=== PATIENT | female | born 1965 | race Caucasian/White ===

== ENCOUNTER 2020-03-10 16:41 | Emergency (ER) | payer SELFPAY ==
[~2020-03-10] VITALS: Ht 170.2 cm; Wt 61.4 kg
[~2020-03-10 16:41] MED LIST: ALPR0.5T PO; AMOX1TAB61 PO; IBUP200T44 PO; LORA-254 PO; NICO1PAT2 TD; TRAM50TA PO
[2020-03-10 16:44] VITALS: BP 127/76
[2020-03-10] MEDS ORDERED: DICL50TA2 PO (17:10)
[2020-03-10] MEDS ORDERED: METH4TAB2 PO (17:10)
[2020-03-10] MEDS ORDERED: HYDR-3165 PO (17:10)
--- NOTE | 2020-03-10 17:10 | PHYS DOC ---
Past History Past Medical History: Cancer, COPD, Depression, Sciatica (MCKENNA BRADLEY APRN) Past Surgical History: Cancer Surgery, Hysterectomy, Tubal ligation (MCKENNA BRADLEY APRN) Smoking: Greater than 1 pack/day Alcohol Use: Occasionally Drug Use: None (YENNEYMCKENNA MCKEON) Adult General Chief Complaint Chief Complaint: BACK PAIN - NO INJURY HPI HPI Patient is a female with history of sciatica, depression, who presents to the ED today complaining of a sharp 8 out of 10 right low back pain radiating to the right lower extremity that has been going on for 3 days. Patient denies any injuries. Patient states the pain is worse on certain movements of the right lower extremity. Denies anything specifically relieving the pain. Denies any loss of bowel/bladder function. Denies any injuries. She states she was seen yesterday at urgent care and was given cyclobenzaprine. She states it is not touching her pain. (MIRNAMCKENNA MCKEON) Review of Systems Review of Systems Constitutional: Denies fever or chills [] GI: Denies abdominal pain, nausea, vomiting, bloody stools or diarrhea [] : Denies dysuria or hematuria [] Musculoskeletal: Reports right low back pain radiating to the right lower extremity Integument: Denies rash or skin lesions [] Neurologic: Denies headache, focal weakness or sensory changes [] All other systems were reviewed and found to be within normal limits, except as documented in this note. (MCKENNA BRADLEY APRN) Allergies Allergies Allergies Coded Allergies Type Severity Reaction Last Updated Verified Sulfa (Sulfonamide Antibiotics) Allergy Intermediate N/V hives 03/10/20 Yes (MCKENNA BRADLEY APRN) Physical Exam Physical Exam Constitutional: Well developed, well nourished, no acute distress, non-toxic appearance. [] Abdomen: Bowel sounds normal, soft, no tenderness, no masses, no pulsatile masses. [] Skin: Warm, dry, no erythema, no rash. [] Back: Moderate tenderness on palpation of the right SI joint, no midline lumbar spine tenderness, no CVA tenderness. [] Positive straight leg raises at approximately 30 degrees on the right lower extremity. Extremities: No tenderness, no cyanosis, no clubbing, ROM intact, no edema. [] Neurologic: Alert and oriented X 3, normal motor function, normal sensory function, no focal deficits noted. [] Psychologic: Affect normal, judgement normal, mood normal. [] (MCKENNA BRADLEY APRN) EKG EKG [] (MCKENNA BRADLEY APRN) Radiology/Procedures Radiology/Procedures [] (MCKENNA BRADLEY APRN) Heart Score Risk Factors: Risk Factors: DM, Current or recent (<one month) smoker, HTN, HLP, family history of CAD, obesity. Risk Scores: Risk Factors: DM, Current or recent (<one month) smoker, HTN, HLP, family history of CAD, obesity. (MCKENNA BRADLEY APRN) Course & Med Decision Making Course & Med Decision Making Pertinent Labs and Imaging studies reviewed. (See chart for details) This is a 54-year-old female patient presented to the ED today with a sciatic pain to the right side, no injuries, no cauda equina syndrome symptoms. Was provided pain relief in the ED with Toradol and Solu-Medrol. Discharge to home. Follow-up with PCP and neurosurgery in 1 to 2 weeks. (MCKENNA BRADLEY APRN) Dragon Disclaimer Dragon Disclaimer This electronic medical record was generated, in whole or in part, using a voice recognition dictation system. (MCKENNA BRADLEY APRN) Departure Departure: Impression: Primary Impression: Sciatica of right side Disposition: 01 DC HOME SELF CARE/HOMELESS Condition: STABLE Referrals: PCP,NO (PCP) follow up with your doctor in 1-2 weeks Patient Instructions: Sciatica, [id number] Additional Instructions: You were evaluated in the emergency room for sciatica. Continue doing the exercises. Take the prescribed medications as ordered. Follow-up with your own doctor in 1 to 2 weeks Scripts Diclofenac Potassium (DICLOFENAC POTASSIUM) 50 Mg Tablet 1 TAB PO BID, #20 TAB 1 Refill Prov: MCKENNA BRADLEY APRN 03/10/20 Methylprednisolone (MEDROL) 4 Mg Tab.ds.pk 1 PKG PO UD, #1 PKG Prov: MCKENNA BRADLEY APRN 03/10/20 Hydrocodone Bit/Acetaminophen (NORCO 5-325 TABLET) 1 Each Tablet 1 TAB PO Q6-8HRS PRN for PAIN, #12 TAB Prov: MCKENNA BRADLEY APRN 03/10/20 MCKENNA BRADLEY APRN Mar 10, 2020 17:10 CANDIDA JOHNSON DO Mar 11, 2020 06:10
[2020-03-10] MEDS ORDERED: KETOROLAC 60 MG/2 ML VIAL. IM ONE (17:30)
[2020-03-10] MEDS ORDERED: methylPREDNISolone SOD SUCC PF 125 MG/2 ML VIAL. IM ONE (17:30)
== END 2020-03-10 18:25 | disposition home or self-care (01) ==
LOC: ER 16:41
DX: M54.41 Lumbago with sciatica, right side (principal); J44.9 Chronic obstructive pulmonary disease, unspecified; Z87.891 Personal history of nicotine dependence; Z90.710 Acquired absence of both cervix and uterus; Z98.51 Tubal ligation status; Z88.2 Allergy status to sulfonamides
CPT/HCPCS: 96372; 99284; J1885; J2930

== ENCOUNTER 2020-03-13 19:46 | Inpatient (IN) | payer SELFPAY ==
[~2020-03-13] VITALS: Ht 170.2 cm; Wt 63.0 kg
[~2020-03-13 19:46] MED LIST changes: +DICL50TA2 PO; +HYDR-3165 PO; +METH4TAB2 PO
--- NOTE | 2020-03-13 20:06 | PHYS DOC ---
Past History Past Medical History: Cancer, COPD, Depression, Sciatica Past Surgical History: Cancer Surgery, Hysterectomy, Tubal ligation Additional Past Surgical Histo: mastectomy with breast reconstruction Smoking: Greater than 1 pack/day Alcohol Use: None Drug Use: None General Adult EDM: Chief Complaint: ABDOMINAL PAIN HPI: HPI: 54-year-old female presents via EMS with epigastric abdominal pain. It started this morning as she got out of bed. She denies any falls or trauma. It came out of nowhere. It is a sharp cramping sensation. It was coming and going in waves but now is pretty persistent. She rates it an 8 out of 10. She denies vomiting. No dysuria or urinary frequency. She admits to having constipation for years. She has no history of pancreatitis. She has been drinking more alcohol lately because she is getting . She used to drink heavily. She denies fever or chills. Review of Systems: Review of Systems: Constitutional: Denies fever or chills Eyes: Denies change in visual acuity HENT: Denies nasal congestion or sore throat Respiratory: Denies cough or shortness of breath Cardiovascular: Denies chest pain or edema GI: Epigastric abdominal pain. Denies nausea, vomiting, bloody stools or diarrhea : Denies dysuria Musculoskeletal: Denies back pain or joint pain Integument: Denies rash Neurologic: Denies headache, focal weakness or sensory changes Endocrine: Denies polyuria or polydipsia Lymphatic: Denies swollen glands Psychiatric: Denies depression or anxiety Allergies: Allergies: Allergies Coded Allergies Type Severity Reaction Last Updated Verified Sulfa (Sulfonamide Antibiotics) Allergy Intermediate N/V hives 03/10/20 Yes Physical Exam: PE: Constitutional: Well developed, well nourished, no acute distress, non-toxic appearance. [] HENT: Normocephalic, atraumatic, bilateral external ears normal, oropharynx moist, no oral exudates, nose normal. [] Eyes: PERRLA, EOMI, conjunctiva normal, no discharge. [] Neck: Normal range of motion, no tenderness, supple, no stridor. [] Cardiovascular: Heart rate 102, regular rhythm, no murmur [] Lungs & Thorax: Bilateral breath sounds clear to auscultation [] Abdomen: Bowel sounds normal, soft, epigastric tenderness, no masses, no pulsatile masses. [] Skin: Warm, dry, no erythema, no rash. [] Back: No tenderness, no CVA tenderness. [] Extremities: No tenderness, no cyanosis, no clubbing, ROM intact, no edema. [] Neurologic: Alert and oriented X 3, normal motor function, normal sensory function, no focal deficits noted. [] Psychologic: Affect normal, judgement normal, mood normal. [] Current Patient Data: Vital Signs: Vital Signs Date Time Temp Pulse Resp B/P (MAP) Pulse Ox O2 Delivery O2 Flow Rate FiO2 03/13/20 19:48 97.7 114 22 160/100 (120) 98 EKG: EKG: [] Radiology/Procedures: Radiology/Procedures: [] Impressions: Exam: CT of abdomen and pelvis with contrast INDICATION: Epigastric pain TECHNIQUE: Sequential axial images through the abdomen and pelvis obtained following the administration of 75 mL of Omni 300 IV contrast. Sagittal and coronal reformatted images were reconstructed from the axial data and reviewed. Comparisons: None FINDINGS: Heart size is normal. No pericardial effusion. Visualized lung bases are clear. No pleural effusion. Diffuse hepatic steatosis. Spleen, gallbladder and adrenals are unremarkable. Inflammatory changes surrounding the pancreas. There is mild pancreatic ductal dilatation. Calcification is noted at the pancreatic head. Kidneys demonstrate symmetric enhancement. No perinephric inflammation or hydronephrosis. No renal or ureteral calculi are identified. Bladder is decompressed not well evaluated. Uterus is not enlarged. No abnormal adnexal mass. Large and small bowel are unremarkable. Appendix is normal. No free intra-abdominal air or fluid. No obstruction. Abdominal aorta has a normal course and caliber. Abdominal vasculature is patent. No enlarged abdominal lymph nodes are identified. No suspicious osseous lesions or acute fractures. IMPRESSION: 1. Findings of acute pancreatitis. No peripancreatic fluid collection. 2. Calcifications at the pancreatic head with mild pancreatic ductal dilatation, likely sequela of chronic pancreatitis. 3. Hepatic steatosis. Exposure: One or more of the following in the visualized dose reduction techniques were utilized for this examination: 1. Automated exposure control 2. Adjustment of the MA and/or KV according to patient size 3. Use of iterative of reconstructive technique Electronically signed by: Janette Dutton MD (03/13/2020 9:36 PM) [id number] DICTATED AND SIGNED BY: JANETTE DUTTON MD DATE: 03/13/202135 CC: COLT SALINAS DO; PCP,SARTHAK ~ Heart Score: Risk Factors: Risk Factors: DM, Current or recent (<one month) smoker, HTN, HLP, family history of CAD, obesity. Risk Scores: Score 0 - 3: 2.5% MACE over next 6 weeks - Discharge Home Score 4 - 6: 20.3% MACE over next 6 weeks - Admit for Clinical Observation Score 7 - 10: 72.7% MACE over next 6 weeks - Early Invasive Strategies Course & Med Decision Making: Course & Med Decision Making Pertinent Labs and Imaging studies reviewed. (See chart for details) The patient CT scan shows acute pancreatitis on possible chronic pancreatitis. I have given the patient morphine and will now give her a milligram of Dilaudid. She has not eaten anything today. She understands she cannot eat or drink anything. I will let her have ice chips. Her lipase is over 700. Not sure if her levels increasing or decreasing. I spoke with Dr. Gómez and he has accepted the patient for admission. [] Conrad Disclaimer: Conrad Disclaimer: This electronic medical record was generated, in whole or in part, using a voice recognition dictation system. Departure Departure: Impression: Primary Impression: Pancreatitis Disposition: ADMITTED INPT THIS HOSP Admitting Physician: Isela Gómez Condition: STABLE Referrals: PCP,NO (PCP) COLT SALINAS DO Mar 13, 2020 20:06
[2020-03-13] MEDS ORDERED: IOHEXOL 300 MG/ML 75 ML VIAL. IV ONE (20:15)
[2020-03-13] MEDS ORDERED: ONDANSETRON PF 4 MG/2 ML VIAL. IVP ONE (20:15)
[2020-03-13] MEDS ORDERED: MORPHINE SULFATE 4 MG/ML DISP.SYRIN. IV ONE (20:15)
[2020-03-13 20:20] LABS: CALCIUM 9.2 mg/dL (8.5-10.1); CREATININE 0.8 mg/dL (0.6-1.0); GFR 74.7; POTASSIUM 3.4 mmol/L (3.5-5.1)
[2020-03-13 20:26] LABS: ALBUMIN 3.2 g/dL (3.4-5.0); TOTAL BILIRUBIN 1.1 mg/dL (0.2-1.0); TOTAL PROTEIN 6.3 g/dL (6.4-8.2)
[2020-03-13] MEDS ORDERED: CONTRAST GIVEN. MC PRN (20:30)
[2020-03-13 20:34] LABS: BASO % 0 % (0-3); EOS % 0 % (0-3); HEMATOCRIT 38.6 % (36.0-47.0); HEMOGLOBIN 12.8 g/dL (12.0-15.5); LYMPH # 2.8 x10^3/uL (1.0-4.8); LYMPH % 22 % (24-48); MEAN CORPUSCULAR HEMOGLOBIN 41 pg (25-35); MEAN CORPUSCULAR HGB CONC 33 g/dL (31-37); MEAN CORPUSCULAR VOLUME 122 fL (79-100); MONO # 0.8 x10^3/uL (0.0-1.1); MONO % 6 % (0-9); NEUT # 9.1 x10^3uL (1.8-7.7); NEUT % 71 % (31-73); PLATELET COUNT 307 x10^3/uL (140-400); RED BLOOD COUNT 3.17 x10^6/uL (3.50-5.40); RED CELL DISTRIBUTION WIDTH 24.7 % (11.5-14.5); WHITE BLOOD COUNT 12.8 x10^3/uL (4.0-11.0)
[2020-03-13 21:02] LABS: % EOS 1 % (0-5); % LYMPHS 29 % (24-48); % MONOS 3 % (0-10); % SEGS 67 % (35-66)
[2020-03-13 21:03] LABS: ANISOCYTOSIS MOD; PLT ESTIMATE ADEQUATE (ADEQUATE)
--- NOTE | 2020-03-13 21:38 | RAD ---
Exam: CT of abdomen and pelvis with contrast INDICATION: Epigastric pain TECHNIQUE: Sequential axial images through the abdomen and pelvis obtained following the administration of 75 mL of Omni 300 IV contrast. Sagittal and coronal reformatted images were reconstructed from the axial data and reviewed. Comparisons: None FINDINGS: Heart size is normal. No pericardial effusion. Visualized lung bases are clear. No pleural effusion. Diffuse hepatic steatosis. Spleen, gallbladder and adrenals are unremarkable. Inflammatory changes surrounding the pancreas. There is mild pancreatic ductal dilatation. Calcification is noted at the pancreatic head. Kidneys demonstrate symmetric enhancement. No perinephric inflammation or hydronephrosis. No renal or ureteral calculi are identified. Bladder is decompressed not well evaluated. Uterus is not enlarged. No abnormal adnexal mass. Large and small bowel are unremarkable. Appendix is normal. No free intra-abdominal air or fluid. No obstruction. Abdominal aorta has a normal course and caliber. Abdominal vasculature is patent. No enlarged abdominal lymph nodes are identified. No suspicious osseous lesions or acute fractures. IMPRESSION: 1. Findings of acute pancreatitis. No peripancreatic fluid collection. 2. Calcifications at the pancreatic head with mild pancreatic ductal dilatation, likely sequela of chronic pancreatitis. 3. Hepatic steatosis. Exposure: One or more of the following in the visualized dose reduction techniques were utilized for this examination: 1. Automated exposure control 2. Adjustment of the MA and/or KV according to patient size 3. Use of iterative of reconstructive technique Electronically signed by: Janette Delgado MD (03/13/2020 9:36 PM) [id number]
[2020-03-13] MEDS ORDERED: HYDROmorphone PF 1 MG/ML DISP.SYRIN ONE (22:02)
[2020-03-13] MEDS ORDERED: IV DEXTROSE 5 %-0.45 % NACL 1,000 ML IV ONE (22:15)
[2020-03-13] MEDS ORDERED: ONDANSETRON PF 4 MG/2 ML VIAL. IVP PRN (22:15)
[2020-03-13] MEDS ORDERED: ACETAMINOPHEN 325 MG TABLET PO PRN (22:15)
[2020-03-13] MEDS ORDERED: PIPERACILLIN/TAZOBACTAM 3.375 GM VIAL IV ONE (22:19)
[2020-03-13] MEDS ORDERED: IV NORMAL SALINE 50ML 50 ML ONE (22:19)
[2020-03-13] MEDS ORDERED: PIPERACILLIN/TAZOBACTAM 3.375 GM in IV NORMAL SALINE 50ML 50 ML IV ONE (22:30)
[2020-03-13] MEDS ORDERED: HYDROmorphone PF 1 MG/ML DISP.SYRIN IVP ONE (22:30)
[2020-03-13] MEDS ORDERED: IV NORMAL SALINE 1,000ML 1,000 ML IV ONE (23:00)
[2020-03-13 23:27] VITALS: BP 157/79
[2020-03-13] MEDS: HYDROmorphone PF 1 MG/ML DISP.SYRIN IV PRN (23:50)
[2020-03-14] MEDS ORDERED: Influenza vaccine per PROTOCOL. MC PRN (01:15)
[2020-03-14] MEDS: HYDROmorphone PF 1 MG/ML DISP.SYRIN IV PRN ×9 (02:18→20:21)
--- NOTE | 2020-03-14 05:21 | NUR ---
at 2313 on 03/13/2020 The patient, YUNI SCHUSTER, 54 y/o, F admitted by TRISTIAN ESPANA MD, was given written information regarding hospital policies, unit procedures and contact persons. Valuables were checked and .documented. Pt alert responds appropriately and VSS. Pain reported upper abdomen.
--- NOTE | 2020-03-14 05:27 | NUR ---
Pt has been cooperative through the night. Pain of upper abdomen persists. PRN hydromorphone has been given x3 since admission and pt has reported some pain relief with each dose and has slept off and on.
[2020-03-14 05:36] VITALS: BP 106/69
[2020-03-14] MEDS ORDERED: FLU VACC QS 2020-21(6MOS+)/PF 0.5 ML SYRINGE. VAX IM ONE (09:00)
[2020-03-14 10:46] VITALS: BP 101/66
[2020-03-14] MEDS ORDERED: HALOPERIDOL LACT 5 MG/ML VIAL. IM PRN (15:00)
[2020-03-14] MEDS ORDERED: cloNIDine HCL 0.1 MG TABLET PO PRN (15:00)
[2020-03-14] MEDS ORDERED: diphenhydrAMINE 50 MG/ML VIAL IVP PRN (15:00)
[2020-03-14 15:12] VITALS: BP 109/69
--- NOTE | 2020-03-14 15:27 | HP ---
ADMIT DATE: 03/13/2020 HISTORY OF PRESENT ILLNESS: The patient is a 54-year-old female patient who came to the Emergency Room with complaint of abdominal pain, mostly in epigastric area, started on the day of admission, as she got out of bed. She denied any falls or trauma. It came out of nowhere. It is a sharp, cramping sensation which is coming and going in waves, but now by the time she arrived to the Emergency Room, it was very persistent and rated about 8/10. Denied any vomiting, dysuria or urinary frequency. Did complain of constipation and she has a history of pancreatitis about 5 years ago related to gallstones. It passed on its own. She has been drinking alcohol lately because she is getting . She used to drink heavily. The last drink was about a pint of whiskey 2 days ago. Denied any fevers or chills. She was extensively investigated in the Emergency Room, and she has had a CT scan of the abdomen and pelvis, which basically showed that the patient has finding of acute pancreatitis. No peripancreatic fluid collection. Calcification of the pancreatic head with mild pancreatic ductal dilatation, likely sequelae of chronic pancreatitis. She has also hepatic steatosis. Her lab work showed that her serum lipase was high at 764 and has mild leukocytosis with a white cell count 12,800. Her MCV was extremely high at 122. However, the platelet counts are normal. The patient was admitted with probably acute on chronic alcohol-induced pancreatitis. She was kept n.p.o., started on IV fluid and IV hydromorphone. We will monitor her lab work closely. We will start her on alcohol withdrawal protocol and also a banana bag on a daily basis and once her serum lipase normalized and she is able to eat and drink, she can be discharged home. TRISTIAN ESPANA MD DR: ALLYSON/mercedes JOB#: [id number] / [id number]
[2020-03-14 16:02] LABS: ALBUMIN 2.6 g/dL (3.4-5.0); CALCIUM 8.1 mg/dL (8.5-10.1); CREATININE 0.6 mg/dL (0.6-1.0); GFR 104.2; TOTAL PROTEIN 5.2 g/dL (6.4-8.2)
[2020-03-14 16:22] LABS: POTASSIUM 2.9 mmol/L (3.5-5.1)
[2020-03-14] MEDS: POTASSIUM CL 40MEQ D5-0.45NACL 1,000 ML IV SCH (16:52)
[2020-03-14 19:15] VITALS: BP 93/60
[2020-03-14] MEDS: HYDROmorphone PF 1 MG/ML DISP.SYRIN IVP PRN (22:51)
[2020-03-14 23:16] VITALS: BP 90/58
[2020-03-15] MEDS: HYDROmorphone PF 1 MG/ML DISP.SYRIN IVP PRN ×6 (01:12→23:46)
[2020-03-15] MEDS: POTASSIUM CL 40MEQ D5-0.45NACL 1,000 ML IV SCH (03:52)
[2020-03-15 05:16] VITALS: BP 110/70
[2020-03-15 07:08] LABS: ALBUMIN 2.4 g/dL (3.4-5.0); ALBUMIN/GLOBULIN RATIO 0.9 (1.0-1.7); CALCIUM 7.7 mg/dL (8.5-10.1); CREATININE 0.5 mg/dL (0.6-1.0); GFR 128.6; POTASSIUM 3.6 mmol/L (3.5-5.1); TOTAL BILIRUBIN 0.8 mg/dL (0.2-1.0)
[2020-03-15] MEDS: MVI, ADULT NO.4 WITH VIT K 10 ML, THIAMINE INJ 100 MG, FOLIC ACID INJ 1 MG in IV NORMAL... IV SCH (08:46)
[2020-03-15 10:29] VITALS: BP 120/81
[2020-03-15 15:31] VITALS: BP 132/82
[2020-03-15 19:11] VITALS: BP 155/100
--- NOTE | 2020-03-15 21:59 | NUR ---
Pt was in bed apon assessment and med pass. Pt had complaints of abd pain at a 7 of 10. Pt received dilaudid per order. Pt stated she feels much better compared to when she was admitted. Pt was calm and cooperative this evening with staff, currently resting in bed. Will continue to monitor.
[2020-03-15 23:34] VITALS: BP 130/89
[2020-03-16] MEDS: HYDROmorphone PF 1 MG/ML DISP.SYRIN IVP PRN ×4 (02:08→10:53)
[2020-03-16] MEDS: POTASSIUM CL 40MEQ D5-0.45NACL 1,000 ML IV SCH ×2 (02:51→07:00)
[2020-03-16 05:47] VITALS: BP 143/90
[2020-03-16 06:59] LABS: CREATININE 0.5 mg/dL (0.6-1.0); GFR 128.6; POTASSIUM 3.8 mmol/L (3.5-5.1)
--- NOTE | 2020-03-16 07:49 | NUR ---
MEDICATION NOTE-New bag of IVF not administered at this time, current bag more than half full. Will change when empty.
[2020-03-16] MEDS: MVI, ADULT NO.4 WITH VIT K 10 ML, THIAMINE INJ 100 MG, FOLIC ACID INJ 1 MG in IV NORMAL... IV SCH (08:32)
--- NOTE | 2020-03-16 08:59 | PN ---
DATE: 03/15/2020 SUBJECTIVE: The patient is resting, slightly propped up in bed, in no apparent distress. On questioning her, she stated her pain is much less severe than before. Denied any nausea or vomiting. Denied any diarrhea. Denied any chills, rigors or fever. PHYSICAL EXAMINATION: GENERAL: When I examined her, she was pale, cachectic, but no jaundice, cyanosis or thyromegaly. No jugular venous distention. No limb edema. VITAL SIGNS: Her heart rate was 89, blood pressure 120/81, temperature was 98.8, respiratory rate 20, and oxygen saturation was 94% on room air. HEAD, EYES, EARS, NOSE AND THROAT: Normocephalic, atraumatic. NECK: Supple. HEART: Showed normal first and second heart sounds. No gallop or murmur. CHEST: Clear to auscultation. No crepitation or rhonchi. ABDOMEN: Distended, soft, mild tenderness in epigastric area. NEUROLOGIC: She is awake, alert, responding appropriately. All cranial nerves intact. She moves extremities without difficulty. She ambulates without assistance or assistive devices. Her intake was 1500, no output was recorded. LABORATORY DATA: Her lab work this morning showed a hemoglobin of 12.8, hematocrit 38.6 with white cell count of 12,800 and platelets 307,000. Her chemistry showed her serum sodium was 135, potassium 3.5, chloride was 101, bicarbonate 25, anion gap of 9, BUN 11, creatinine was 0.5, estimated GFR was 128 mL per minute. Her glucose was 97, calcium was 7.7. Total bilirubin, AST, ALT, alkaline phosphatase were normal. Total protein 5, albumin was 2.4 and serum lipase was 760. ASSESSMENT: 1. Acute alcohol-induced pancreatitis. 2. Chronic calcific pancreatitis. 3. Other medical problems include chronic obstructive pulmonary disease, sciatica, breast cancer, status post bilateral mastectomy and bilateral breast implant. PLAN: To start her on a clear liquid diet and advance as tolerated. Hopefully, if her serum lipase normalizes tomorrow morning, she can be discharged home. TRISTIAN ESPANA MD DR: ALLYSON/mercedes JOB#: [id number] / [id number]
[2020-03-16 12:06] VITALS: BP 122/77
--- NOTE | 2020-03-16 14:24 | DS ---
DATE OF DISCHARGE: 03/13/2020 HOSPITAL COURSE: The patient is resting, slightly propped up in bed, in no apparent distress. She has had no more pain. She is tolerating her diet without any difficulty and her serum lipase is down to 427. Her serum potassium is normalized at 3.8 and a decision was made to discharge her home. PHYSICAL EXAMINATION: GENERAL: When I examined her, she was pale, cachectic, but no jaundice, cyanosis, or thyromegaly. No jugular venous distension. No limb edema. VITAL SIGNS: Her heart rate was 103, blood pressure was 122/77, temperature was 98.4, respiratory rate was 18 and oxygen saturation was 94% on room air. HEAD, EYES, EARS, NOSE AND THROAT: Normocephalic, atraumatic. NECK: Supple. CARDIAC: Normal first and second heart sounds. No gallop, rub or murmur. CHEST: Clear to auscultation. No crepitation or rhonchi. ABDOMEN: Distended, soft, nontender. NEUROLOGIC: She was awake, alert, responding appropriately. All cranial nerves intact. She moves extremities without difficulty. She ambulates without assistance or assistive devices. Her intake was 1470, no output was recorded. LABORATORY DATA: Her lab work this morning showed a serum sodium 134, potassium 3.8, chloride 99, bicarbonate 29, anion gap of 6, BUN 5, creatinine was 0.5, estimated GFR was 128 mL per minute. Her glucose was 84, calcium was 8 and serum lipase was 427. DISCHARGE MEDICATIONS: She was discharged home to continue on alprazolam 0.5 mg daily, diclofenac potassium 50 mg twice a day. The patient was warned that this might cause gastritis and acid reflux. Hydrocodone/APAP 5/325 one tablet every 6 hours. She was also given a tapering course of Ativan 1 mg 3 times a day for 3 days, 1 mg twice a day for 3 days and then 1 mg once a day for 3 days. She was discharged also on omeprazole 40 mg once a day. FINAL DISCHARGE DIAGNOSES: 1. Acute alcohol-induced pancreatitis. The patient has also chronic calcific pancreatitis. 2. Chronic obstructive pulmonary disease. 3. Sciatica. 4. Breast cancer, status post bilateral mastectomy and bilateral breast implant. AHMED M. MALORIE, MD DR: ALLYSON/mecredes JOB#: [id number] / [id number]
--- NOTE | 2020-03-16 14:43 | NUR ---
DISCHARGE-Pt discharge to home for self care. Pt escorted to waiting vehicle via wheelchair by hospital staff. All personal belongings sent with pt, as well as discharge papers et hard prescriptions.
== END 2020-03-16 14:42 | disposition home or self-care (01) | DRG 440 ==
LOC: ER 19:46 → 1 SOUTH 22:00 → ER 23:06
PROVIDERS: ADMIT Internal Medicine; ATTEND Internal Medicine
DX: K85.20 Alcohol induced acute pancreatitis without necrosis or infection (principal); J44.9 Chronic obstructive pulmonary disease, unspecified; K86.0 Alcohol-induced chronic pancreatitis; F10.20 Alcohol dependence, uncomplicated; K76.0 Fatty (change of) liver, not elsewhere classified; M54.30 Sciatica, unspecified side; Z85.3 Personal history of malignant neoplasm of breast; Z87.891 Personal history of nicotine dependence; Z90.13 Acquired absence of bilateral breasts and nipples; Z90.710 Acquired absence of both cervix and uterus; Z98.82 Breast implant status; F32.9 Major depressive disorder, single episode, unspecified; Z98.51 Tubal ligation status; Z88.2 Allergy status to sulfonamides
CPT/HCPCS: 36415; 74177; 80048; 80053; 83690; 85007; 85025; 90471; 96365; 96375; 99285; 99406; J1170; J2060; J2270; J2405; J2543; J7042; Q9967; 90686; J7030

== ENCOUNTER 2020-03-22 11:55 | Emergency (ER) | payer SELFPAY ==
[~2020-03-22] VITALS: Ht 170.2 cm; Wt 63.0 kg
[2020-03-22] MEDS ORDERED: predniSONE 20 MG TABLET PO ONE (12:30)
[2020-03-22] MEDS ORDERED: HYDROcodone/APAP 7.5/325MG 1 TAB TABLET PO ONE (12:30)
--- NOTE | 2020-03-22 12:33 | PHYS DOC ---
Past History Past Medical History: Cancer, COPD, Depression, Pancreatitis, Sciatica, Other Additional Past Medical Histor: SCOLIOSIS, DDD, KYPHOSIS Past Surgical History: Cancer Surgery, Hysterectomy, Tubal ligation Additional Past Surgical Histo: double mastectomy with breast reconstruction Smoking: Greater than 1 pack/day Alcohol Use: None Drug Use: None General Adult EDM: Chief Complaint: BACK PAIN OR INJURY HPI: HPI: 54-year-old female presents with right lower back pain and sciatic symptoms down to her foot. The patient has had issues with her low back and sciatica symptoms on the side for some time. She does not have insurance. She was recently admitted to the hospital for pancreatitis which is improved. She has had loss of bladder on her way to the restroom twice recently. She thinks it is due to the sciatic discomfort. The pain is constant and only waxes and wanes. It does not go away. She just does not know what else to do. She does not have a primary care physician. She has not seen a neurosurgeon. She just wants the pain to go away so she can function at home. She denies any new trauma or falls. She feels unsteady on her feet and is worried about falling due to the pain. Review of Systems: Review of Systems: Constitutional: Denies fever or chills Eyes: Denies change in visual acuity HENT: Denies nasal congestion or sore throat Respiratory: Denies cough or shortness of breath Cardiovascular: Denies chest pain or edema GI: Denies abdominal pain, nausea, vomiting, bloody stools or diarrhea : Denies dysuria Musculoskeletal: Back pain with right-sided radiculopathy Integument: Denies rash Neurologic: Denies headache, focal weakness or sensory changes Endocrine: Denies polyuria or polydipsia Lymphatic: Denies swollen glands Psychiatric: Denies depression or anxiety Allergies: Allergies: Allergies Coded Allergies Type Severity Reaction Last Updated Verified Sulfa (Sulfonamide Antibiotics) Allergy Intermediate N/V hives 03/22/20 Yes Physical Exam: PE: Constitutional: Well developed, well nourished, no acute distress, non-toxic appearance. [] HENT: Normocephalic, atraumatic, bilateral external ears normal, oropharynx moist, no oral exudates, nose normal. [] Eyes: PERRLA, EOMI, conjunctiva normal, no discharge. [] Neck: Normal range of motion, no tenderness, supple, no stridor. [] Cardiovascular: Heart rate regular rhythm, no murmur [] Lungs & Thorax: Bilateral breath sounds clear to auscultation [] Abdomen: Bowel sounds normal, soft, no tenderness, no masses, no pulsatile masses. [] Skin: Warm, dry, no erythema, no rash. [] Back: Right lower back tenderness, no CVA tenderness. [] Extremities: No tenderness, no cyanosis, no clubbing, ROM intact, no edema. [] Neurologic: Alert and oriented X 3, normal motor function, normal sensory function, no focal deficits noted. [] Psychologic: Affect normal, judgement normal, mood tearful. [] Current Patient Data: Vital Signs: Vital Signs Date Time Temp Pulse Resp B/P (MAP) Pulse Ox O2 Delivery O2 Flow Rate FiO2 03/22/20 12:05 98.3 117 18 106/73 (84) 97 Room Air EKG: EKG: [] Radiology/Procedures: Radiology/Procedures: [] Heart Score: Risk Factors: Risk Factors: DM, Current or recent (<one month) smoker, HTN, HLP, family history of CAD, obesity. Risk Scores: Score 0 - 3: 2.5% MACE over next 6 weeks - Discharge Home Score 4 - 6: 20.3% MACE over next 6 weeks - Admit for Clinical Observation Score 7 - 10: 72.7% MACE over next 6 weeks - Early Invasive Strategies Course & Med Decision Making: Course & Med Decision Making Pertinent Labs and Imaging studies reviewed. (See chart for details) All over the handoff of the patient is an increase in her pain medication temporarily as well as another round of prednisone treatment. I have stressed the important is for her to go to a specialist for future management. She will follow-up with the digital engineer to see if she can get Medicaid. [] Dragon Disclaimer: Conrad Disclaimer: This electronic medical record was generated, in whole or in part, using a voice recognition dictation system. Departure Departure: Impression: Primary Impression: Sciatica of right side Disposition: 01 DC HOME SELF CARE/HOMELESS Condition: STABLE Referrals: PCP,NO (PCP) Patient Instructions: Sciatica, [id number] Scripts Prednisone (PREDNISONE) 10 Mg Tablet 50 MG PO DAILY for sciatic pain for 4 Days, #20 TAB Prov: COLT SALINAS DO 03/22/20 Hydrocodone Bit/Acetaminophen (NORCO 7.5-325 TABLET) 1 Each Tablet 1 TAB PO PRN Q6HRS PRN for PAIN, #14 TAB 0 Refills Prov: COLT SALINAS DO 03/22/20 COLT SALINAS DO Mar 22, 2020 12:33
[2020-03-22 13:22] VITALS: BP 110/68
[2020-03-22] MEDS ORDERED: HYDR-3166 PO (13:45)
[2020-03-22] MEDS ORDERED: PRED-220 PO (13:45)
== END 2020-03-22 13:50 | disposition home or self-care (01) ==
LOC: ER 11:55
DX: M54.41 Lumbago with sciatica, right side (principal); J44.9 Chronic obstructive pulmonary disease, unspecified; Z87.891 Personal history of nicotine dependence; Z90.710 Acquired absence of both cervix and uterus; Z98.51 Tubal ligation status; Z88.2 Allergy status to sulfonamides
CPT/HCPCS: 99283; J7512

== ENCOUNTER 2020-05-07 17:01 | Emergency (ER) | payer SELFPAY ==
[~2020-05-07] VITALS: Ht 170.2 cm; Wt 50.1 kg
[~2020-05-07 17:01] MED LIST changes: +HYDR-3166 PO; +PRED-220 PO
[2020-05-07] MEDS ORDERED: KETOROLAC 60 MG/2 ML VIAL. IM ONE (18:00)
[2020-05-07] MEDS ORDERED: CYCLOBENZAPRINE 10 MG TABLET. PO ONE (18:00)
--- NOTE | 2020-05-07 18:04 | PHYS DOC ---
Past History Past Medical History: Cancer, COPD, Depression, Pancreatitis, Sciatica, Other Additional Past Medical Histor: SCOLIOSIS, DDD, KYPHOSIS (LUIZA ABEBE APRN) Past Surgical History: Cancer Surgery, Hysterectomy, Tubal ligation Additional Past Surgical Histo: double mastectomy with breast reconstruction (LUIZA ABEBE APRN) Smoking: Greater than 1 pack/day Alcohol Use: None Drug Use: None (LUIZA ABEBE APRN) General Adult EDM: Chief Complaint: BACK PAIN OR INJURY HPI: HPI: Patient is a 54-year-old female who presents with right-sided leg pain. Patient states she has been seen for this complaints many times in the ER. Patient states that the symptoms started 3 months ago and she has been diagnosed with a pinched nerve. She reports that the pain radiates down her but all the way down her right leg. Patient has been taking ibuprofen at home with little relief. States "I do not have any insurance and that is why have been dealing with this for 3 months". (LUIZA ABEBE APRN) Review of Systems: Review of Systems: Constitutional: Denies fever or chills Eyes: Denies change in visual acuity HENT: Denies nasal congestion or sore throat Respiratory: Denies cough or shortness of breath Cardiovascular: Denies chest pain or edema GI: Denies abdominal pain, nausea, vomiting, bloody stools or diarrhea : Denies dysuria Musculoskeletal: Reports right-sided pain that goes down her leg, denies or joint pain Integument: Denies rash Neurologic: Denies headache, focal weakness or sensory changes Endocrine: Denies polyuria or polydipsia Lymphatic: Denies swollen glands Psychiatric: Denies depression or anxiety (LUIZA ABEBE APRN) Current Medications: Current Meds: Current Medications Medications (Trade) Dose Ordered Sig/Travis Start Time Stop Time Status Last Admin Dose Admin Cyclobenzaprine HCl (Flexeril) 10 mg 1X ONCE 05/07/20 18:00 05/07/20 18:01 Ketorolac Tromethamine (Toradol Im) 60 mg 1X ONCE 05/07/20 18:00 05/07/20 18:01 UNV (LUIZA ABEBE APRN) Allergies: Allergies: Allergies Coded Allergies Type Severity Reaction Last Updated Verified Sulfa (Sulfonamide Antibiotics) Allergy Intermediate N/V hives 11/2/20 Yes (LUIZA ABEBE APRN) Physical Exam: PE: Constitutional: Well developed, well nourished, no acute distress, non-toxic appearance. [] HENT: Normocephalic, atraumatic, bilateral external ears normal, oropharynx moist, no oral exudates, nose normal. [] Eyes: PERRLA, EOMI, conjunctiva normal, no discharge. [] Neck: Normal range of motion, no tenderness, supple, no stridor. [] Cardiovascular:Heart rate regular rhythm, no murmur [] Lungs & Thorax: Bilateral breath sounds clear to auscultation [] Abdomen: Bowel sounds normal, soft, no tenderness, no masses, no pulsatile masses. [] Skin: Warm, dry, no erythema, no rash. [] Back: No tenderness, no CVA tenderness. [] Extremities: Pain that radiates down right leg into the foot, no cyanosis, no clubbing, ROM intact, no edema. [] Neurologic: Alert and oriented X 3, normal motor function, normal sensory func tion, no focal deficits noted. [] Psychologic: Affect normal, judgement normal, mood normal. [] (LUIZA ABEBE APRN) EKG: EKG: [] (LUIZA ABEBE APRN) Radiology/Procedures: Radiology/Procedures: [] (LUIZA ABEBE APRN) Heart Score: Risk Factors: Risk Factors: DM, Current or recent (<one month) smoker, HTN, HLP, family history of CAD, obesity. Risk Scores: Score 0 - 3: 2.5% MACE over next 6 weeks - Discharge Home Score 4 - 6: 20.3% MACE over next 6 weeks - Admit for Clinical Observation Score 7 - 10: 72.7% MACE over next 6 weeks - Early Invasive Strategies (LUIZA ABEBE APRN) Course & Med Decision Making: Course & Med Decision Making Pertinent Labs and Imaging studies reviewed. (See chart for details) [] 54-year-old female presents with sciatic pain. Will give Toradol IM and Flexeril in the ED. Sending patient home with Medrol Dosepak and Flexeril. Instructed patient to follow-up with PCP or return to the ED if pain increases. (LUIZA ABEBE APRN) Course & Med Decision Making I have participated in the care of this patient and I have reviewed and agree with all pertinent clinical information above including history, exam, and recommendations. (SANDIP CARRION MD) Arielleon Disclaimer: Conrad Disclaimer: This electronic medical record was generated, in whole or in part, using a voice recognition dictation system. (LUIZA ABEBE APRN) Departure Departure: Impression: Primary Impression: Sciatica of right side Referrals: PCP,NO (PCP) Patient Instructions: Sciatica, [id number] Additional Instructions: EMERGENCY DEPARTMENT GENERAL DISCHARGE INSTRUCTIONS THANK YOU for coming to [facility] Emergency Department (ED) today and trusting us with your care. We trust that you had a positive experience in our Emergency Department. If you wish to speak to the department Management you can contact the director emergency department at . YOUR FOLLOW UP INSTRUCTIONS ARE FOLLOWS: Do you have a private doctor? If you do not have a private doctor, please ask for a resource list of physicians or clinics that may be able to assist you with follow up care. The Emergency Physician has interpreted your x-rays. The X-ray specialist will also review them. If there is a change in the findings you will be notified in 48 hours when at all possible. A lab test or lab culture may have been done, your results will be reviewed and you will be notified if you need a change in treatment. ADDITIONAL INSTRUCTIONS AND INFORMATION Your care today has been supervised by a physician who is specially trained in emergency care. Many problems require more than one evaluation for a complete diagnosis and treatment. We recommend that you schedule your follow up appointment as recommended to ensure complete treatment of your illness or injury. If you are unable to obtain follow up care and continue to have a problem, or if your condition worsens we recommend that you return to the ED. We are not able to safely determine your condition over the phone nor are we able to give sound medical advice over the phone. For these safety reasons, if you call for medical advice we will ask you to come to the ED for further evaluation If you have any questions regarding these discharge instructions please call the ED at . SAFETY INFORMATION In the interest of safety, wellness, and injury prevention; we encourage you to wear your seatbelt, if you smoke; quit smoking, and we encourage your family to use protective helmet for bicycling and other sporting events that present an increased risk for head injury. IF YOUR SYMPTOMS WORSEN OR NEW SYMPTOMS DEVELOP, OR YOU HAVE CONCERNS ABOUT YOUR CONDITION; OR IF YOUR CONDITION WORSENS WHILE YOU ARE WAITING FOR YOUR FOLLOW UP APPOINTMENT; EITHER CONTACT YOUR PRIMARY CARE DOCTOR, THE PHYSICIAN WHOSE NAME AND NUMBER YOU WERE GIVEN, OR RETURN TO THE ED IMMEDIATELY. Scripts Cyclobenzaprine Hcl (CYCLOBENZAPRINE HCL) 10 Mg Tablet 10 MG PO TID for pain for 10 Days, #30 TAB Prov: LUIZA ABEBE APRN 05/07/20 Methylprednisolone (MEDROL) 4 Mg Tab.ds.pk 1 PKG PO UD PRN for PAIN for 6 Days, #1 PKG 0 Refills Prov: LUIZA ABEBE APRN 05/07/20 Cyclobenzaprine Hcl (CYCLOBENZAPRINE HCL) 10 Mg Tablet 10 MG PO TID PRN for pain, #30 TAB Prov: LUIZA ABEBE APRN 05/07/20 Methylprednisolone (MEDROL) 4 Mg Tab.ds.pk 1 PKG PO UD PRN for PAIN for 6 Days, #1 PKG 0 Refills Prov: LUIZA ABEBE APRN 05/07/20 LUIZA ABEBE APRN May 07, 2020 18:04 SANDIP CARRION MD May 09, 2020 06:01
[2020-05-07] MEDS ORDERED: METH4TAB2 PO ×2 (18:11→18:21)
[2020-05-07] MEDS ORDERED: CYCL-331 PO ×2 (18:11→18:21)
[2020-05-07 18:52] VITALS: BP 138/87
[2020-05-07] MEDS ORDERED: HYDROcodone/APAP 5/325MG 1 TAB TABLET PO ONE (19:15)
== END 2020-05-07 19:30 | disposition home or self-care (01) ==
LOC: ER 17:01
DX: M54.31 Sciatica, right side (principal); M79.604 Pain in right leg; J44.9 Chronic obstructive pulmonary disease, unspecified; F32.9 Major depressive disorder, single episode, unspecified; K86.1 Other chronic pancreatitis; M41.9 Scoliosis, unspecified; F17.200 Nicotine dependence, unspecified, uncomplicated; Z90.710 Acquired absence of both cervix and uterus; Z98.51 Tubal ligation status; Z98.890 Other specified postprocedural states; Z85.9 Personal history of malignant neoplasm, unspecified; Z88.2 Allergy status to sulfonamides
CPT/HCPCS: 96372; 99283; J1885

== ENCOUNTER 2020-05-25 19:07 | Inpatient (IN) | payer SELFPAY ==
[~2020-05-25] VITALS: Ht 162.6 cm; Wt 62.4 kg
[~2020-05-25 19:07] MED LIST changes: +CYCL-331 PO
--- NOTE | 2020-05-25 19:51 | PHYS DOC ---
Past History Past Medical History: COPD, GERD, Pancreatitis Additional Past Medical Histor: SCOLIOSIS, DDD, KYPHOSIS (LUIZA ABEBE APRN) Past Surgical History: Other Additional Past Surgical Histo: bilateral masectomy (LUIZA ABEBE APRN) Smoking: Greater than 1 pack/day Alcohol Use: None Drug Use: None (LUIZA ABEBE APRN) General Adult EDM: Chief Complaint: ABDOMINAL PAIN HPI: HPI: Patient is a 5-year-old female presents with abdominal pain. "I think I have pancreatitis, I had it before and that is what this feels like". "I drink pints of liquor a day". Patient reports nausea, diarrhea. Patient denies vomiting at this time. Patient has history of COPD, GERD. Patient denies taking anything for the pain prior to arrival. (LUIZA ABEBE APRN) Review of Systems: Review of Systems: Constitutional: Denies fever or chills Eyes: Denies change in visual acuity HENT: Denies nasal congestion or sore throat Respiratory: Denies cough or shortness of breath Cardiovascular: Denies chest pain or edema GI: Reports abdominal pain, nausea, diarrhea. denies vomiting, bloody stools : Denies dysuria Musculoskeletal: Denies back pain or joint pain Integument: Denies rash Neurologic: Denies headache, focal weakness or sensory changes Endocrine: Denies polyuria or polydipsia Lymphatic: Denies swollen glands Psychiatric: Denies depression or anxiety (LUIZA ABEBE APRN) Allergies: Allergies: Allergies Coded Allergies Type Severity Reaction Last Updated Verified Sulfa (Sulfonamide Antibiotics) Allergy Intermediate N/V hives 03/22/20 Yes (LUIZA ABEBE APRN) Physical Exam: PE: Constitutional: Well developed, well nourished, no acute distress, non-toxic appearance. [] HENT: Normocephalic, atraumatic, bilateral external ears normal, oropharynx moist, no oral exudates, nose normal. [] Eyes: PERRLA, EOMI, conjunctiva normal, no discharge. [] Neck: Normal range of motion, no tenderness, supple, no stridor. [] Cardiovascular:Heart rate regular rhythm, no murmur [] Lungs & Thorax: Bilateral breath sounds clear to auscultation [] Abdomen: Bowel sounds normal, soft, no tenderness, no masses, no pulsatile masses. [] Skin: Warm, dry, no erythema, no rash. [] Back: No tenderness, no CVA tenderness. [] Extremities: No tenderness, no cyanosis, no clubbing, ROM intact, no edema. [] Neurologic: Alert and oriented X 3, normal motor function, normal sensory function, no focal deficits noted. [] Psychologic: Affect normal, judgement normal, mood normal. [] (LUIZA ABEBE APRN) Current Patient Data: Vital Signs: Vital Signs Date Time Temp Pulse Resp B/P (MAP) Pulse Ox O2 Delivery O2 Flow Rate FiO2 05/25/20 19:25 98.0 130 16 109/92 (98) 99 Room Air (LUIZA ABEBE APRN) EKG: EKG: Sincu Tachycardia, Atrial Premature Complexes, Otherwise Normal EKG. HR 116 B PM[] (LUIZA ABEBE APRN) Radiology/Procedures: Radiology/Procedures: []CT ABDOMEN W History: abdominal pain / Spl. Instructions: / History: Comparison: 03/13/2020 Technique: After administration of intravenous contrast, helical CT of the abdomen and pelvis was performed from the lung bases through the ischial tuberosities. Coronal and sagittal reconstructions were obtained. 75 mL of Omnipaque 300 were used. One or more of the following dose reduction techniques were utilized: Automated exposure control (AEC), Adjustment of mA and/or kV according to patient size, Use of iterative reconstruction technique such as ASiR, CT scan done according to ALARA and image gently/image wisely Abdomen Findings: The visualized lung bases are clear. Liver measures 18.7 cm craniocaudad. Diffuse hepatic steatosis. Spleen and bilateral adrenal glands are normal. Haziness and fluid around the pancreatic head with pancreatic ductal dilatation measuring up to 5 mm. Hyperemia of the common bile duct wall. Coarse calcifications in the head of the pancreas increased from 03/13/2020. No organized fluid collection. Symmetric renal enhancement. There is no focal renal mass. There is no hydronephrosis. The visualized loops of small and large bowel are normal in caliber. There is no mesenteric or retroperitoneal adenopathy. The abdominal aorta is normal in caliber. IMPRESSION: 1. Haziness and fluid around the pancreatic head suggestive of acute pancreatitis. No organized fluid collection. 2. Hyperemia of the common bile duct wall, which could be reactive or potentially represent cholangitis. 3. Coarse calcifications in the head of pancreas with dilated main pancreatic duct, likely sequela of chronic pancreatitis. 4. Hepatomegaly and hepatic steatosis. Electronically signed by: Liliam Mckinley MD (05/25/2020 8:48 PM) [facility] DICTATED AND SIGNED BY: LILIAM MCKINLEY MD DATE: 05/25/202040 CC: EMERGENCY,DEPARTMENT; LUIZA ABEBE APRN; PCP,NO ~MTH0 0 (LUIZA ABEBE APRN) Radiology/Procedures: [address] [id number] IMAGING REPORT Signed PATIENT: YUNI SCHUSTER ACCOUNT: [id number] : 1965 LOCATION: ER AGE: 55 SEX: F EXAM STATUS: REG ER ORD. PHYSICIAN: LUIZA ABEBE APRN REASON: abdominal pain PROCEDURE: CT ABDOMEN W/CONTRAST CT ABDOMEN W History: abdominal pain / Spl. Instructions: / History: Comparison: 03/13/2020 Technique: After administration of intravenous contrast, helical CT of the abdomen and pelvis was performed from the lung bases through the ischial tuberosities. Coronal and sagittal reconstructions were obtained. 75 mL of Omnipaque 300 were used. One or more of the following dose reduction techniques were utilized: Automated exposure control (AEC), Adjustment of mA and/or kV according to patient size, Use of iterative reconstruction technique such as ASiR, CT scan done according to ALARA and image gently/image wisely Abdomen Findings: The visualized lung bases are clear. Liver measures 18.7 cm craniocaudad. Diffuse hepatic steatosis. Spleen and bilateral adrenal glands are normal. Haziness and fluid around the pancreatic head with pancreatic ductal dilatation measuring up to 5 mm. Hyperemia of the common bile duct wall. Coarse calcificat ions in the head of the pancreas increased from 03/13/2020. No organized fluid collection. Symmetric renal enhancement. There is no focal renal mass. There is no hydronephrosis. The visualized loops of small and large bowel are normal in caliber. There is no mesenteric or retroperitoneal adenopathy. The abdominal aorta is normal in caliber. IMPRESSION: 1. Haziness and fluid around the pancreatic head suggestive of acute pancreatitis. No organized fluid collection. 2. Hyperemia of the common bile duct wall, which could be reactive or potentially represent cholangitis. 3. Coarse calcifications in the head of pancreas with dilated main pancreatic duct, likely sequela of chronic pancreatitis. 4. Hepatomegaly and hepatic steatosis. Electronically signed by: Liliam Mckinley MD (05/25/2020 8:48 PM) [facility] DICTATED AND SIGNED BY: LILIAM MCKINLEY MD DATE: 05/25/202040 CC: EMERGENCY,DEPARTMENT; LUIZA ABEBE APRN; PCP,NO ~[facility] 0 (MARIO JIMENEZ MD) Heart Score: Risk Factors: Risk Factors: DM, Current or recent (<one month) smoker, HTN, HLP, family history of CAD, obesity. Risk Scores: Score 0 - 3: 2.5% MACE over next 6 weeks - Discharge Home Score 4 - 6: 20.3% MACE over next 6 weeks - Admit for Clinical Observation Score 7 - 10: 72.7% MACE over next 6 weeks - Early Invasive Strategies (LUIZA ABEBE APRN) Course & Med Decision Making: Course & Med Decision Making []Patient is a 5-year-old female presents with abdominal pain. "I think I have pancreatitis, I had it before and that is what this feels like". "I drink pints of liquor a day". Patient reports nausea, diarrhea. Patient denies vomiting at this time. Patient has history of COPD, GERD. Patient denies taking anything for the pain prior to arrival. CT abdomen shows acute pancreatitis, possible cholangitis. Patient had potassium of 2.8, 40meq K given. Lipase 2059, ETOH 47, MCH 38, MCV 113 . Will admit to hospitalist for inpatient stay. Morphine and Zofran given for pain and nausea (LUIZA ABEBE APRN) Dragon Disclaimer: Dragon Disclaimer: This electronic medical record was generated, in whole or in part, using a voice recognition dictation system. (LUIZA ABEBE APRN) Departure Departure: Impression: Primary Impression: Alcohol induced acute pancreatitis Qualified Codes: K85.20 - Alcohol induced acute pancreatitis without necrosis or infection Disposition: ADMITTED INPT THIS HOSP Admitting Physician: Isela Gómez (LUIZA ABEBE APRN) Condition: STABLE Referrals: PCP,NO (PCP) Dragon Disclaimer This chart was dictated in whole or in part using Voice Recognition software in a busy, high-work load, and often noisy Emergency Department environment. It may contain unintended and wholly unrecognized errors or omissions. (MARIO JIMENEZ MD) Dragon Disclaimer This chart was dictated in whole or in part using Voice Recognition software in a busy, high-work load, and often noisy Emergency Department environment. It may contain unintended and wholly unrecognized errors or omissions. (MARIO JIMENEZ MD) Attending Co-Sign Attending Co-Sign The patient was seen and interviewed as well as examined at the bedside. The chart was reviewed. The case was discussed. Agree with the plan of care. (MARIO JIMENEZ MD) Attending Signature Attending Signature I have participated in the care of this patient and I have reviewed and agree with all pertinent clinical information above including history, exam, and recommendations. (MARIO JIMENEZ MD) Attending Signature Attending Signature I have participated in the care of this patient and I have reviewed and agree with all pertinent clinical information above including history, exam, and recommendations. (MARIO JIMENEZ MD) LUIZA ABEBE APRN May 25, 2020 19:51 MARIO JIMENEZ MD May 25, 2020 21:06
[2020-05-25] MEDS ORDERED: IV NORMAL SALINE 1,000ML 1,000 ML IV ONE (20:00)
[2020-05-25] MEDS ORDERED: ONDANSETRON PF 4 MG/2 ML VIAL. IVP ONE (20:00)
[2020-05-25] MEDS ORDERED: MORPHINE SULFATE 4 MG/ML DISP.SYRIN. IV ONE ×2 (20:00→21:45)
[2020-05-25 20:08] LABS: BASO % 0 % (0-3); EOS # 0.1 x10^3/uL (0.0-0.7); EOS % 1 % (0-3); HEMATOCRIT 36.1 % (36.0-47.0); HEMOGLOBIN 12.2 g/dL (12.0-15.5); LYMPH # 2.5 x10^3/uL (1.0-4.8); LYMPH % 31 % (24-48); MEAN CORPUSCULAR HEMOGLOBIN 38 pg (25-35); MEAN CORPUSCULAR HGB CONC 34 g/dL (31-37); MEAN CORPUSCULAR VOLUME 113 fL (79-100); MONO # 0.4 x10^3/uL (0.0-1.1); MONO % 5 % (0-9); NEUT % 63 % (31-73); PLATELET COUNT 359 x10^3/uL (140-400); RED BLOOD COUNT 3.19 x10^6/uL (3.50-5.40); RED CELL DISTRIBUTION WIDTH 24.6 % (11.5-14.5)
[2020-05-25 20:15] LABS: ALBUMIN 2.9 g/dL (3.4-5.0); ALBUMIN/GLOBULIN RATIO 0.9 (1.0-1.7); CALCIUM 7.7 mg/dL (8.5-10.1); CREATININE 0.5 mg/dL (0.6-1.0); GFR 128.1; TOTAL BILIRUBIN 0.4 mg/dL (0.2-1.0); TOTAL PROTEIN 6.3 g/dL (6.4-8.2)
[2020-05-25] MEDS ORDERED: IOHEXOL 300 MG/ML 75 ML VIAL. IV ONE (20:15)
[2020-05-25 20:20] LABS: POTASSIUM 2.8 mmol/L (3.5-5.1)
--- NOTE | 2020-05-25 20:51 | RAD ---
CT ABDOMEN W History: abdominal pain / Spl. Instructions: / History: Comparison: 03/13/2020 Technique: After administration of intravenous contrast, helical CT of the abdomen and pelvis was per formed from the lung bases through the ischial tuberosities. Coronal and sagittal reconstructions wer e obtained. 75 mL of Omnipaque 300 were used. One or more of the following dose reduction techniques were utilized: Automated exposure control (AEC), Adjustment of mA and/or kV according to patient size , Use of iterative reconstruction technique such as ASiR, CT scan done according to ALARA and image g ently/image wisely Abdomen Findings: The visualized lung bases are clear. Liver measures 18.7 cm craniocaudad. Diffuse hepatic steatosis. Spleen and bilateral adrenal glands a re normal. Haziness and fluid around the pancreatic head with pancreatic ductal dilatation measuring up to 5 mm. Hyperemia of the common bile duct wall. Coarse calcifications in the head of the pancreas increased from 03/13/2020. No organized fluid collection. Symmetric renal enhancement. There is no focal renal mass. There is no hydronephrosis. The visualized loops of small and large bowel are normal in caliber. There is no mesenteric or retroperitoneal adenopathy. The abdominal aorta is normal in caliber. IMPRESSION: 1. Haziness and fluid around the pancreatic head suggestive of acute pancreatitis. No organized fluid collection. 2. Hyperemia of the common bile duct wall, which could be reactive or potentially represent cholangit is. 3. Coarse calcifications in the head of pancreas with dilated main pancreatic duct, likely sequela of chronic pancreatitis. 4. Hepatomegaly and hepatic steatosis. Electronically signed by: Castillo Mckinley MD (05/25/2020 8:48 PM) [facility]
[2020-05-25] MEDS ORDERED: ONDANSETRON PF 4 MG/2 ML VIAL. IVP PRN (21:30)
[2020-05-25] MEDS ORDERED: POTASSIUM CHLORIDE 20 MEQ TABLET.ER. PO ONE (21:30)
[2020-05-25 21:40] LABS: ANISOCYTOSIS MOD
[2020-05-25 22:15] LABS: PLT ESTIMATE ADEQUATE (ADEQUATE)
--- NOTE | 2020-05-25 22:53 | EKG ---
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
[2020-05-25 23:00] VITALS: BP 101/69
[2020-05-25] MEDS: MORPHINE SULFATE 4 MG/ML DISP.SYRIN. IVP PRN (23:25)
[2020-05-26] MEDS ORDERED: MELA3TAB43 PO (01:35)
[2020-05-26] MEDS ORDERED: IBUP400T18 PO (01:35)
[2020-05-26] MEDS ORDERED: IBUP1CAP12 PO (01:35)
--- NOTE | 2020-05-26 01:44 | NUR ---
The patient, YUNI SCHUSTER, 55 y/o, F admitted by TRISTIAN ESPANA MD, was given written information regarding hospital policies, unit procedures and contact persons. Valuables were checked and vital signs were taken. PT admitted for recurrent pancreatitis. PT with 7/10 abdominal pain on admission. PT oriented to unit. Reviewed with PT her PMH, PSH, SH, FH and medications. PT states she takes only OTC medications at this time because she is unemployed and with no insurance.
[2020-05-26] MEDS: MORPHINE SULFATE 4 MG/ML DISP.SYRIN. IVP PRN ×5 (02:00→21:25)
[2020-05-26 05:27] VITALS: BP 92/59
[2020-05-26] MEDS ORDERED: MAGNESIUM SULFATE 1GM 100 ML IV ONE (08:30)
--- NOTE | 2020-05-26 08:52 | HP ---
ADMIT DATE: 05/26/2020 ATTENDING PHYSICIAN: Dr. Quiñones. CHIEF COMPLAINT: Abdominal pain. HISTORY OF PRESENT ILLNESS: The patient is a 55-year-old female, chronic alcoholic, presented with nausea, abdominal pain, diarrhea. She drinks quite a bit on a daily basis. Blood alcohol level is 47. She has not had seizures before, recent hospitalization 3 months ago with similar pancreatitis. She also has a history of COPD and gastroesophageal reflux. In the ED, CT scan confirmed acute pancreatitis. There is no phlegmon. Her lipase level of 2059. Her potassium is also diminished and she is on replacement. PAST MEDICAL HISTORY: Significant for chronic alcoholism, major depression, anxiety, pancreatitis, gastroesophageal reflux disease and COPD. PAST SURGICAL HISTORY: Again bilateral mastectomy, surgical implant as well as tubal ligation. CURRENT MEDICINES: Hamw-mtb-brkqnem ibuprofen. ALCOHOL HISTORY: Significant every day to excess. She has had a DUI in the past. She smokes a pack of cigarettes daily. She is unemployed. FAMILY HISTORY: Mom of complications of heart disease at age 65. Father of COPD at age 71. ALLERGIES: SHE HAS ALLERGIES TO SULFA DRUGS. PRESCRIPTION CURRENT MEDICINES: None. No local physician. REVIEW OF SYSTEMS: As noted. She has seen a counselor. She has underlying depression with anxiety. She smokes. She has not had any previous seizures. She had no recent COVID exposures. All other systems reviewed and determined to be negative. The rest of detailed review of systems was determined to be negative. The patient also has a history of bilateral breast cancer with mastectomies and implant. PHYSICAL EXAMINATION: GENERAL: When I saw her, this is a sober female. INITIAL VITAL SIGNS: Showed a blood pressure of 92/59, pulse is 110 and regular, temperature 98.1 degrees Fahrenheit, oxygen saturation 97% on room air. HEENT: Head is without trauma. Pupils are reactive. Sclerae nonicteric. Oropharynx clear. NECK: Supple, no bruits or stridor. LUNGS: Otherwise clear. CARDIOVASCULAR: Showed regular heart tones. No gallops. ABDOMEN: Soft, scaphoid, nontender, no organomegaly. She has bilateral mammary implants. EXTREMITIES: Without edema. NEUROLOGIC: Focally intact. Speech is fluent. Molding Machine Setter were intact. SKIN: Warm and dry. PERTINENT LABORATORY STUDIES: Lipase was 2059. Magnesium 1.6, potassium 2.8 mEq, creatinine 0.5 mg percent. Hemoglobin 12.2 gram. The MCV is markedly elevated at 113. White count 8000. ASSESSMENT: 1. A 55-year-old female with alcoholic pancreatitis. 2. Chronic alcoholism. 3. Major depression with anxiety. 4. Chronic obstructive pulmonary disease. 5. 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 6. History of breast cancer with bilateral mastectomies. 7. Essential hypertension. PLAN: 1. Admit to the inpatient unit. 2. N.p.o. except ice chips. 3. IV hydration. 4. Pain and nausea control. 5. Potassium and magnesium replacement. 6. Serial chemistry. 7. consulting services project manager to help with getting benefits. GAB QUIÑONES MD DR: REYNALDO/mercedes JOB#: [id number] / [id number]
[2020-05-26] MEDS: NICOTINE 21MG PATCH. TD SCH (10:18)
[2020-05-26] MEDS: POTASSIUM CHLORIDE 20 MEQ TABLET.ER. PO SCH ×2 (10:18→21:24)
[2020-05-26 10:50] VITALS: BP 111/76
[2020-05-26 13:57] VITALS: BP 112/72
[2020-05-26 19:00] VITALS: BP 115/84
[2020-05-26 22:35] VITALS: BP 105/74
[2020-05-27] MEDS: MORPHINE SULFATE 4 MG/ML DISP.SYRIN. IV PRN ×2 (02:35→07:42)
[2020-05-27 05:28] VITALS: BP 117/79
[2020-05-27 06:35] LABS: CALCIUM 7.3 mg/dL (8.5-10.1); CREATININE 0.4 mg/dL (0.6-1.0); GFR 165.7; POTASSIUM 4.7 mmol/L (3.5-5.1)
[2020-05-27] MEDS: NICOTINE 21MG PATCH. TD SCH (07:33)
[2020-05-27] MEDS: POTASSIUM CHLORIDE 20 MEQ TABLET.ER. PO SCH (07:33)
--- NOTE | 2020-05-27 09:50 | NUR ---
Discharge Note: YUNI SCHUSTER J[facility] Discharge instructions and discharge home medications reviewed with Patient and a copy given. All questions have been answered and understanding verbalized. The following instructions and handouts were given: Acute Pancreatitis, Clear Liquid Diet Discontinued lines and drains: Peripheral IV intact. Patient discharged to Home or Self Care with Self via Wheelchair
--- NOTE | 2020-05-27 15:18 | DS ---
DATE OF DISCHARGE: 05/27/2020 ATTENDING PHYSICIAN: Dr. Quiñones. FINAL DISCHARGE DIAGNOSES: 1. Acute pancreatitis. 2. Chronic alcoholism. 3. Major depression. 4. Anxiety disorder. 5. Breast cancer with bilateral mastectomies. 6. Surgical implants. 7. Tubal ligation. HISTORY AND PHYSICAL: The patient is a 55-year-old female with underlying depression and anxiety. She continues to drink to excess. She is also a smoker. She presented with nausea, abdominal pain and evidence of pancreatitis. PHYSICAL EXAMINATION: Please see the dictated note. PERTINENT LABORATORY AND X-RAY STUDIES: Initial hemoglobin was 12.2 g/dL with white count of 8000. Potassium was 2.8 mEq, replaced with magnesium and potassium up to 4.7 mEq on the second hospital day. The lipase level was 2148, creatinine 0.4 mg/dL. CT abdomen done on admission showed fluid around the pancreatic head, suggesting acute pancreatitis. No pseudocyst or phlegmon identified. There is coarse calcification. She also had hepatomegaly and hepatic steatosis. COURSE IN THE HOSPITAL: The patient was admitted. She was made n.p.o. Diet was eventually advanced. Potassium replaced. Pain and nausea was managed. By the third hospital day, her vital signs were quite stable. She was sober. No withdrawal seizures. Blood pressure was 117/80, pulse was about 100 per minute when I saw her, oxygen saturation 93% on room air, temperature 98.2 degrees Fahrenheit. I did check her pulse personally, it was around between 90 and 100. Her abdomen was soft and her vital signs are stable. Therefore, I recommend that she is stable for discharge. I recommended Xanax 0.5 mg b.i.d. I also recommended a Percocet 10/325 one every 6 hours p.r.n. pain, #30 with no refills. Strong encouragement to avoid further alcohol and tobacco use and to treat her underlying depression with anxiety. She has a counseling session set up. She needs to find a PCP. Whether or not she will quit drinking or smoking, remains to be seen. The patient was then discharged from our hospital in stable condition with explicit instructions and followup care. GAB QUIÑONES MD DR: REYNALDO/mercedes JOB#: [id number] / [id number]
== END 2020-05-27 09:50 | disposition home or self-care (01) | DRG 440 ==
LOC: ER 19:07 → 1 SOUTH 22:29
PROVIDERS: ADMIT Internal Medicine; ATTEND Internal Medicine
DX: K85.20 Alcohol induced acute pancreatitis without necrosis or infection (principal); C50.919 Malignant neoplasm of unspecified site of unspecified female breast; F10.20 Alcohol dependence, uncomplicated; F17.200 Nicotine dependence, unspecified, uncomplicated; F41.8 Other specified anxiety disorders; I10 Essential (primary) hypertension; J44.9 Chronic obstructive pulmonary disease, unspecified; M41.9 Scoliosis, unspecified; Y90.2 Blood alcohol level of 40-59 mg/100 ml; Z82.5 Family history of asthma and other chronic lower respiratory diseases; Z85.3 Personal history of malignant neoplasm of breast; Z90.13 Acquired absence of bilateral breasts and nipples; K21.9 Gastro-esophageal reflux disease without esophagitis; Z88.2 Allergy status to sulfonamides; Z98.51 Tubal ligation status
CPT/HCPCS: 36415; 74160; 80048; 80053; 83690; 83735; 85025; 93005; 96361; 96374; 96375; 96376; G0480; J2270; J2405; J3475; Q9967; 99285-25; J7030

== ENCOUNTER 2020-07-15 16:45 | Emergency (ER) | payer SELFPAY ==
[~2020-07-15] VITALS: Ht 170.2 cm; Wt 60.0 kg
[~2020-07-15 16:45] MED LIST changes: +IBUP1CAP12 PO; +IBUP400T18 PO; +MELA3TAB43 PO
--- NOTE | 2020-07-15 18:34 | EKG ---
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
[2020-07-15] MEDS ORDERED: MORPHINE SULFATE 4 MG/ML DISP.SYRIN. IV ONE ×2 (18:45→21:30)
[2020-07-15] MEDS ORDERED: IV RINGERS SOLUTION,LACTATED 1,000 ML IV ONE ×2 (18:45→20:45)
[2020-07-15] MEDS ORDERED: ONDANSETRON PF 4 MG/2 ML VIAL. IVP ONE ×2 (18:45→22:15)
[2020-07-15] MEDS ORDERED: IOHEXOL 300 MG/ML 75 ML VIAL. IV ONE (19:15)
[2020-07-15 19:47] LABS: BASO # 0.1 x10^3/uL (0.0-0.2); BASO % 1 % (0-3); EOS # 0.1 x10^3/uL (0.0-0.7); EOS % 1 % (0-3); HEMATOCRIT 40.2 % (36.0-47.0); HEMOGLOBIN 13.5 g/dL (12.0-15.5); LYMPH % 22 % (24-48); MEAN CORPUSCULAR HEMOGLOBIN 40 pg (25-35); MEAN CORPUSCULAR HGB CONC 34 g/dL (31-37); MEAN CORPUSCULAR VOLUME 119 fL (79-100); MONO # 0.4 x10^3/uL (0.0-1.1); MONO % 5 % (0-9); NEUT # 6.8 x10^3uL (1.8-7.7); NEUT % 73 % (31-73); PLATELET COUNT 350 x10^3/uL (140-400); RED BLOOD COUNT 3.39 x10^6/uL (3.50-5.40); WHITE BLOOD COUNT 9.4 x10^3/uL (4.0-11.0)
[2020-07-15 19:53] LABS: ALBUMIN 3.4 g/dL (3.4-5.0); ALBUMIN/GLOBULIN RATIO 0.9 (1.0-1.7); CALCIUM 8.6 mg/dL (8.5-10.1); CREATININE 0.5 mg/dL (0.6-1.0); GFR 128.1; TOTAL BILIRUBIN 1.5 mg/dL (0.2-1.0)
--- NOTE | 2020-07-15 20:09 | RAD ---
CT abdomen and pelvis with contrast PQRS statement: CT scans at this facility use dose reduction including either automated exposure cont rol, iterative reconstructions, and /or weight based radiation dosing via mA and kV modification when appropriate to reduce radiation dose to as low as reasonably achievable. Contrast: 75 mL of opaque 300 intravenous contrast. HISTORY: Epigastric abdominal pain. Abdomen findings: Comparison is made to CT abdomen May 25, 2020. Pulmonary emphysema lung bases. M ild disc bulges lumbar spine and lumbar scoliosis. Markedly hypodense liver likely advanced steatosis . Focal fatty sparing gallbladder fossa the liver. Kidneys, adrenals, spleen and gallbladder are unre markable. Calcinosis of the head of pancreas again demonstrated. The edema has decreased since the pr ior exam however there is mild residual or recurrent edema of the pancreas and of the surrounding ryan cending and transverse duodenum. Pancreatic ductal dilation at the body and tail again demonstrated w ith a duct diameter 4 mm, the duct cutoff of the head of pancreas similar the prior exam which could be due to a stricture from inflammation or due to a ill-defined mass at the head of the pancreas. No biliary ductal dilation. The biliary ductal enhancement on the prior exam has since resolved. Patent contrast enhancement of the superior mesenteric, splenic and portal veins. There is mild wall thicken ing of the duodenum and jejunum upper abdomen likely enteritis. There is also thickened wall enhancem ent of the jejunum at the lower abdomen and proximal ileum likely enteritis. This is new. Appendix is normal with a diameter of 5 mm, no appendicitis, mild pelvic fluid surrounds a portion of the append ix which is low-lying in the pelvis adjacent of the adnexa. Pelvis findings: Small volume of free fluid at cul-de-sac and above the right adnexa obscuring right ovary as well as mildly obscuring the distal appendix. Uterus, left ovary, bladder, and bones are unr emarkable. Rectosigmoid mild wall thickening. IMPRESSION: 1. Acute pancreatitis at the head of the pancreas with mild enlargement and surrounding edema. There is cut off of the pancreatic duct at the head of the pancreas, the duct is mildly dilated at the body and tail of the pancreas, consistent with a stricture, which could be due to an inflammatory strictu re from pancreatitis, or a malignant stricture due to a ill-defined mass obscured by the inflammation at the head of the pancreas. 2. Enteritis with inflammatory wall thickening of the duodenum, proximal jejunum and distal jejunum/p roximal ileum at the upper and lower abdomen. There is also mild wall thickening of the cecum and rec tosigmoid which could be due to muscle spasm or low-grade colitis. No bowel obstruction. 3. Appendix is negative. 4. Other incidental findings as described above. Electronically signed by: Farhan Yates MD (07/15/2020 8:06 PM) [facility]
[2020-07-15 20:10] LABS: POTASSIUM 2.5 mmol/L (3.5-5.1)
--- NOTE | 2020-07-15 20:56 | PHYS DOC ---
Past History Past Medical History: COPD, GERD, Pancreatitis Additional Past Medical Histor: SCOLIOSIS, DDD, KYPHOSIS Past Surgical History: Other Additional Past Surgical Histo: bilateral masectomy Smoking: Greater than 1 pack/day Alcohol Use: Occasionally Drug Use: None Adult General Chief Complaint Chief Complaint: ABDOMINAL PAIN HPI HPI Patient is a 55-year-old female with a past medical history significant for COPD and alcoholic pancreatitis who presents with a chief complaint of epigastric pain. States it started earlier today, intermittently, 8 out of 10, sharp in nature associated with nausea and vomiting. States that her last drink was last night, drinks about a pint a day. States she has never had alcohol withdrawal issues that she is aware of and or seizures. Denies any recent travel, illnesses, fevers, chest pain, shortness of breath, dysuria, hematuria, blood in the stool or diarrhea. Review of Systems Review of Systems Review of systems otherwise unremarkable except noted in HPI Current Medications Current Medications Current Medications Medications (Trade) Dose Ordered Sig/Travis Start Time Stop Time Status Last Admin Dose Admin Iohexol (Omnipaque 300 Mg/ml) 75 ml 1X ONCE 07/15/20 19:15 07/15/20 19:20 DC 07/15/20 19:31 75 ML Lactated Ringer's 1,000 ml @ 1,000 mls/hr 1X ONCE 07/15/20 18:45 07/15/20 19:44 DC 07/15/20 19:55 1,000 MLS/HR Morphine Sulfate (Morphine 4mg Syringe) 4 mg 1X ONCE 07/15/20 18:45 07/15/20 18:46 DC 07/15/20 19:57 4 MG Ondansetron HCl (Zofran) 4 mg 1X ONCE 07/15/20 18:45 07/15/20 18:46 DC 07/15/20 19:56 4 MG Allergies Allergies Allergies Coded Allergies Type Severity Reaction Last Updated Verified Sulfa (Sulfonamide Antibiotics) Allergy Intermediate N/V hives 03/22/20 Yes Physical Exam Physical Exam Constitutional: Well developed, well nourished, no acute distress, non-toxic appearance. [] HENT: Normocephalic, atraumatic, bilateral external ears normal, oropharynx moist, no oral exudates, nose normal. [] Eyes: conjunctiva normal, no discharge. [] Neck: Normal range of motion, no tenderness, supple, no stridor. [] Cardiovascular: Tachycardia, no murmur Lungs & Thorax: Bilateral breath sounds clear to auscultation [] Abdomen: soft, epigastric tenderness, no masses, no pulsatile masses. [] Skin: Warm, dry, no erythema, no rash. [] Back: No tenderness, no CVA tenderness. [] Extremities: No tenderness, no cyanosis, no clubbing, ROM intact, no edema. [] Neurologic: Alert and oriented X 3, normal motor function, normal sensory function, no focal deficits noted. [] Psychologic: Affect normal, judgement normal, mood normal. [] Current Patient Data Vital Signs Vital Signs Date Time Temp Pulse Resp B/P (MAP) Pulse Ox O2 Delivery O2 Flow Rate FiO2 07/15/20 19:57 98 Room Air 07/15/20 16:58 97.9 134 20 124/103 (110) Lab Results Laboratory Tests Test 07/15/20 19:10 White Blood Count 9.4 x10^3/uL (4.0-11.0) Red Blood Count 3.39 x10^6/uL (3.50-5.40) L Hemoglobin 13.5 g/dL (12.0-15.5) Hematocrit 40.2 % (36.0-47.0) Mean Corpuscular Volume 119 fL (79-100) H Mean Corpuscular Hemoglobin 40 pg (25-35) H Mean Corpuscular Hemoglobin Concent 34 g/dL (31-37) Red Cell Distribution Width 20.0 % (11.5-14.5) H Platelet Count 350 x10^3/uL (140-400) Neutrophils (%) (Auto) 73 % (31-73) Lymphocytes (%) (Auto) 22 % (24-48) L Monocytes (%) (Auto) 5 % (0-9) Eosinophils (%) (Auto) 1 % (0-3) Basophils (%) (Auto) 1 % (0-3) Neutrophils # (Auto) 6.8 x10^3uL (1.8-7.7) Lymphocytes # (Auto) 2.0 x10^3/uL (1.0-4.8) Monocytes # (Auto) 0.4 x10^3/uL (0.0-1.1) Eosinophils # (Auto) 0.1 x10^3/uL (0.0-0.7) Basophils # (Auto) 0.1 x10^3/uL (0.0-0.2) Platelet Estimate Pending Sodium Level 147 mmol/L (136-145) H Potassium Level 2.5 mmol/L (3.5-5.1) *L Chloride Level 105 mmol/L (98-107) Carbon Dioxide Level 28 mmol/L (21-32) Anion Gap 14 (6-14) Blood Urea Nitrogen 12 mg/dL (7-20) Creatinine 0.5 mg/dL (0.6-1.0) L Estimated GFR (Cockcroft-Gault) 128.1 BUN/Creatinine Ratio 24 (6-20) H Glucose Level 99 mg/dL (70-99) Calcium Level 8.6 mg/dL (8.5-10.1) Total Bilirubin 1.5 mg/dL (0.2-1.0) H Aspartate Amino Transferase (AST) 73 U/L (15-37) H Alanine Aminotransferase (ALT) 42 U/L (14-59) Alkaline Phosphatase 165 U/L (46-116) H Total Protein 7.0 g/dL (6.4-8.2) Albumin 3.4 g/dL (3.4-5.0) Albumin/Globulin Ratio 0.9 (1.0-1.7) L Lipase 416 U/L (73-393) H EKG EKG [] Radiology/Procedures Radiology/Procedures []MPRESSION: 1. Acute pancreatitis at the head of the pancreas with mild enlargement and surrounding edema. There is cut off of the pancreatic duct at the head of the pancreas, the duct is mildly dilated at the body and tail of the pancreas, consistent with a stricture, which could be due to an inflammatory stricture from pancreatitis, or a malignant stricture due to a ill-defined mass obscured by the inflammation at the head of the pancreas. 2. Enteritis with inflammatory wall thickening of the duodenum, proximal jejunum and distal jejunum/proximal ileum at the upper and lower abdomen. There is also mild wall thickening of the cecum and rectosigmoid which could be due to muscle spasm or low-grade colitis. No bowel obstruction. 3. Appendix is negative. 4. Other incidental findings as described above. Heart Score Risk Factors: Risk Factors: DM, Current or recent (<one month) smoker, HTN, HLP, family history of CAD, obesity. Risk Scores: Risk Factors: DM, Current or recent (<one month) smoker, HTN, HLP, family history of CAD, obesity. Course & Med Decision Making Course & Med Decision Making Patient is a 55-year-old female who presents to the emergency department with epigastric pain, nausea and vomiting for day Vital signs notable for tachycardia. Physical exam noted above. Patient given Zofran for nausea, morphine for pain, and made n.p.o. Vital signs notable for hypokalemia, and potassium replaced in the ED. CT noted above, and remarkable for acute pancreatitis with enteritis/colitis. Patient continued on IV fluid resuscitation and n.p.o. status. Given first dose of antibiotics in the ED. Discussed findings with family and advised admission to the hospital. Family grateful, verbalized understanding and agreed with plan of admission. [] Dragon Disclaimer Dragon Disclaimer This electronic medical record was generated, in whole or in part, using a voice recognition dictation system. Departure Departure: Impression: Primary Impression: Alcohol induced acute pancreatitis Additional Impressions: Enteritis Colitis Disposition: ADMITTED INPT THIS HOSP (0) Admitting Physician: Isela Gómez Condition: STABLE Referrals: PCP,NO (PCP) Problem Qualifiers CANDIDA JACOBS MD Jul 15, 2020 20:56
[2020-07-15] MEDS ORDERED: IV NORMAL SALINE 50ML 50 ML ONE (20:57)
[2020-07-15] MEDS ORDERED: cefTRIAXone SODIUM 1 GM VIAL ONE (20:57)
[2020-07-15 21:22] LABS: ANISOCYTOSIS SLIGHT; PLT ESTIMATE ADEQUATE (ADEQUATE); SPHEROCYTES OCC; STOMATOCYTES MOD; TEAR DROP CELLS OCC
[2020-07-15] MEDS ORDERED: POTASSIUM CHLORIDE 20MEQ 100 ML IV SCH (21:30)
[2020-07-15] MEDS: POTASSIUM CHLORIDE 10MEQ 100 ML IV SCH ×2 (21:45→22:40)
[2020-07-15 22:20] LABS: BACTERIA,URINE 0 /HPF (0-FEW); BILIRUBIN,URINE NEG (NEG); CLARITY,URINE HAZY; COLOR,URINE YELLOW; GLUCOSE,URINE NEG (NEG); NITRITE,URINE NEG (NEG); RBC,URINE 0 /HPF (0-2); SQUAMOUS EPITHELIAL CELL,UR FEW /LPF; UROBILINOGEN,URINE 0.2 mg/dL (0.2 mg/dL); WBC,URINE 0 /HPF (0-4)
[2020-07-16 01:34] VITALS: BP 118/86
== END 2020-07-16 01:20 | disposition short-term general hospital (02) ==
LOC: ER 16:45
DX: K85.20 Alcohol induced acute pancreatitis without necrosis or infection (principal); K52.9 Noninfective gastroenteritis and colitis, unspecified; K21.9 Gastro-esophageal reflux disease without esophagitis; J44.9 Chronic obstructive pulmonary disease, unspecified; F17.200 Nicotine dependence, unspecified, uncomplicated; Z88.2 Allergy status to sulfonamides
CPT/HCPCS: 36415; 74177; 80053; 81001; 81025; 83690; 85025; 93005; 96361; 96365; 96366; 96367; 96368; 96375; 96376; 99285; J0696; J2270; J2405; J3480; J3490; J7120; Q9967

== ENCOUNTER 2020-09-04 07:48 | Emergency (ER) | payer SELFPAY ==
[~2020-09-04] VITALS: Ht 170.2 cm; Wt 60.0 kg
--- NOTE | 2020-09-04 08:12 | PHYS DOC ---
Past History Past Medical History: COPD, GERD, Pancreatitis Additional Past Medical Histor: SCOLIOSIS, DDD, KYPHOSIS Past Surgical History: Other Additional Past Surgical Histo: bilateral masectomy Smoking: Greater than 1 pack/day Alcohol Use: Heavy Drug Use: None General Adult EDM: Chief Complaint: ABDOMINAL PAIN HPI: HPI: Patient is a 55-year-old female coming in for epigastric abdominal pain, vomiting, diarrhea started yesterday morning. States she drinks 2 days ago. Has a history of recurrent pancreatitis secondary to alcohol use. Patient states usually does not get diarrhea with her pancreatitis episodes. States he is not able tolerate water. Denies any fevers or cough. Denies any bloody or bilious vomit. Denies any dark or bloody stools. Review of Systems: Review of Systems: All other systems within normal limits except for as noted in the HPI Allergies: Allergies: Allergies Coded Allergies Type Severity Reaction Last Updated Verified Sulfa (Sulfonamide Antibiotics) Allergy Intermediate N/V hives 03/22/20 Yes Physical Exam: PE: Constitutional: Well developed, well nourished, no acute distress, non-toxic appearance. [] HENT: Normocephalic, atraumatic, bilateral external ears normal, nose normal. [] Eyes: PERRLA, conjunctiva normal, no discharge. [] Neck: No rigidity, supple, no stridor. [] Cardiovascular: Regular rate and rhythm, brisk cap refill [] Lungs & Thorax: Non labored symmetric respirations, no tachypnea or respiratory distress [] Abdomen: Soft, nondistended epigastric tenderness, negative Church sign.. Skin: Warm, dry, no erythema, no rash. [] Back: Unremarkable Extremities: No deformities, range of motion grossly intact, no lower extremity edema [] Neurologic: Alert and oriented X 3, no focal deficits noted. [] Psychologic: Affect normal, judgement normal, mood normal. [] EKG: EKG: Sinus tachycardia with heart rate of 119 bpm, normal axis. No ST elevation depression, borderline QT prolongation. [] Radiology/Procedures: Radiology/Procedures: CT ABDOMEN+PELVIS W History: Reason: abd pain, vomiting / Spl. Instructions: / History: Technique: After the administration of intravenous contrast, CT imaging was performed of the abdomen and pelvis. Multiplanar images are reviewed. Exposure: One or more of the following individualized dose reduction techniques were utilized for this examination: 1. Automated exposure control 2. Adjustment of the mA and/or kV according to patient size 3. Use of iterative reconstruction technique. Comparison: July 15, 2020 Findings: Lower chest: No consolidation or pleural effusion. Bilateral breast implants. Abdomen and pelvis: Hepatic steatosis. The spleen, adrenal glands, and gallbladder are unremarkable. Unremarkable appearance of the kidneys. No hydronephrosis. Decompressed urinary bladder. Pancreatic atrophy most prominent within the pancreatic body. Pancreatic head calcifications. Mild pancreatic ductal dilatation, decreased compared to prior. Slight peripancreatic inflammation adjacent to the pancreatic tail No peripancreatic fluid collection. Regions of the colon are decompressed. Normal appendix. No evidence of bowel obstruction. No pathologic lymphadenopathy. No ascites. Uterus and ovaries are unremarkable. Atheromatous plaque throughout the nonaneurysmal abdominal aorta and branch vessels. Bones: Leftward curvature of the thoracolumbar spine. Mild multilevel lumbar spondylosis. Moderate left hip DJD. Impression: 1. Mild acute on chronic pancreatitis with inflammatory changes adjacent to the pancreatic tail. 2. Decreased pancreatic ductal dilatation compared to prior. [] Heart Score: C/O Chest Pain: No Risk Factors: Risk Factors: DM, Current or recent (<one month) smoker, HTN, HLP, family history of CAD, obesity. Risk Scores: Score 0 - 3: 2.5% MACE over next 6 weeks - Discharge Home Score 4 - 6: 20.3% MACE over next 6 weeks - Admit for Clinical Observation Score 7 - 10: 72.7% MACE over next 6 weeks - Early Invasive Strategies Course & Med Decision Making: Course & Med Decision Making Pertinent Labs and Imaging studies reviewed. (See chart for details) [] Conrad Disclaimer: Conrad Disclaimer: This electronic medical record was generated, in whole or in part, using a voice recognition dictation system. Departure Departure: Impression: Primary Impression: Acute on chronic pancreatitis Disposition: HOME / SELF CARE / HOMELESS Condition: STABLE Referrals: PCP,NO (PCP) Patient Instructions: Acute Pancreatitis, [id number]-[id number], Clear Liquid Diet Additional Instructions: Return to emergency department if spiking fevers, unable to control pain or vomiting. Or if if you have any black tarry stools, bruising on abdomen, or other signs of intestinal bleeding. Scripts Hydrocodone Bit/Acetaminophen (HYDROCODONE-APAP 5-325 ) 1 Each Tablet 1-2 TAB PO PRN Q6HRS PRN for PAIN for 5 Days, #25 TAB 0 Refills Prov: SHANKAR MONAE MD 09/04/20 Ondansetron (ONDANSETRON ODT) 4 Mg Tab.rapdis 1 TAB PO PRN Q6-8HRS PRN for NAUSEA, #16 TAB Prov: SHANKAR MONAE MD 09/04/20 SHANKAR MONAE MD Sep 04, 2020 08:12
[2020-09-04] MEDS ORDERED: ONDANSETRON PF 4 MG/2 ML VIAL. IVP ONE (08:15)
[2020-09-04] MEDS ORDERED: IOHEXOL 300 MG/ML 75 ML VIAL. IV ONE ×2 (08:15)
[2020-09-04] MEDS ORDERED: IV NORMAL SALINE 1,000ML 1,000 ML IV ONE (08:15)
[2020-09-04] MEDS ORDERED: CONTRAST GIVEN. MC PRN (08:30)
[2020-09-04 08:46] LABS: BASO # 0.1 x10^3/uL (0.0-0.2); BASO % 1 % (0-3); EOS % 0 % (0-3); HEMATOCRIT 46.2 % (36.0-47.0); HEMOGLOBIN 15.3 g/dL (12.0-15.5); LYMPH # 1.8 x10^3/uL (1.0-4.8); LYMPH % 17 % (24-48); MEAN CORPUSCULAR HEMOGLOBIN 37 pg (25-35); MEAN CORPUSCULAR HGB CONC 33 g/dL (31-37); MEAN CORPUSCULAR VOLUME 111 fL (79-100); MONO # 0.8 x10^3/uL (0.0-1.1); MONO % 8 % (0-9); NEUT # 8.1 x10^3uL (1.8-7.7); NEUT % 75 % (31-73); PLATELET COUNT 406 x10^3/uL (140-400); RED BLOOD COUNT 4.17 x10^6/uL (3.50-5.40); RED CELL DISTRIBUTION WIDTH 16.3 % (11.5-14.5); WHITE BLOOD COUNT 10.8 x10^3/uL (4.0-11.0)
[2020-09-04 08:59] LABS: CALCIUM 9.2 mg/dL (8.5-10.1); CREATININE 0.8 mg/dL (0.6-1.0); GFR 74.5; POTASSIUM 3.7 mmol/L (3.5-5.1)
[2020-09-04 09:05] LABS: ALBUMIN 3.7 g/dL (3.4-5.0); TOTAL PROTEIN 7.5 g/dL (6.4-8.2)
--- NOTE | 2020-09-04 09:07 | RAD ---
CT ABDOMEN+PELVIS W History: Reason: abd pain, vomiting / Spl. Instructions: / History: Technique: After the administration of intravenous contrast, CT imaging was performed of the abdomen and pelvis. Multiplanar images are reviewed. Exposure: One or more of the following individualized dose reduction techniques were utilized for thi s examination: 1. Automated exposure control 2. Adjustment of the mA and/or kV according to patient size 3. Use of iterative reconstruction technique. Comparison: July 15, 2020 Findings: Lower chest: No consolidation or pleural effusion. Bilateral breast implants. Abdomen and pelvis: Hepatic steatosis. The spleen, adrenal glands, and gallbladder are unremarkable. Unremarkable appearance of the kidneys. No hydronephrosis. Decompressed urinary bladder. Pancreatic atrophy most prominent within the pancreatic body. Pancreatic head calcifications. Mild pa ncreatic ductal dilatation, decreased compared to prior. Slight peripancreatic inflammation adjacent to the pancreatic tail No peripancreatic fluid collection. Regions of the colon are decompressed. Normal appendix. No evidence of bowel obstruction. No patholog ic lymphadenopathy. No ascites. Uterus and ovaries are unremarkable. Atheromatous plaque throughout t he nonaneurysmal abdominal aorta and branch vessels. Bones: Leftward curvature of the thoracolumbar spine. Mild multilevel lumbar spondylosis. Moderate le ft hip DJD. Impression: 1. Mild acute on chronic pancreatitis with inflammatory changes adjacent to the pancreatic tail. 2. Decreased pancreatic ductal dilatation compared to prior. Electronically signed by: Javier Zaragoza DO (09/04/2020 9:04 AM) [facility]
[2020-09-04] MEDS ORDERED: MORPHINE SULFATE 4 MG/ML DISP.SYRIN. IV ONE (10:00)
[2020-09-04] MEDS ORDERED: IV NORMAL SALINE 500ML 500 ML IV ONE (10:00)
[2020-09-04 10:10] VITALS: BP 145/72
[2020-09-04] MEDS ORDERED: ONDA4TAB12 PO (10:12)
[2020-09-04] MEDS ORDERED: HYDR-2155 PO (10:12)
[2020-09-04] MEDS ORDERED: HYDROcodone/APAP 5/325MG 1 TAB TABLET PO ONE (10:45)
[2020-09-04 13:48] LABS: PLT ESTIMATE ADEQUATE (ADEQUATE)
--- NOTE | 2020-09-04 21:59 | EKG ---
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
== END 2020-09-04 10:57 | disposition home or self-care (01) ==
LOC: ER 07:48
DX: K86.1 Other chronic pancreatitis (principal); J44.9 Chronic obstructive pulmonary disease, unspecified; K21.9 Gastro-esophageal reflux disease without esophagitis; F10.20 Alcohol dependence, uncomplicated; Z87.891 Personal history of nicotine dependence; Z88.2 Allergy status to sulfonamides; Y90.0 Blood alcohol level of less than 20 mg/100 ml
CPT/HCPCS: 36415; 74177; 80053; 83605; 83690; 83874; 84484; 85025; 93005; 96361; 96374; 96375; 96376; 99285; G0480; J2270; J2405; J3010; J7030; J7040; Q9967

== ENCOUNTER 2020-09-17 15:51 | Inpatient (IN) | payer SELFPAY ==
[~2020-09-17] VITALS: Ht 170.2 cm; Wt 60.7 kg
[~2020-09-17 15:51] MED LIST changes: +HYDR-2155 PO; +ONDA4TAB12 PO
--- NOTE | 2020-09-17 16:10 | PHYS DOC ---
Past History Past Medical History: COPD, GERD, Pancreatitis Additional Past Medical Histor: SCOLIOSIS, DDD, KYPHOSIS Past Surgical History: Other Additional Past Surgical Histo: bilateral masectomy Smoking: Greater than 1 pack/day Alcohol Use: Heavy Drug Use: None General Adult EDM: Chief Complaint: ABDOMINAL PAIN HPI: HPI: Patient is a 55-year-old female coming to emergency department for abdominal pain, vomiting. Patient has a history of recurrent pancreatitis. Patient states she drank alcohol heavily yesterday. Patient states she intermittently drinks but when she does she drinks heavily. Denies any daily drinking. Denies any drug use. Patient denies any diarrhea constipation. Patient states that pain is the same as her pancreatitis pain. Last summer she was able to be treated outpatient and states she got completely better. Review of Systems: Review of Systems: All other systems within normal limits except for as noted in the HPI Allergies: Allergies: Allergies Coded Allergies Type Severity Reaction Last Updated Verified Sulfa (Sulfonamide Antibiotics) Allergy Intermediate N/V hives 03/22/20 Yes Physical Exam: PE: Constitutional: Well developed, well nourished, no acute distress, non-toxic appearance. [] HENT: Normocephalic, atraumatic, bilateral external ears normal, nose normal. [] Eyes: PERRLA, conjunctiva normal, no discharge. [] Neck: No rigidity, supple, no stridor. [] Cardiovascular: Cardiac, regular rhythm, brisk cap refill [] Lungs & Thorax: Non labored symmetric respirations, no tachypnea or respiratory distress [] Abdomen: Soft, nondistended, epigastric tenderness without guarding or rebound.. Skin: Warm, dry, no erythema, no rash. [] Back: Unremarkable Extremities: No deformities, range of motion grossly intact, no lower extremity edema [] Neurologic: Alert and oriented X 3, no focal deficits noted. [] Psychologic: Affect normal, judgement normal, mood normal. [] EKG: EKG: Sinus tachycardia with heart rate of 1 13 bpm, normal axis, no ST elevation or depression, no ectopy, borderline QT prolongation [] Radiology/Procedures: Radiology/Procedures: Exam: Acute abdominal series INDICATION: Abdominal pain TECHNIQUE: Frontal view of the chest with upright and supine views of the abdomen Comparisons: None FINDINGS: The cardiomediastinal silhouette and pulmonary vessels are within normal limits. The lung and pleural spaces are clear. Air and stool are noted throughout the colon to level the rectum in a nonobstructive bowel gas pattern. No suspicious masses or calcifications. Visualized osseous structures are unremarkable. IMPRESSION: 1. No acute cardiopulmonary process. 2. Nonobstructive bowel gas pattern. [] Heart Score: C/O Chest Pain: No Risk Factors: Risk Factors: DM, Current or recent (<one month) smoker, HTN, HLP, family history of CAD, obesity. Risk Scores: Score 0 - 3: 2.5% MACE over next 6 weeks - Discharge Home Score 4 - 6: 20.3% MACE over next 6 weeks - Admit for Clinical Observation Score 7 - 10: 72.7% MACE over next 6 weeks - Early Invasive Strategies Course & Med Decision Making: Course & Med Decision Making Pertinent Labs and Imaging studies reviewed. (See chart for details) Admit for acute on chronic pancreatitis [] Dragon Disclaimer: Dragon Disclaimer: This electronic medical record was generated, in whole or in part, using a voice recognition dictation system. Departure Departure: Referrals: PCP,SARTHAK (PCP) SHANKAR MONAE MD Sep 17, 2020 16:10
[2020-09-17] MEDS ORDERED: ONDANSETRON PF 4 MG/2 ML VIAL. IVP ONE (16:15)
[2020-09-17] MEDS ORDERED: IV RINGERS SOLUTION,LACTATED 1,000 ML IV ONE (16:15)
[2020-09-17] MEDS ORDERED: MORPHINE SULFATE 4 MG/ML DISP.SYRIN. IV ONE (16:15)
[2020-09-17 16:38] LABS: BASO # 0.1 x10^3/uL (0.0-0.2); BASO % 1 % (0-3); EOS % 0 % (0-3); HEMATOCRIT 42.2 % (36.0-47.0); HEMOGLOBIN 14.2 g/dL (12.0-15.5); LYMPH # 1.3 x10^3/uL (1.0-4.8); LYMPH % 19 % (24-48); MEAN CORPUSCULAR HEMOGLOBIN 37 pg (25-35); MEAN CORPUSCULAR HGB CONC 34 g/dL (31-37); MEAN CORPUSCULAR VOLUME 108 fL (79-100); MONO # 0.5 x10^3/uL (0.0-1.1); MONO % 8 % (0-9); NEUT # 5.1 x10^3uL (1.8-7.7); NEUT % 73 % (31-73); PLATELET COUNT 308 x10^3/uL (140-400); RED BLOOD COUNT 3.91 x10^6/uL (3.50-5.40); WHITE BLOOD COUNT 7.1 x10^3/uL (4.0-11.0)
--- NOTE | 2020-09-17 16:42 | RAD ---
Exam: Acute abdominal series INDICATION: Abdominal pain TECHNIQUE: Frontal view of the chest with upright and supine views of the abdomen Comparisons: None FINDINGS: The cardiomediastinal silhouette and pulmonary vessels are within normal limits. The lung and pleural spaces are clear. Air and stool are noted throughout the colon to level the rectum in a nonobstructive bowel gas patter n. No suspicious masses or calcifications. Visualized osseous structures are unremarkable. IMPRESSION: 1. No acute cardiopulmonary process. 2. Nonobstructive bowel gas pattern. Electronically signed by: Janette Delgado MD (09/17/2020 4:40 PM) SHAYY
[2020-09-17 16:48] LABS: BILIRUBIN,URINE SMALL (NEG); CLARITY,URINE CLEAR; COLOR,URINE YELLOW; GLUCOSE,URINE NEG (NEG)
[2020-09-17 16:49] LABS: BACTERIA,URINE FEW /HPF (0-FEW); NITRITE,URINE NEG (NEG); RBC,URINE OCC /HPF (0-2); SQUAMOUS EPITHELIAL CELL,UR MOD /LPF
[2020-09-17 16:51] LABS: CALCIUM 8.4 mg/dL (8.5-10.1); CREATININE 0.8 mg/dL (0.6-1.0); GFR 74.5; POTASSIUM 3.3 mmol/L (3.5-5.1)
[2020-09-17 16:56] LABS: ALBUMIN 3.7 g/dL (3.4-5.0); ALBUMIN/GLOBULIN RATIO 1.1 (1.0-1.7); BARBITURATES NEG (NEG); BENZODIAZEPINES NEG (NEG); CANNABINOIDS NEG (NEG); COCAINE NEG (NEG); MAGNESIUM 1.5 mg/dL (1.8-2.4); METHADONE NEG (NEG); OPIATES NEG (NEG); PHENCYCLIDINE NEG (NEG); PHOSPHORUS 4.4 mg/dL (2.6-4.7); TOTAL BILIRUBIN 0.7 mg/dL (0.2-1.0)
[2020-09-17 16:59] LABS: AMPHETAMINE/METHAMPHETAMINE NEG (NEG)
[2020-09-17] MEDS ORDERED: MORPHINE SULFATE 10 MG/ML SYRINGE. IV ONE (17:30)
--- NOTE | 2020-09-17 17:40 | EKG ---
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
[2020-09-17] MEDS ORDERED: ACETAMINOPHEN 325 MG TABLET PO PRN (18:15)
[2020-09-17] MEDS ORDERED: MAGNESIUM SULFATE 1GM 100 ML IV ONE (19:30)
[2020-09-17] MEDS ORDERED: POTASSIUM CHLORIDE 20 MEQ TABLET.ER. PO ONE (19:30)
[2020-09-17] MEDS: MORPHINE SULFATE 4 MG/ML DISP.SYRIN. IVP PRN ×2 (20:40→23:02)
[2020-09-17] MEDS: ONDANSETRON PF 4 MG/2 ML VIAL. IVP PRN ×2 (20:40→22:25)
[2020-09-17] MEDS: IV NORMAL SALINE 1,000ML 1,000 ML IV SCH (21:30)
[2020-09-17 21:34] VITALS: BP 150/93
--- NOTE | 2020-09-17 22:35 | NUR ---
The patient, YUNI SCHUSTER, 55 y/o, F admitted by GAB QUIÑONES MD, to room 117, was given written information regarding hospital policies, unit procedures and contact persons. Pt was oriented to her room. Valuables were checked and left with the patient. Medical history was reviewed and assessments performed. Will continue to monitor.
[2020-09-18] MEDS: ONDANSETRON PF 4 MG/2 ML VIAL. IVP PRN ×2 (01:48→07:31)
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
[2020-09-18] MEDS: IV NORMAL SALINE 1,000ML 1,000 ML IV SCH ×3 (04:15→19:30)
[2020-09-18] MEDS: MORPHINE SULFATE 4 MG/ML DISP.SYRIN. IVP PRN ×4 (05:08→16:52)
[2020-09-18 05:40] VITALS: BP 130/83
[2020-09-18 07:09] LABS: BASO % 1 % (0-3); EOS % 1 % (0-3); HEMATOCRIT 35.6 % (36.0-47.0); HEMOGLOBIN 12.1 g/dL (12.0-15.5); LYMPH # 1.1 x10^3/uL (1.0-4.8); LYMPH % 25 % (24-48); MEAN CORPUSCULAR HEMOGLOBIN 37 pg (25-35); MEAN CORPUSCULAR HGB CONC 34 g/dL (31-37); MEAN CORPUSCULAR VOLUME 108 fL (79-100); MONO # 0.4 x10^3/uL (0.0-1.1); MONO % 8 % (0-9); NEUT % 65 % (31-73); PLATELET COUNT 206 x10^3/uL (140-400); RED CELL DISTRIBUTION WIDTH 16.2 % (11.5-14.5); WHITE BLOOD COUNT 4.5 x10^3/uL (4.0-11.0)
[2020-09-18 07:18] LABS: CALCIUM 7.9 mg/dL (8.5-10.1); CREATININE 0.5 mg/dL (0.6-1.0); GFR 128.1; POTASSIUM 3.3 mmol/L (3.5-5.1)
[2020-09-18] MEDS ORDERED: MAGNESIUM SULFATE 1GM 100 ML IV ONE (08:45)
--- NOTE | 2020-09-18 08:50 | HP ---
CHIEF COMPLAINT: Abdominal pain. HISTORY OF PRESENT ILLNESS: The patient is a 55-year-old female well known to us from previous admission. She has recurrent pancreatitis. She presented with abdominal pain, nausea or vomiting. She continues to drink heavily. She has underlying depression. She is very angry. She denies any drug use. She is a heavy smoker. She is admitted then with recurrent pancreatitis due to chronic alcoholism. PAST MEDICAL HISTORY: Significant for bilateral mastectomies. She has a prosthesis. She has COPD, gastroesophageal reflux disease, chronic alcoholism, depression with anxiety, heavy drinker as noted, she binge drink. SOCIAL HISTORY:. She smokes more than a pack of cigarettes daily. CURRENT MEDICINES: None. ALLERGIES: SULFA DRUGS, CAUSING A RASH. FAMILY HISTORY: Noncontributory. REVIEW OF SYSTEMS: Significant for the generalized weakness, abdominal pain, nausea and no appetite. Very flat affect. She denies any suicidal ideation. All other systems reviewed and determined to be negative. PHYSICAL EXAMINATION: GENERAL: When I saw her, this is a depressed female. VITAL SIGNS: Showed a blood pressure 130/83, pulse is 90 and regular. She was afebrile, oxygen saturation 92% on room air. HEENT: Head is without trauma. Pupils are reactive. Sclerae nonicteric. Oropharynx clear. NECK: Supple. No bruits identified. LUNGS: Clear. HEART: Irregular heart tones. No gallop. ABDOMEN: Soft. Minimal guarding, no rebound tenderness. Bowel sounds were hypoactive. EXTREMITIES: Showed no cyanosis or edema. NEUROLOGIC: Function focally intact. LABORATORY DATA: Potassium 3.3 mEq, sodium 142. Nonfasting blood sugar was 86, creatinine 0.8. Cardiac enzymes negative. Initial lipase was within normal range. ASSESSMENT: 1. Abdominal pain due to combination of alcoholic gastritis and pancreatitis clinically. 2. Chronic alcoholism. 3. COPD. 4. Underlying depression with anxiety. 5. Noncompliance to meds. PLAN: 1. Admit to the inpatient unit. 2. IV hydration. 3. N.p.o. 4. Nausea and pain control. 5. Potassium supplementation. ANGIE DR: Jacquelyn TID: [id number]
[2020-09-18] MEDS: POTASSIUM CHLORIDE 20 MEQ TABLET.ER. PO SCH (09:56)
[2020-09-18 11:00] VITALS: BP 119/78
[2020-09-18 15:00] VITALS: BP 122/77
[2020-09-18 19:00] VITALS: BP 117/77
[2020-09-18] MEDS ORDERED: ACETAMINOPHEN 325 MG TABLET PO PRN (20:30)
[2020-09-18] MEDS ORDERED: ONDANSETRON PF 4 MG/2 ML VIAL. IVP PRN (20:30)
[2020-09-18] MEDS: MORPHINE SULFATE 4 MG/ML DISP.SYRIN. IV PRN ×2 (21:18→23:49)
[2020-09-19] MEDS: MORPHINE SULFATE 4 MG/ML DISP.SYRIN. IV PRN ×2 (02:38→05:30)
[2020-09-19] MEDS: IV NORMAL SALINE 1,000ML 1,000 ML IV SCH ×2 (05:30→06:30)
[2020-09-19 05:31] VITALS: BP 119/73
[2020-09-19] MEDS: POTASSIUM CHLORIDE 20 MEQ TABLET.ER. PO SCH (08:32)
--- NOTE | 2020-09-19 09:32 | DS ---
DATE OF DISCHARGE: 09/19/2020 ATTENDING PHYSICIAN: Dr. Mandel. DATE OF ADMISSION: 09/17/2020 DATE OF DISCHARGE: 09/19/2020 FINAL DISCHARGE DIAGNOSES: 1. Alcoholic pancreatitis. 2. Chronic alcoholism. 3. Chronic obstructive pulmonary disease. 4. Underlying depression with anxiety. 5. Alcoholic neuropathy. HISTORY AND PHYSICAL: This 55-year-old female who is chronic alcoholic with several previous admissions. She continues to binge drink. She is admitted with abdominal pain, nausea and symptoms of alcoholic pancreatitis. PHYSICAL EXAMINATION: Please see the dictated note. PERTINENT LABORATORY AND X-RAY STUDIES: The ED evaluated her. They did not do extensive followup CT. She has had previous CT in the ED. Hemoglobin 14.2 grams, white count 7100. Electrolytes: Sodium 146, potassium 3.3 mEq. This is replaced and be followed as an outpatient. Cardiac enzymes were negative. Nonfasting blood sugar 123. Her bilirubin was 0.7. Transaminase, slight elevation. Alkaline phosphatase 175. COURSE IN HOSPITAL: The patient was admitted. She was started on potassium and magnesium replacement. Pain and nausea control and IV hydration. She did better. Diet was advanced. On the third hospital day, her symptoms were improved. Her blood pressure was 119/72. She was afebrile. Room air saturating 96% on room air. Lungs were clear and her abdominal symptoms have resolved. Therefore, she is discharged home with a script for Percocet 10/325 one p.o. q.6 hours p.r.n. pain. Strong encouragement to avoid further tobacco and alcohol use whether or not she will quit drinking or smoking remains to be seen. She does not have followup with her physician. She was discharged then from our hospital in stable condition with explicit drug and followup care. ANGIE DR: Jacquelyn TID: [id number]
--- NOTE | 2020-09-19 10:20 | NUR ---
Patient discharged to home. Given written discharge instructions and voiced understanding. All patient belongings sent home with patient. Ambulated off unit in w/c accompanied by staff. No concerns noted at discharge.
== END 2020-09-19 10:24 | disposition home or self-care (01) | DRG 440 ==
LOC: ER 15:51 → 1 SOUTH 18:12
PROVIDERS: ADMIT Hospitalist; ATTEND Hospitalist
DX: K85.20 Alcohol induced acute pancreatitis without necrosis or infection (principal); J44.9 Chronic obstructive pulmonary disease, unspecified; G62.1 Alcoholic polyneuropathy; F41.8 Other specified anxiety disorders; F10.20 Alcohol dependence, uncomplicated; F17.210 Nicotine dependence, cigarettes, uncomplicated; K29.20 Alcoholic gastritis without bleeding; M41.9 Scoliosis, unspecified; K21.9 Gastro-esophageal reflux disease without esophagitis; Z82.49 Family history of ischemic heart disease and other diseases of the circulatory system; Z90.13 Acquired absence of bilateral breasts and nipples; Z91.14 Patient's other noncompliance with medication regimen; Z88.2 Allergy status to sulfonamides; Y90.9 Presence of alcohol in blood, level not specified
CPT/HCPCS: 36415; 74022; 80048; 80053; 80307; 81001; 83690; 83735; 84100; 84484; 85025; 93005; 96361; 96365; 96375; 96376; 99406; G0480; J2270; J2405; J3010; J3475; J7120; 99285-25; J7030

== ENCOUNTER 2020-09-24 20:58 | Emergency (ER) | payer SELFPAY ==
[~2020-09-24] VITALS: Ht 170.2 cm; Wt 59.3 kg
--- NOTE | 2020-09-24 21:15 | PHYS DOC ---
Past History Past Medical History: COPD, GERD, Pancreatitis Additional Past Medical Histor: SCOLIOSIS, DDD, KYPHOSIS, breast cancer Past Surgical History: Other Additional Past Surgical Histo: bilateral masectomy Smoking: Greater than 1 pack/day Alcohol Use: Heavy Drug Use: None General Adult HPI: HPI: "... My pain is back.. here in my pancreatic area... Patient is a 55 year old female who presents with above hx and complaints of abdomen pain. Patient localizes pain to mid abdomen. And epigastric area. Patient relates this to be her pancreatic pain. Patient has history of recurrent episodes of pancreatitis. Initial pancreatitis induced by alcohol abuse. Patient denies any current alcohol use. Patient does continue to smoke. Patient recently admitted and discharged for 6 months for pancreatic exacerbation. Patient has past medical history significant for bilateral mastectomies, pancreatitis, COPD, arthritis, gastroesophageal reflux, alcoholism, depression, anxiety, anemia, and malnutrition. Patient normally follows with doctors at [facility]. No recent travel. No specific ill contacts. No history of immunosuppression. No history of recent trauma. Review of Systems: Review of Systems: Constitutional: Denies fever or chills Eyes: Denies change in visual acuity HENT: Denies nasal congestion or sore throat Respiratory: Denies cough or shortness of breath Cardiovascular: Denies chest pain or edema GI: Complains of epigastric abdominal pain, nausea,. Denies vomiting, bloody stools or diarrhea : Denies dysuria Musculoskeletal: Denies back pain or joint pain Integument: Denies rash Neurologic: Denies headache, focal weakness or sensory changes Endocrine: Denies polyuria or polydipsia Lymphatic: Denies swollen glands Psychiatric: Denies depression or anxiety Family History: Family History: Noncontributory to presentation. Current Medications: Current Meds: See nursing for home meds Allergies: Allergies: Allergies Coded Allergies Type Severity Reaction Last Updated Verified Sulfa (Sulfonamide Antibiotics) Allergy Intermediate N/V hives 03/22/20 Yes Physical Exam: PE: Constitutional: Reports acute distress, non-toxic appearance. [] HENT: Normocephalic, atraumatic, bilateral external ears normal, oropharynx dry, no oral exudates, nose normal. [] Eyes: PERRLA, EOMI, conjunctiva normal, no discharge. [] Neck: Normal range of motion, no tenderness, supple, no stridor. [] Cardiovascular: Tachycardia heart rate regular rhythm, no murmur [] Lungs & Thorax: Bilateral breath sounds equal apex scattered wheezes on auscultation [] Abdomen: Bowel sounds creased, soft, epigastric tenderness, no masses, no pulsatile masses. [] Skin: Warm, dry, no erythema, no rash. Poor turgor Back: No tenderness, no CVA tenderness. Kyphosis and scoliosis Extremities: No tenderness, no cyanosis, no clubbing, ROM intact, no edema. Arthritic changes Neurologic: Alert and oriented X 3, normal motor function, normal sensory function, no focal deficits noted. [] Psychologic: Affect anxious, judgement normal, mood normal. [] EKG: EKG: My interpretation EKG shows a sinus tachycardia at 116 bpm. There is some nonspecific contour changes. But no findings of acute STEMI with contralateral changes. [] Radiology/Procedures: Radiology/Procedures: [[address] [address] IMAGING REPORT Signed PATIENT: YUNI SCHUSTER ACCOUNT: [id number] : 1965 LOCATION: ER AGE: 55 SEX: F EXAM STATUS: REG ER ORD. PHYSICIAN: MARIO JIMENEZ MD REASON: OMNI 300,75ML IV.OMNI 240,30ML PO.ABD PAIN,HX PANCREATITIS PROCEDURE: CT ABD PELV W/ORAL&IV CONTRAST Study: CT abdomen/pelvis with intravenous contrast Indication: Abdominal pain. History of pancreatitis. Comparison: Most recently on 09/04/2020 Technique: Helical CT imaging performed of the abdomen and pelvis after the intravenous administration of 75 cc Omnipaque 300 contrast. Sagittal and coronal reformats were obtained. One or more of the following individualized dose reduction techniques were utilized for this examination: 1. Automated exposure control 2. Adjustment of the mA and/or kV according to patient size 3. Use of iterative reconstruction technique. Findings: The visualized lungs and mediastinal contents are unchanged. Partially imaged breast implants. Hepatic steatosis. Within normal limits gallbladder. Slightly increased prominence of the common duct measuring 9 mm approaching the pancreatic head. No newly seen peripancreatic inflammation. Faint peripancreatic haziness at the tail on the comparison is less noticeable on this exam. Findings of chronic pancreatitis with some calcifications at the head/uncinate process. The main pancreatic duct is mildly dilated. Unchanged spleen and adrenal glands. Symmetric renal enhancement. No collecting system obstruction. Unremarkable bladder. No newly seen abnormality of the reproductive organs. Mild constipation. Normal appendix. Nonobstructed small bowel. Less pronounced distention of upper abdominal small bowel from the prior. Unremarkable stomach. No pseudoaneurysm or central venous occlusion. Scattered calcified and noncalcified atheromatous plaque. Unchanged lymph nodes. No free fluid or pneumoperitoneum Unchanged osseous structures. Impression: 1. Sequela of chronic pancreatitis. Previously seen manifestations of mild active pancreatitis on 09/04/2020 are less noticeable on this exam. Collectively no acute abnormality is identified though correlate with lipase levels. 2. Redemonstrated dilatation of the common duct and pancreatic duct which is minimally more noticeable from 09/04/2020 but not changed to the extent that would suggest newly developed obstruction. 3. Hepatic steatosis and additional chronic observations as above. Electronically signed by: LOURDES ESPARZA MD (09/25/2020 12:02 AM) [facility] DICTATED AND SIGNED BY: LOURDES ESPARZA MD DATE: 09/24/20 6530 CC: MARIO JIMENEZ MD; PCP,NO ~MTH0 0 ][place] [address] IMAGING REPORT Signed PATIENT: YUNI SCHUSTER ACCOUNT: [id number] : 1965 LOCATION: ER AGE: 55 SEX: F EXAM STATUS: REG ER ORD. PHYSICIAN: MARIO JIMENEZ MD REASON: pain PROCEDURE: ACUTE ABDOMEN SERIES Exam: Acute abdominal series INDICATION: Pain TECHNIQUE: Frontal view of the chest with upright and supine views the abdomen Comparisons: 09/17/2020 FINDINGS: The cardiomediastinal silhouette and pulmonary vessels are within normal limits. The lung and pleural spaces are clear. There are a few air-filled distended/mildly dilated loops of small bowel in the left hemiabdomen. No suspicious calcifications or masses. Visualized osseous structures are unremarkable. IMPRESSION: 1. Few air-filled distended/mildly dilated loops of small bowel in the left hemiabdomen which are nonspecific could relate to developing obstructive process. 2. No acute cardiopulmonary process. Electronically signed by: Janette Dutton MD (09/24/2020 10:35 PM) [facility] DICTATED AND SIGNED BY: JANETTE DUTTON MD DATE: 09/24/202233 CC: MARIO JIMENEZ MD; PCP,NO ~MTH0 0 Heart Score: C/O Chest Pain: Yes HEART Score for Chest Pain: HEART Score for Chest Pain Response (Comments) Value History Slighlty/Non-Suspicious 0 ECG Nonspecific Repolarizatio 1 Age >45 - < 65 1 Risk Factors 1 or 2 Risk Factors 1 Troponin < Normal Limit 0 Total 3 Risk Factors: Risk Factors: DM, Current or recent (<one month) smoker, HTN, HLP, family history of CAD, obesity. Risk Scores: Score 0 - 3: 2.5% MACE over next 6 weeks - Discharge Home Score 4 - 6: 20.3% MACE over next 6 weeks - Admit for Clinical Observation Score 7 - 10: 72.7% MACE over next 6 weeks - Early Invasive Strategies Course & Med Decision Making: Course & Med Decision Making Pertinent Labs and Imaging studies reviewed. (See chart for details) P Pt. to stay on a clear fluid diet only for the next 48 hours. No solids. No milk products. Patient take Tylenol and ibuprofen for pain. May take Percocet up to 4 times a day for marked pain. Follow-up primary care. Patient consider celiac blocking for her chronic pancreatic pain. Patient return if any concerns. Impression: 1. Acute on chronic pancreatic pain-pancreatitis 2. Macrocytic indices 108. 3. Hypokalemia 2.9. 4. Mild elevation AST 139. [] Dragon Disclaimer: Conrad Disclaimer: This electronic medical record was generated, in whole or in part, using a voice recognition dictation system. Departure Departure: Referrals: PCP,NO (PCP) Scripts Famotidine (PEPCID) 20 Mg Tablet 20 MG PO BID for GERD for 60 Days, #120 TAB Prov: MARIO JIMENEZ MD 09/25/20 Oxycodone HCl/Acetaminophen (Percocet 5-325 mg Tablet) 1 Each Tablet 1 TAB PO PRN QID PRN for PAIN MDD 4 Tablet(s) for 5 Days, #30 TAB 0 Refills Prov: MARIO JIMENEZ MD 09/25/20 MARIO JIMENEZ MD September 24, 2020 21:15
[2020-09-24] MEDS: IV RINGERS SOLUTION,LACTATED 1,000 ML IV SCH (21:30)
[2020-09-24] MEDS ORDERED: IOHEXOL 240 MG/ML 50ML VIAL. ONE (22:26)
--- NOTE | 2020-09-24 22:38 | RAD ---
Exam: Acute abdominal series INDICATION: Pain TECHNIQUE: Frontal view of the chest with upright and supine views the abdomen Comparisons: 09/17/2020 FINDINGS: The cardiomediastinal silhouette and pulmonary vessels are within normal limits. The lung and pleural spaces are clear. There are a few air-filled distended/mildly dilated loops of small bowel in the left hemiabdomen. No suspicious calcifications or masses. Visualized osseous structures are unremarkable. IMPRESSION: 1. Few air-filled distended/mildly dilated loops of small bowel in the left hemiabdomen which are no nspecific could relate to developing obstructive process. 2. No acute cardiopulmonary process. Electronically signed by: Janette Delgado MD (09/24/2020 10:35 PM) SHAYY
[2020-09-24] MEDS ORDERED: CONTRAST GIVEN. MC PRN (23:00)
[2020-09-24] MEDS: MORPHINE SULFATE 10 MG/ML SYRINGE. SQ ONE (23:18)
[2020-09-24] MEDS: FAMOTIDINE 20 MG/2 ML VIAL IVP ONE (23:18)
[2020-09-24] MEDS: KETOROLAC 30 MG/ML VIAL. IVP ONE (23:18)
[2020-09-24] MEDS: ONDANSETRON PF 4 MG/2 ML VIAL. IVP ONE (23:19)
[2020-09-24] MEDS: IOHEXOL 300 MG/ML 75 ML VIAL. IV ONE (23:40)
[2020-09-24 23:49] LABS: BASO % 1 % (0-3); EOS % 1 % (0-3); HEMATOCRIT 39.5 % (36.0-47.0); HEMOGLOBIN 13.2 g/dL (12.0-15.5); LYMPH # 1.7 x10^3/uL (1.0-4.8); LYMPH % 27 % (24-48); MEAN CORPUSCULAR HEMOGLOBIN 36 pg (25-35); MEAN CORPUSCULAR HGB CONC 34 g/dL (31-37); MEAN CORPUSCULAR VOLUME 108 fL (79-100); MONO # 0.7 x10^3/uL (0.0-1.1); MONO % 12 % (0-9); NEUT # 3.6 x10^3uL (1.8-7.7); NEUT % 60 % (31-73); PLATELET COUNT 237 x10^3/uL (140-400); RED BLOOD COUNT 3.64 x10^6/uL (3.50-5.40); RED CELL DISTRIBUTION WIDTH 16.9 % (11.5-14.5); WHITE BLOOD COUNT 6.1 x10^3/uL (4.0-11.0)
--- NOTE | 2020-09-25 00:05 | RAD ---
Study: CT abdomen/pelvis with intravenous contrast Indication: Abdominal pain. History of pancreatitis. Comparison: Most recently on 09/04/2020 Technique: Helical CT imaging performed of the abdomen and pelvis after the intravenous administratio n of 75 cc Omnipaque 300 contrast. Sagittal and coronal reformats were obtained. One or more of the following individualized dose reduction techniques were utilized for this examinat ion: 1. Automated exposure control 2. Adjustment of the mA and/or kV according to patient size 3. Use of iterative reconstruction technique. Findings: The visualized lungs and mediastinal contents are unchanged. Partially imaged breast implants. Hepatic steatosis. Within normal limits gallbladder. Slightly increased prominence of the common duct measuring 9 mm approaching the pancreatic head. No newly seen peripancreatic inflammation. Faint per ipancreatic haziness at the tail on the comparison is less noticeable on this exam. Findings of chron ic pancreatitis with some calcifications at the head/uncinate process. The main pancreatic duct is mi ldly dilated. Unchanged spleen and adrenal glands. Symmetric renal enhancement. No collecting system obstruction. U nremarkable bladder. No newly seen abnormality of the reproductive organs. Mild constipation. Normal appendix. Nonobstructed small bowel. Less pronounced distention of upper ab dominal small bowel from the prior. Unremarkable stomach. No pseudoaneurysm or central venous occlusion. Scattered calcified and noncalcified atheromatous plaq ue. Unchanged lymph nodes. No free fluid or pneumoperitoneum Unchanged osseous structures. Impression: 1. Sequela of chronic pancreatitis. Previously seen manifestations of mild active pancreatitis on are less noticeable on this exam. Collectively no acute abnormality is identified though jered elate with lipase levels. 2. Redemonstrated dilatation of the common duct and pancreatic duct which is minimally more noticeab le from 09/04/2020 but not changed to the extent that would suggest newly developed obstruction. 3. Hepatic steatosis and additional chronic observations as above. Electronically signed by: LOURDES ESPARZA MD (09/25/2020 12:02 AM) [facility] [place]
--- NOTE | 2020-09-25 00:08 | EKG ---
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
[2020-09-25 00:09] LABS: ALBUMIN 3.5 g/dL (3.4-5.0); CALCIUM 8.8 mg/dL (8.5-10.1); CREATININE 0.5 mg/dL (0.6-1.0); DIRECT BILIRUBIN 0.3 mg/dL (0.0-0.2); GFR 128.1; TOTAL BILIRUBIN 0.6 mg/dL (0.2-1.0)
[2020-09-25 00:13] LABS: POTASSIUM 2.9 mmol/L (3.5-5.1)
[2020-09-25] MEDS ORDERED: OXYC-325 PO (00:35)
[2020-09-25] MEDS ORDERED: FAMO-63 PO (00:35)
[2020-09-25] MEDS: MAGNESIUM HYDROXIDE 2,400 MG/30 ML ORAL.SUSP. PO ONE (00:49)
[2020-09-25] MEDS: POTASSIUM CHLORIDE 20 MEQ TABLET.ER. PO ONE (00:49)
[2020-09-25] MEDS: MORPHINE SULFATE 10 MG/ML SYRINGE. SQ ONE (01:07)
[2020-09-25 01:30] VITALS: BP 126/78
== END 2020-09-25 01:35 | disposition home or self-care (01) ==
LOC: ER 20:58
DX: K85.90 Acute pancreatitis without necrosis or infection, unspecified (principal); E87.6 Hypokalemia; R07.9 Chest pain, unspecified; J44.9 Chronic obstructive pulmonary disease, unspecified; K21.9 Gastro-esophageal reflux disease without esophagitis; Z88.2 Allergy status to sulfonamides
CPT/HCPCS: 36415; 74022; 74177; 80048; 80076; 82150; 82550; 83690; 84484; 85025; 85610; 85730; 93005; 96374; 96375; 99285; G0480; J1885; J2270; J2405; J3490; Q9967

== ENCOUNTER 2020-12-07 17:45 | Inpatient (IN) | payer OTHER ==
[~2020-12-07] VITALS: Ht 170.2 cm; Wt 59.9 kg
[~2020-12-07 17:45] MED LIST changes: +FAMO-63 PO; +OXYC-325 PO
[2020-12-07] MEDS ORDERED: ONDANSETRON PF 4 MG/2 ML VIAL. IVP ONE (18:30)
[2020-12-07] MEDS ORDERED: IV NORMAL SALINE 1,000ML 1,000 ML IV ONE (18:30)
[2020-12-07] MEDS ORDERED: FAMOTIDINE 20 MG/2 ML VIAL IVP ONE (18:30)
[2020-12-07] MEDS ORDERED: CONTRAST GIVEN. MC PRN (18:30)
[2020-12-07] MEDS ORDERED: IOHEXOL 350 MG/ML 100 ML VIAL. IV ONE (18:30)
--- NOTE | 2020-12-07 18:41 | PHYS DOC ---
Past History Past Medical History: Alcoholism, COPD, GERD, Pancreatitis Additional Past Medical Histor: SCOLIOSIS, DDD, KYPHOSIS, breast cancer, neuropathy Past Surgical History: Cancer Surgery, Tubal ligation, Other Additional Past Surgical Histo: bilateral mastectomy Smoking: Greater than 1 pack/day Alcohol Use: Sober Drug Use: None General Adult EDM: Chief Complaint: ABDOMINAL PAIN HPI: HPI: Patient is a 55 year old female who presents with abdominal pain. Pt says pain first started 8-10 months ago but the latest episode began this morning at 3am. She described the pain as pancreatitis and says she has been admitted before for this pain. The pain is located epigastric and LUQ. The pain is sharp and constant with mild radiation to back. Nothing improves. Sneezing, coughing, deep breaths worsen. Pt also reports nausea and soft stools. Review of Systems: Review of Systems: Constitutional: Denies fever or chills Eyes: Denies redness or eye pain HENT: Denies nasal congestion or sore throat Respiratory: Denies cough or shortness of breath Cardiovascular: Denies palpitations. Reports chest pain. GI: Reports abdominal pain, nausea. Denies vomiting : Denies dysuria or hematuria Musculoskeletal: Reports back pain and leg pain Integument: Denies rash or skin lesions Neurologic: Denies headache, focal weakness. Reports reduced sensation below calves. Complete systems were reviewed and found to be within normal limits, except as documented in this note. Current Medications: Current Meds: Current Medications Medications (Trade) Dose Ordered Sig/Travis Start Time Stop Time Status Last Admin Dose Admin Famotidine (Pepcid Vial) 20 mg 1X ONCE 12/07/20 18:30 12/07/20 18:31 Fentanyl Citrate (Fentanyl 2ml Vial) 50 mcg 1X ONCE 12/07/20 18:30 12/07/20 18:31 Ondansetron HCl (Zofran) 4 mg 1X ONCE 12/07/20 18:30 12/07/20 18:31 Sodium Chloride 1,000 ml @ 1,000 mls/hr 1X ONCE 12/07/20 18:30 12/07/20 19:29 Allergies: Allergies: Allergies Coded Allergies Type Severity Reaction Last Updated Verified Sulfa (Sulfonamide Antibiotics) Allergy Intermediate N/V hives 03/22/20 Yes Physical Exam: PE: Constitutional: Well developed, well nourished, no acute distress, non-toxic appearance HENT: Normocephalic, atraumatic Eyes: EOMI, conjunctiva normal, no discharge Lungs & Thorax: No respiratory distress, equal chest rise and fall, clear to auscultation b/l Cardiovascular: Regular rate and rhythm, no murmurs Abdomen: Flat abdomen. Epigastric and LUQ tender to palpation. BSx4. Skin: Warm, dry, no erythema, no rash Back: No tenderness, no CVA tenderness Extremities: No tenderness, ROM intact, no edema Neurologic: Alert and oriented X 3, normal motor function, Reduced sensation below calves bilaterally. Psychologic: Affect normal, judgment normal EKG: EKG: obtained at 18:27 hrs 95 bpm QT 348 ms QTc 441 ms sinus rhythm Radiology/Procedures: Radiology/Procedures: PROCEDURE: CT ANGIO CHEST W ABD PEL W/ Exam: CT of chest, abdomen and pelvis with contrast INDICATION: Pleuritic upper abdominal pain, TECHNIQUE: Sequential axial images through the chest, abdomen and pelvis obtained following the administration of 100 mL of Omni 350 IV contrast. Sagittal and coronal reformatted images were reconstructed from the axial data and reviewed. Exposure: One or more of the following in the visualized dose reduction techniques were utilized for this examination: 1. Automated exposure control 2. Adjustment of the MA and/or KV according to patient size 3. Use of iterative of reconstructive technique Comparisons: 09/24/2020 FINDINGS: Visualized portions of the thyroid are unremarkable. No enlarged mediastinal lymph nodes are identified. Heart size is normal. No pericardial effusion. Thoracic aorta has a normal course and caliber. Pulmonary artery is not enlarged. No pulmonary embolus identified within the main, lobar or segmental pulmonary arteries. Airways are patent. No consolidation or pneumothorax. Moderate centrilobular emphysematous change noted predominantly at the upper lungs. No suspicious lung nodules are identified. No pleural effusion or thickening. Liver, spleen, gallbladder and adrenals are unremarkable. Chronic pancreatitis changes noted with a very ductal dilatation and calcifications noted at the pancreatic head. No perinephric inflammation or hydronephrosis. No renal or ureteral calculi are identified. Bladder is partially distended and not well evaluated. Uterus is not enlarged. No abnormal adnexal mass. Appendix is normal. Large and small bowel are unremarkable. No free abdominal air. There is a small amount of free fluid adjacent to No obstruction. Abdominal aorta has a normal course and caliber. Abdominal vasculature is ahmadi nt. No enlarged intra-abdominal lymph nodes are identified. No suspicious osseous lesions or acute fractures. IMPRESSION: 1. No pulmonary embolus identified within the main, lobar or segmental pulmonary arteries. 2. Small amount of free fluid noted in the pelvis. 3. Findings of chronic pancreatitis with mild adjacent stranding at the pancreatic tail. Correlate with lipase for acute inflammation. Electronically signed by: Janette Delgado MD (12/07/2020 7:33 PM) [facility] Heart Score: C/O Chest Pain: Yes HEART Score for Chest Pain: HEART Score for Chest Pain Response (Comments) Value History Slighlty/Non-Suspicious 0 ECG Normal 0 Age >45 - < 65 1 Risk Factors 1 or 2 Risk Factors 1 Troponin < Normal Limit 0 Total 2 Risk Factors: Risk Factors: DM, Current or recent (<one month) smoker, HTN, HLP, family history of CAD, obesity. Risk Scores: Score 0 - 3: 2.5% MACE over next 6 weeks - Discharge Home Score 4 - 6: 20.3% MACE over next 6 weeks - Admit for Clinical Observation Score 7 - 10: 72.7% MACE over next 6 weeks - Early Invasive Strategies Course & Med Decision Making: Course & Med Decision Making Pertinent Labs and Imaging studies reviewed. (See chart for details) Pt presented with abdominal pain which she described as "pancreatitis" and said she has been admitted several times before with the same pain. PE revealed tender epigastric and LUQ abdomen. Pt also described a chest pain that is parasternal on the right side. EKG does not suggest cardiac involvement. Chest CT w/ angio to rule out PE. Abd CT for possible pancreatitis. Lipase extremely elevated. CT suggests pancreatitis. Prescribing medicine for pain control. Patient requiring admission for further evaluation and treatment. Discussed with (hospitalist) who is in agreement with admission. Discussed findings and plan with patient, who acknowledges understanding and agreement. Conrad Disclaimer: Conrad Disclaimer: This electronic medical record was generated, in whole or in part, using a voice recognition dictation system. Departure Departure: Referrals: PCP,SARTHAK (PCP) PUNEET MCDERMOTT DO Dec 07, 2020 18:41
[2020-12-07 18:46] LABS: BILIRUBIN,URINE NEG (NEG); CLARITY,URINE CLEAR; COLOR,URINE YELLOW; GLUCOSE,URINE NEG (NEG); NITRITE,URINE NEG (NEG); UROBILINOGEN,URINE 0.2 mg/dL (0.2 mg/dL)
[2020-12-07 18:51] LABS: BACTERIA,URINE FEW /HPF (0-FEW); SQUAMOUS EPITHELIAL CELL,UR FEW /LPF
[2020-12-07 18:52] LABS: HYALINE CASTS, URINE OCC /HPF
[2020-12-07 18:56] LABS: BASO % 1 % (0-3); EOS # 0.1 x10^3/uL (0.0-0.7); EOS % 1 % (0-3); HEMATOCRIT 37.2 % (36.0-47.0); HEMOGLOBIN 12.3 g/dL (12.0-15.5); LYMPH % 23 % (24-48); MEAN CORPUSCULAR HEMOGLOBIN 35 pg (25-35); MEAN CORPUSCULAR HGB CONC 33 g/dL (31-37); MEAN CORPUSCULAR VOLUME 106 fL (79-100); MONO # 0.8 x10^3/uL (0.0-1.1); MONO % 9 % (0-9); NEUT # 5.9 x10^3uL (1.8-7.7); NEUT % 67 % (31-73); PLATELET COUNT 312 x10^3/uL (140-400); RED CELL DISTRIBUTION WIDTH 16.3 % (11.5-14.5); WHITE BLOOD COUNT 8.9 x10^3/uL (4.0-11.0)
--- NOTE | 2020-12-07 19:19 | EKG ---
[facility] [address] [place] [address] Test Date: 2020-12-07 Test Time: 18:27:42 Pat Name: YUNI SCHUSTER Department: Room: Gender: F Permit Coordinator: BRYSON : 1965 Requested By: PUNEET MCDERMOTT Order Number: [id number] Reading MD: Measurements Intervals [place] Rate: 95 P: 76 CA: 156 QRS: 74 QRSD: 72 T: 73 QT: 348 QTc: 441 Interpretive Statements SINUS RHYTHM OTHERWISE NORMAL ECG RI6.02 No previous ECG available for comparison
[2020-12-07 19:29] LABS: CALCIUM 8.6 mg/dL (8.5-10.1); CREATININE 0.7 mg/dL (0.6-1.0); GFR 86.9; POTASSIUM 3.8 mmol/L (3.5-5.1)
--- NOTE | 2020-12-07 19:35 | RAD ---
Exam: CT of chest, abdomen and pelvis with contrast INDICATION: Pleuritic upper abdominal pain, TECHNIQUE: Sequential axial images through the chest, abdomen and pelvis obtained following the admin istration of 100 mL of Omni 350 IV contrast. Sagittal and coronal reformatted images were reconstruct ed from the axial data and reviewed. Exposure: One or more of the following in the visualized dose reduction techniques were utilized for this examination: 1. Automated exposure control 2. Adjustment of the MA and/or KV according to patient size 3. Use of iterative of reconstructive technique Comparisons: 09/24/2020 FINDINGS: Visualized portions of the thyroid are unremarkable. No enlarged mediastinal lymph nodes are identifi ed. Heart size is normal. No pericardial effusion. Thoracic aorta has a normal course and caliber. Pulmon maury artery is not enlarged. No pulmonary embolus identified within the main, lobar or segmental pulmo nary arteries. Airways are patent. No consolidation or pneumothorax. Moderate centrilobular emphysematous change not ed predominantly at the upper lungs. No suspicious lung nodules are identified. No pleural effusion or thickening. Liver, spleen, gallbladder and adrenals are unremarkable. Chronic pancreatitis changes noted with a v barbara ductal dilatation and calcifications noted at the pancreatic head. No perinephric inflammation or hydronephrosis. No renal or ureteral calculi are identified. Bladder is partially distended and not well evaluated. Uterus is not enlarged. No abnormal adnexal ma ss. Appendix is normal. Large and small bowel are unremarkable. No free abdominal air. There is a small a mount of free fluid adjacent to No obstruction. Abdominal aorta has a normal course and caliber. Abdominal vasculature is patent. No enlarged intra-abdominal lymph nodes are identified. No suspicious osseous lesions or acute fractures. IMPRESSION: 1. No pulmonary embolus identified within the main, lobar or segmental pulmonary arteries. 2. Small amount of free fluid noted in the pelvis. 3. Findings of chronic pancreatitis with mild adjacent stranding at the pancreatic tail. Correlate w ith lipase for acute inflammation. Electronically signed by: Janette Delgado MD (12/07/2020 7:33 PM) [facility]
[2020-12-07 19:44] LABS: ALBUMIN 3.6 g/dL (3.4-5.0); ALBUMIN/GLOBULIN RATIO 1.2 (1.0-1.7); TOTAL BILIRUBIN 0.3 mg/dL (0.2-1.0); TOTAL PROTEIN 6.6 g/dL (6.4-8.2)
[2020-12-07] MEDS ORDERED: MORPHINE SULFATE 4 MG/ML DISP.SYRIN. IV ONE (21:30)
[2020-12-07 22:24] VITALS: BP 113/69
[2020-12-07] MEDS: IV NORMAL SALINE 1,000ML 1,000 ML IV SCH (23:07)
[2020-12-07] MEDS: MORPHINE SULFATE 4 MG/ML DISP.SYRIN. IVP PRN (23:31)
--- NOTE | 2020-12-08 01:56 | NUR ---
PT ADMITTED TO [facility] VIA EMS ACCOMPANIED BY ER STAFF. PT AMBULATED FROM GURNEY TO BED INDEPENDENTLY. PT AOX4. PT COMPLAINS OF LUQ PAIN RATING 8/10 ON NUMERIC SCALE. PRN MORPHINE GIVEN INDICATED. PT DENIES TAKING ANY HOME MEDICATIONS. POC DISCUSSED W/ VERBALIZED UNDERSTANDING. CALL LIGHT IN REACH WILL CONTINUE TO MONITOR.
[2020-12-08] MEDS: MORPHINE SULFATE 4 MG/ML DISP.SYRIN. IVP PRN ×9 (02:05→20:23)
[2020-12-08] MEDS ORDERED: NICOTINE 21MG PATCH. TD ONE (02:30)
[2020-12-08 06:27] VITALS: BP 98/67
[2020-12-08] MEDS: ONDANSETRON PF 4 MG/2 ML VIAL. IVP PRN ×2 (09:17→13:28)
[2020-12-08] MEDS: IV NORMAL SALINE 1,000ML 1,000 ML IV SCH ×2 (10:10→23:13)
[2020-12-08 10:47] VITALS: BP 94/64
--- NOTE | 2020-12-08 11:17 | HP ---
ADMIT DATE: 12/08/2020 ATTENDING PHYSICIAN: Dr. Mandel. CHIEF COMPLAINT: Abdominal pain. HISTORY OF PRESENT ILLNESS: The patient is a 55-year-old female who has chronic alcohol related pancreatitis. She adamantly says she has not drunk any alcohol since 2 months ago from her previous admission. She has new onset of abdominal pain. The lipase level was markedly elevated at 14,000. She is symptomatic. CT scan showed mild dilatation of the pancreatic duct. No stones identified. She has some peripancreatic stranding consistent with chronic alcohol pancreatitis. She is admitted then with acute on chronic pancreatitis. PAST MEDICAL HISTORY: Significant for alcoholism, COPD, continued tobacco use, gastroesophageal reflux disease, kyphosis, breast cancer and bilateral mastectomies. PAST SURGICAL HISTORY: Bilateral mastectomy, tubal ligation. SOCIAL HISTORY: Smoking history, 1 pack a day. Drinking history, she was a heavy drinker up to about 2 months ago. She denied any current alcohol use. ALLERGIES: SHE HAS ALLERGIES TO SULFA DRUGS. CURRENT MEDICATIONS ON ADMISSION: Include the following: She was taking Pepcid, melatonin and p.r.n. oxycodone. FAMILY HISTORY: Mother of complications of COPD and respiratory failure at age 68. Father of complication of abdominal surgery at age 79, he also had kidney cancer. REVIEW OF SYSTEMS: Significant for the chronic alcohol use. No recent COVID exposure. No travel. All other systems reviewed and turned to be negative. PHYSICAL EXAMINATION: GENERAL: When I saw her, this is a thin female, appearing older than her stated age. VITAL SIGNS: Her initial vital signs showed a blood pressure of 98/67, pulse is 99 and regular, she was afebrile, oxygen saturation 96% on room air. HEENT: Head is without trauma. Pupils are reactive. Sclerae nonicteric. Oropharynx is clear. NECK: Supple, no bruits. LUNGS: Good breath sounds. CARDIOVASCULAR: Showed regular heart tones. No gallops. ABDOMEN: Tender to palpation. No rebound tenderness. Bowel sounds are hypoactive. No masses palpated. EXTREMITIES: Showed no cyanosis or edema. NEUROLOGIC: Function focally intact. SKIN: Warm and dry. PERTINENT LABORATORY STUDIES: Hemoglobin 12.3 grams per deciliter, white count 8900, MCV is 106. Lipase level is 14,034. Electrolytes within normal range. Cardiac enzymes negative. ASSESSMENT: 1. A 55-year-old female with acute pancreatitis. 2. Chronic pancreatitis. 3. Chronic alcoholism. 4. Chronic obstructive pulmonary disease. Continued tobacco use. PLAN: 1. Admit to the inpatient unit. 2. N.p.o. except for clear liquids. 3. Pain and nausea control. 4. Nicotine patch. 5. Advance diet as tolerated. REYNALDO/EVONNE/ROSSY DR: Jacquelyn TID: [id number]
[2020-12-08] MEDS: NICOTINE 21MG PATCH. TD SCH (11:29)
[2020-12-08 14:45] VITALS: BP 94/58
[2020-12-08 20:23] VITALS: BP 98/63
[2020-12-08] MEDS: MORPHINE SULFATE 4 MG/ML DISP.SYRIN. IV PRN (23:13)
[2020-12-09] MEDS: MORPHINE SULFATE 4 MG/ML DISP.SYRIN. IV PRN ×4 (01:20→07:58)
[2020-12-09 06:11] VITALS: BP 114/75
[2020-12-09] MEDS: NICOTINE 21MG PATCH. TD SCH (07:58)
--- NOTE | 2020-12-09 10:16 | NUR ---
NURSING NOTE DISCHARGE PT DISCHARGED HOME VIA AMBULATION. PT GIVEN WRITTEN AND VERBAL DISCHARGE INSTRUCTIONS. PT GIVEN HAND SCRIPT FOR PAIN MEDICATION. NO COMPLICATIONS. KEVIN MONTEJO.
[2020-12-09] MEDS ORDERED: OXYC-316 PO (11:15)
--- NOTE | 2020-12-09 15:46 | DS ---
DATE OF DISCHARGE: 12/09/2020 ATTENDING PHYSICIAN: Dr. Mandel. FINAL DISCHARGE DIAGNOSES: 1. Acute pancreatitis. 2. Chronic pancreatitis. 3. Chronic alcoholism. 4. Chronic obstructive pulmonary disease, continued tobacco use. HISTORY AND PHYSICAL: The patient is a 55-year-old female well known to us with alcoholic pancreatitis admission in the past. She states she has not drank any alcohol. Whether or not she is drinking remains to be seen. She was admitted with abdominal pain, nausea, and evidence of pancreatitis. PHYSICAL EXAMINATION: Please see the dictated note. PERTINENT LABORATORY AND X-RAY STUDIES: Hemoglobin is 12.3 g/dL on admission; white count 8900. Lipase was 14,000. IMAGING STUDIES: The CT of the abdomen showed adjacent stranding of the pancreatic tail consistent with chronic pancreatitis. COURSE IN HOSPITAL: The patient was admitted. She was kept n.p.o., given IV fluids, pain and nausea control. She did well. Diet was advanced to liquids. On the third hospital day, her vital signs were stable. She was afebrile. BP 114/75, pulse is 90 and regular, oxygen saturation 94% on room air. I examined her abdomen, it was soft, it has minimal guarding. There was no rebound tenderness. Normoactive bowel sounds. She was ready for discharge. Strong encouragement to avoid further alcohol use. Whether or not she will quit drinking remains to be seen. I gave her a script for Percocet 7.5 mg one every 6 hours p.r.n. pain. Other home meds include Pepcid and melatonin. She has a followup visit with her new PCP as scheduled. She was discharged then from our hospital in stable condition with explicit instructions and followup care. TOTAL DISCHARGE TIME SPENT: 38 minutes. REYNALDO/BRAEDEN/JADIEL DR: REYNALDO/mercedes TID: [id number]
== END 2020-12-09 10:20 | disposition home or self-care (01) | DRG 440 ==
LOC: ER 17:45 → 1 SOUTH 21:36
PROVIDERS: ADMIT Internal Medicine; ATTEND Internal Medicine
DX: K85.90 Acute pancreatitis without necrosis or infection, unspecified (principal); F10.20 Alcohol dependence, uncomplicated; J44.9 Chronic obstructive pulmonary disease, unspecified; K86.1 Other chronic pancreatitis; M41.9 Scoliosis, unspecified; Z72.0 Tobacco use; Z80.51 Family history of malignant neoplasm of kidney; Z82.5 Family history of asthma and other chronic lower respiratory diseases; Z85.3 Personal history of malignant neoplasm of breast; Z90.13 Acquired absence of bilateral breasts and nipples; K21.9 Gastro-esophageal reflux disease without esophagitis
CPT/HCPCS: 36415; 71275; 74177; 80053; 81001; 82553; 82947; 83605; 83690; 83735; 84484; 85025; 87086; 93005; 96361; 96374; 96375; J2270; J2405; J3010; J3490; Q9967; 99285-25; J7030

== ENCOUNTER 2020-12-18 17:02 | Emergency (ER) | payer OTHER ==
[~2020-12-18] VITALS: Ht 170.2 cm; Wt 59.9 kg
[~2020-12-18 17:02] MED LIST changes: +OXYC-316 PO
[2020-12-18] MEDS ORDERED: IV NORMAL SALINE 1,000ML 1,000 ML IV ONE (17:30)
[2020-12-18] MEDS ORDERED: ONDANSETRON PF 4 MG/2 ML VIAL. IVP ONE (17:30)
[2020-12-18] MEDS ORDERED: IOHEXOL 300 MG/ML 75 ML VIAL. IV ONE (17:30)
--- NOTE | 2020-12-18 17:38 | PHYS DOC ---
Past History Past Medical History: Alcoholism, COPD, GERD, Pancreatitis Additional Past Medical Histor: SCOLIOSIS, DDD, KYPHOSIS, breast cancer, neuropathy (CORDELIA CARDOZO APRN) Past Surgical History: Cancer Surgery, Tubal ligation, Other Additional Past Surgical Histo: bilateral mastectomy (CORDELIA CARDOZO APRN) Smoking: Greater than 1 pack/day Alcohol Use: None Additional Alcohol Information: states she quit 1 month ago Drug Use: None (CORDELIA CARDOZO APRN) General Adult EDM: Chief Complaint: ABDOMINAL PAIN HPI: HPI: Patient is a 55-year-old female who presents to the ER today for abdominal pain. She reports left upper quadrant pain and nausea. She rates the pain 8 out of 10 describes it as a constant spasming pain. She has a history of pancreatitis and was inpatient at this hospital on December 07. She reports that her pain her s ymptoms never fully improved from that admission. Patient denies dysuria, vomiting, diarrhea, chest pain, shortness of breath, sick exposures. (CORDELIA CARDOZO APRN) Review of Systems: Review of Systems: 14 body systems of the review of systems have been reviewed. See HPI for pertinent positive and negative responses, otherwise all other systems are negative, nonpertinent or noncontributory (CORDELIA CARDOZO APRN) Current Medications: Current Meds: Current Medications Medications (Trade) Dose Ordered Sig/Travis Start Time Stop Time Status Last Admin Dose Admin Fentanyl Citrate (Fentanyl 2ml Vial) 50 mcg 1X ONCE 12/18/20 17:30 12/18/20 17:31 DC Info (Do NOT chart on this entry -- for MONITORING) 1 each PRN DAILY PRN 12/18/20 17:45 12/20/20 17:44 Iohexol (Omnipaque 300 Mg/ml) 75 ml 1X ONCE 12/18/20 17:30 12/18/20 17:33 DC Ondansetron HCl (Zofran) 4 mg 1X ONCE 12/18/20 17:30 12/18/20 17:31 DC Sodium Chloride 1,000 ml @ 1,000 mls/hr 1X ONCE 12/18/20 17:30 12/18/20 18:29 (CORDELIA CARDOZO APRN) Allergies: Allergies: Allergies Coded Allergies Type Severity Reaction Last Updated Verified Sulfa (Sulfonamide Antibiotics) Allergy Intermediate N/V hives 03/22/20 Yes (CORDELIA CARDOZO PERMACULTURE DESIGNER) Physical Exam: PE: Constitutional: Well developed, well nourished, no acute distress, non-toxic appearance. [] HENT: Normocephalic, atraumatic, bilateral external ears normal, oropharynx moist, no oral exudates, nose normal. [] Eyes: PERRL, conjunctiva normal, no discharge. [] Neck: Normal range of motion, no stridor Cardiovascular:Heart rate regular rhythm, no murmur [] Lungs & Thorax: Bilateral breath sounds clear to auscultation [] Abdomen: Bowel sounds normal, soft, no masses, no distention, no pulsatile masses, left upper quadrant pain with palpation. [] Skin: Warm, dry, no erythema, no rash. [] Back: No tenderness, no CVA tenderness. [] Extremities: No tenderness, no cyanosis, no clubbing, ROM intact, no edema. [] Neurologic: Alert and oriented X 3, normal motor function, normal sensory function, no focal deficits noted. [] Psychologic: Affect normal, judgement normal, mood normal. [] (CORDELIA CARDOZO PERMACULTURE DESIGNER) Current Patient Data: Labs: Laboratory Tests Test 12/18/20 17:40 12/18/20 17:41 Urine Collection Type Unknown Urine Color Yellow Urine Clarity Hazy Urine pH 7.0 Urine Specific [place] 1.020 Urine Protein Neg Urine Glucose (UA) Neg mg/dL Urine Ketones (Stick) Neg mg/dL Urine Blood Neg Urine Nitrite Neg Urine Bilirubin Neg Urine Urobilinogen Dipstick 0.2 mg/dL Urine Leukocyte Esterase Trace Urine RBC Rare /HPF Urine WBC Occ /HPF Urine Squamous Epithelial Cells Mod /LPF Urine Bacteria Few /HPF White Blood Count 9.5 x10^3/uL Red Blood Count 3.66 x10^6/uL Hemoglobin 12.6 g/dL Hematocrit 38.2 % Mean Corpuscular Volume 105 fL Mean Corpuscular Hemoglobin 35 pg Mean Corpuscular Hemoglobin Concent 33 g/dL Red Cell Distribution Width 15.7 % Platelet Count 472 x10^3/uL Neutrophils (%) (Auto) 63 % Lymphocytes (%) (Auto) 29 % Monocytes (%) (Auto) 7 % Eosinophils (%) (Auto) 1 % Basophils (%) (Auto) 1 % Neutrophils # (Auto) 5.9 x10^3uL Lymphocytes # (Auto) 2.7 x10^3/uL Monocytes # (Auto) 0.7 x10^3/uL Eosinophils # (Auto) 0.1 x10^3/uL Basophils # (Auto) 0.1 x10^3/uL Sodium Level 137 mmol/L Potassium Level 4.2 mmol/L Chloride Level 101 mmol/L Carbon Dioxide Level 28 mmol/L Anion Gap 8 Blood Urea Nitrogen 13 mg/dL Creatinine 0.7 mg/dL Estimated GFR (Cockcroft-Gault) 86.9 BUN/Creatinine Ratio 19 Glucose Level 97 mg/dL Calcium Level 9.0 mg/dL Total Bilirubin 0.2 mg/dL Aspartate Amino Transf (AST/SGOT) 14 U/L Alanine Aminotransferase (ALT/SGPT) 12 U/L Alkaline Phosphatase 93 U/L Troponin I Quantitative < 0.017 ng/mL Total Protein 7.0 g/dL Albumin 3.5 g/dL Albumin/Globulin Ratio 1.0 Lipase 133 U/L Current Medications Medications (Trade) Dose Ordered Sig/Travis Route PRN Reason Start Time Stop Time Status Last Admin Dose Admin Sodium Chloride 1,000 ml @ 1,000 mls/hr 1X ONCE IV 12/18/20 17:30 12/18/20 18:29 DC 12/18/20 17:45 Ondansetron HCl (Zofran) 4 mg 1X ONCE IVP 12/18/20 17:30 12/18/20 17:31 DC 12/18/20 17:44 Fentanyl Citrate (Fentanyl 2ml Vial) 50 mcg 1X ONCE IVP 12/18/20 17:30 12/18/20 17:31 DC 12/18/20 17:44 Iohexol (Omnipaque 300 Mg/ml) 75 ml 1X ONCE IV 12/18/20 17:30 12/18/20 17:33 DC 12/18/20 17:52 Info (Do NOT chart on this entry -- for MONITORING) 1 each PRN DAILY PRN MC SEE COMMENTS 12/18/20 17:45 12/20/20 17:44 Fentanyl Citrate (Fentanyl 2ml Vial) 50 mcg 1X ONCE IVP 12/18/20 18:45 12/18/20 18:46 UNV Vital Signs: Vital Signs Date Time Temp Pulse Resp B/P (MAP) Pulse Ox O2 Delivery O2 Flow Rate FiO2 12/18/20 17:14 98.9 89 16 146/86 99 Room Air (CORDELIA CARDOZO APRN) EKG: EKG: [] (CORDELIA CARDOZO APRN) Radiology/Procedures: Radiology/Procedures: PROCEDURE: CT ABD PELV W/ IV CONTRST ONLY Exam: CT of abdomen and pelvis with contrast INDICATION: Abdominal pain, history of pancreatitis TECHNIQUE: Sequential axial images through the abdomen and pelvis obtained following the administration of 75 mm Isovue-370 IV contrast. Sagittal and coronal reformatted images were reconstructed from the axial data and reviewed. Exposure: One or more of the following in the visualized dose reduction techniques were utilized for this examination: 1. Automated exposure control 2. Adjustment of the MA and/or KV according to patient size 3. Use of iterative of reconstructive technique Comparisons: 12/07/2020 FINDINGS: Heart size is normal. No pericardial strandy opacities the dependent portion lungs likely representing atelectasis. No pleural effusion. Liver, spleen, pancreas and adrenals are unremarkable. Gallbladder is partially distended and not well evaluated. No perinephric inflammation or hydronephrosis. No renal or ureteral calculi are identified. Bladder is decompressed not well evaluated. Uterus is nonenlarged. No abnormal adnexal mass. Large and small bowel are unremarkable. Appendix is normal. No free intra- abdominal air or fluid. No obstruction. Abdominal aorta has a normal course and caliber. Abdominal vasculature is patent. No enlarged intra-abdominal lymph nodes are identified. No suspicious osseous lesions or acute fractures. IMPRESSION: 1. No acute process identified in the abdomen or pelvis. 2. Cystic lesion at the pancreatic tail measuring approximately 1.8 cm in long axis. Mild pancreatic ductal dilatation. This may all represent sequela of prior pancreatitis and is unchanged from prior exam. Electronically signed by: Janette Dutton MD (12/18/2020 6:12 PM) [facility] DICTATED AND SIGNED BY: JANETTE DUTTON MD DATE: 12/18/201805 CC: CORDELIA CARDOZO APRN; PCP,NO ~MTH0 0 [] (CORDELIA CARDOZO APRN) Heart Score: C/O Chest Pain: No Risk Factors: Risk Factors: DM, Current or recent (<one month) smoker, HTN, HLP, family history of CAD, obesity. Risk Scores: Score 0 - 3: 2.5% MACE over next 6 weeks - Discharge Home Score 4 - 6: 20.3% MACE over next 6 weeks - Admit for Clinical Observation Score 7 - 10: 72.7% MACE over next 6 weeks - Early Invasive Strategies (CORDELIA CARDOZO APRN) Course & Med Decision Making: Course & Med Decision Making Pertinent Labs and Imaging studies reviewed. (See chart for details) [] Patient is a 55-year-old female being seen for left upper quadrant pain. Patient has a history of pancreatitis. Work-up in the ER consisted of blood work, UA, CT scan of abdomen. Patient was treated in the ER with fluids, nausea medication, pain medication. CBC was unremarkable. CMP was unremarkable. Patient does not have an elevated lipase or any elevated liver enzymes. CT scan is unchanged from her previous hospitalization on December 07 and shows chronic pancreatitis versus cystic lesion on pancreas. Patient is not experiencing acute pancreatitis at this time. Patient's UA was positive for urinary tract infection this will be treated with an antibiotic. Patient given pain me dication for abdominal pain and given strict return precautions. Patient told to follow-up with her GI doctor or primary care provider. I discussed with patient all findings and diagnostic testing as well as the need to follow-up with PCP for further evaluation and treatment or return to the ER if any new or worsening symptoms. Strict return precautions were also discussed at length. Patient voiced understanding and agreement with the plan. Patient is hemodynamically stable at the time of disposition. (CORDELIA CARDOZO APRN) Dragon Disclaimer: Dragon Disclaimer: This electronic medical record was generated, in whole or in part, using a voice recognition dictation system. (CORDELIA CARDOZO APRN) Attending Co-Sign The patient was seen and interviewed as well as examined at the bedside. The chart was reviewed. The case was discussed. Agree with the plan of care. (COLT SALINAS DO) Departure Departure: Impression: Primary Impression: Chronic pancreatitis Qualified Codes: K86.0 - Alcohol-induced chronic pancreatitis Disposition: HOME / SELF CARE / HOMELESS Condition: GOOD Referrals: PCP,NO (PCP) Patient Instructions: Acute Pancreatitis, Urinary Tract Infection Additional Instructions: You were seen in the ER today for abdominal pain as we discussed, your work-up was unremarkable. You do not have elevated lipase or liver enzymes and therefore are not experiencing any acute flare of your pancreatitis. You do have chronic pancreatitis as evidenced by your CT scan. You were also noted to have a urinary tract infection. You are being sent with a prescription for an antibiotic to treat your UTI. Make sure you start and finish this antibiotic completely. You were given a prescription for pain medication. Realize that th is pain medication is an opiate and may cause sedation. Do not take this medication when you need to be alert and do not take this with alcohol. It appears that you have a history of alcohol induced pancreatitis. Your pancreatitis will not get better if you continue to drink alcohol. You need to follow-up with your primary care provider tomorrow regarding your ER visit. You need to establish care with a GI doctor if you do not already have one. Increase your fluids and stick to a clear liquid diet over the next 24 hours. Avoid eating any spicy/greasy/fatty foods. If you develop worsening of your abdominal pain, high fevers, uncontrollable nausea or vomiting, blood in your stools or vomit please return to the ER immediately. EMERGENCY DEPARTMENT GENERAL DISCHARGE INSTRUCTIONS Thank you for coming to [facility] (ED) today and trusting us with you care. We trust that you had a positivie experience in our Emergency Department. If you wish to speak to the department management, you may call the director at [phone]. YOUR FOLLOW UP INSTRUCTIONS ARE FOLLOWS: 1. Do you have a private Doctor? If you do not have a private doctor, please ask for a resource list of physicians or clinics that may be able to assist you with fol low up care. 2. The Emergency Physician has interpreted your x-rays. The X-Ray specialist will also review them. If there is a change in the findings, you will be notified in 48 hours when at all possible. 3. A lab test or culture has been done, your results will be reviewed and you will be notified if you need a change in treatment. ADDITIONAL INSTRUCTIONS AND INFORMATION: 1. Your care today has been supervised by a physician who is specially trained in emergency care. Many problems require more than one evaluation for a complete diagnosis and treatment. We recommend that you schedule your follow up appointment as r ecommended to ensure complete treatment of you illness or injury. If you are unable to obtain follow up care and continue to have a problem, or if your condition worsens, we recommend that you return to the ED. 2. We are not able to safely determine your condition over the phone nor are we able to give sound medical advice over the phone. For these safety reasons, if you call for medical advice we will ask you to come to the ED for further evaluation. 3. If you have any questions regarding these discharge instructions please call the ED at [phone]. SAFETY INFORMATION: In the interest of safety, wellness, and injury prevention; we encourage you to wear your sealbelt, if you smoke; quite smoking, and we encourage family to use a protective helmet for bicycling and other sporting events that present an increased risk for head injury. IF YOUR SYMPTOMS WORSEN OR NEW SYMPTOMS DEVELOP, OR YOU HAVE CONCERNS ABOUT YOUR CONDITION; OR IF YOUR CONDITION WORSENS WHILE YOU ARE WAITING FOR YOUR FOLLOW UP APPOINTMENT; EITHER CONTACT YOUR PRIMARY CARE DOCTOR, THE PHYSICIAN WHOSE NAME AND NUMBER YOU WERE GIVEN, OR RETURN TO THE ED IMMEDIATELY. Scripts Hydrocodone/Acetaminophen (Hydrocodone-Acetamin 5-325 mg) 1 Each Tablet 1 EACH PO Q6HRS for abdominal pain for 2 Days, #8 TAB 0 Refills Prov: CORDELIA CARDOZO APRN 12/18/20 Cephalexin (CEPHALEXIN) 500 Mg Tablet 1 TAB PO BID for uti for 5 Days, #10 TAB 0 Refills Prov: CORDELIA CARDOZO APRN 12/18/20 CORDELIA CARDOZO APRN Dec 18, 2020 17:38 COLT SALINAS DO Dec 19, 2020 05:36
[2020-12-18] MEDS ORDERED: CONTRAST GIVEN. MC PRN (17:45)
[2020-12-18 18:14] LABS: CREATININE 0.7 mg/dL (0.6-1.0); GFR 86.9; POTASSIUM 4.2 mmol/L (3.5-5.1)
--- NOTE | 2020-12-18 18:14 | RAD ---
Exam: CT of abdomen and pelvis with contrast INDICATION: Abdominal pain, history of pancreatitis TECHNIQUE: Sequential axial images through the abdomen and pelvis obtained following the administrati on of 75 mm Isovue-370 IV contrast. Sagittal and coronal reformatted images were reconstructed from t he axial data and reviewed. Exposure: One or more of the following in the visualized dose reduction techniques were utilized for this examination: 1. Automated exposure control 2. Adjustment of the MA and/or KV according to patient size 3. Use of iterative of reconstructive technique Comparisons: 12/07/2020 FINDINGS: Heart size is normal. No pericardial strandy opacities the dependent portion lungs likely representin g atelectasis. No pleural effusion. Liver, spleen, pancreas and adrenals are unremarkable. Gallbladder is partially distended and not wel l evaluated. No perinephric inflammation or hydronephrosis. No renal or ureteral calculi are identified. Bladder is decompressed not well evaluated. Uterus is nonenlarged. No abnormal adnexal mass. Large and small bowel are unremarkable. Appendix is normal. No free intra-abdominal air or fluid. No obstruction. Abdominal aorta has a normal course and caliber. Abdominal vasculature is patent. No enlarged intra-abdominal lymph nodes are identified. No suspicious osseous lesions or acute fractures. IMPRESSION: 1. No acute process identified in the abdomen or pelvis. 2. Cystic lesion at the pancreatic tail measuring approximately 1.8 cm in long axis. Mild pancreatic ductal dilatation. This may all represent sequela of prior pancreatitis and is unchanged from prior exam. Electronically signed by: Janette Delgado MD (12/18/2020 6:12 PM) [facility]
[2020-12-18 18:16] LABS: BASO # 0.1 x10^3/uL (0.0-0.2); BASO % 1 % (0-3); EOS # 0.1 x10^3/uL (0.0-0.7); EOS % 1 % (0-3); HEMATOCRIT 38.2 % (36.0-47.0); HEMOGLOBIN 12.6 g/dL (12.0-15.5); LYMPH # 2.7 x10^3/uL (1.0-4.8); LYMPH % 29 % (24-48); MEAN CORPUSCULAR HEMOGLOBIN 35 pg (25-35); MEAN CORPUSCULAR HGB CONC 33 g/dL (31-37); MEAN CORPUSCULAR VOLUME 105 fL (79-100); MONO # 0.7 x10^3/uL (0.0-1.1); MONO % 7 % (0-9); NEUT # 5.9 x10^3uL (1.8-7.7); NEUT % 63 % (31-73); PLATELET COUNT 472 x10^3/uL (140-400); RED BLOOD COUNT 3.66 x10^6/uL (3.50-5.40); RED CELL DISTRIBUTION WIDTH 15.7 % (11.5-14.5); WHITE BLOOD COUNT 9.5 x10^3/uL (4.0-11.0)
[2020-12-18 18:21] LABS: ALBUMIN 3.5 g/dL (3.4-5.0); TOTAL BILIRUBIN 0.2 mg/dL (0.2-1.0)
[2020-12-18 18:39] LABS: BILIRUBIN,URINE NEG (NEG); CLARITY,URINE HAZY; COLOR,URINE YELLOW; GLUCOSE,URINE NEG (NEG); NITRITE,URINE NEG (NEG); UROBILINOGEN,URINE 0.2 mg/dL (0.2 mg/dL)
[2020-12-18 18:40] LABS: BACTERIA,URINE FEW /HPF (0-FEW); RBC,URINE RARE /HPF (0-2); SQUAMOUS EPITHELIAL CELL,UR MOD /LPF; WBC,URINE OCC /HPF (0-4)
[2020-12-18] MEDS ORDERED: CEPH500T PO (18:50)
[2020-12-18] MEDS ORDERED: HYDR-2759 PO (18:50)
[2020-12-18] MEDS ORDERED: MORPHINE SULFATE 2 MG/ML DISP.SYRIN. IV ONE (19:00)
[2020-12-18] MEDS ORDERED: MORPHINE SULFATE 2 MG/ML DISP.SYRIN. ONE (19:01)
[2020-12-18 19:05] VITALS: BP 132/90
== END 2020-12-18 19:07 | disposition home or self-care (01) ==
LOC: ER 17:02
DX: K86.0 Alcohol-induced chronic pancreatitis (principal); J44.9 Chronic obstructive pulmonary disease, unspecified; K21.9 Gastro-esophageal reflux disease without esophagitis; F10.20 Alcohol dependence, uncomplicated; Z87.891 Personal history of nicotine dependence; Z98.51 Tubal ligation status; Z88.0 Allergy status to penicillin; Y90.9 Presence of alcohol in blood, level not specified
CPT/HCPCS: 36415; 74177; 80053; 81001; 83690; 84484; 85025; 87086; 96361; 96374; 96375; 99285; J2270; J2405; J3010; J7030; Q9967

== ENCOUNTER 2020-12-26 12:43 | Emergency (ER) | payer MEDICAID, OTHER ==
[~2020-12-26] VITALS: Ht 170.2 cm; Wt 58.0 kg
[~2020-12-26 12:43] MED LIST changes: +CEPH500T PO; +HYDR-2759 PO
[2020-12-26 13:03] VITALS: BP 164/101
[2020-12-26] MEDS ORDERED: MORPHINE SULFATE 4 MG/ML DISP.SYRIN. IV ONE (13:15)
[2020-12-26] MEDS ORDERED: ONDANSETRON PF 4 MG/2 ML VIAL. IVP ONE (13:15)
[2020-12-26] MEDS ORDERED: IV NORMAL SALINE 1,000ML 1,000 ML IV ONE (13:15)
--- NOTE | 2020-12-26 13:37 | PHYS DOC ---
Past History Past Medical History: Alcoholism, COPD, GERD, Pancreatitis Additional Past Medical Histor: SCOLIOSIS, DDD, KYPHOSIS, breast cancer, neuropathy Past Surgical History: No Surgical History Additional Past Surgical Histo: bilateral mastectomy Smoking: Greater than 1 pack/day Alcohol Use: None Drug Use: None General Adult EDM: Chief Complaint: ABDOMINAL PAIN HPI: HPI: Patient is a 55-year-old female who presents with left upper quadrant abdominal pain. Patient states that she was just discharged from the hospital after being admitted for pancreatitis. Patient states that pain started about a week ago again along with nausea. Patient states her last drink was 48 hours ago. Patient states "last time was here they started me on medication for a UTI, but I did not finish taking it because it made me sick to my stomach". Denies dysuria or frequency. Denies fever. Denies vomiting. Rates pain 12/28. Review of Systems: Review of Systems: Constitutional: Denies fever or chills Eyes: Denies change in visual acuity HENT: Denies nasal congestion or sore throat Respiratory: Denies cough or shortness of breath Cardiovascular: Denies chest pain or edema GI: Reports left upper quadrant abdominal pain, nausea. Denies vomiting or diarrhea : Denies dysuria Musculoskeletal: Denies back pain or joint pain Integument: Denies rash Neurologic: Denies headache, focal weakness or sensory changes Endocrine: Denies polyuria or polydipsia Lymphatic: Denies swollen glands Psychiatric: Denies depression or anxiety Current Medications: Current Meds: Current Medications Medications (Trade) Dose Ordered Sig/Travis Start Time Stop Time Status Last Admin Dose Admin Morphine Sulfate (Morphine 4mg Syringe) 4 mg 1X ONCE 12/26/20 13:15 12/26/20 13:16 DC Ondansetron HCl (Zofran) 4 mg 1X ONCE 12/26/20 13:15 12/26/20 13:16 DC Sodium Chloride 1,000 ml @ 1,000 mls/hr 1X ONCE 12/26/20 13:15 12/26/20 14:14 Allergies: Allergies: Allergies Coded Allergies Type Severity Reaction Last Updated Verified Sulfa (Sulfonamide Antibiotics) Allergy Intermediate N/V hives 03/22/20 Yes Physical Exam: PE: Constitutional: Well developed, well nourished, no acute distress, non-toxic appearance. [] HENT: Normocephalic, atraumatic, bilateral external ears normal, oropharynx moist, no oral exudates, nose normal. [] Eyes: PERRLA, EOMI, conjunctiva normal, no discharge. [] Neck: Normal range of motion, no tenderness, supple, no stridor. [] Cardiovascular:Heart rate regular rhythm, no murmur [] Lungs & Thorax: Bilateral breath sounds clear to auscultation [] Abdomen: Bowel sounds normal, soft, left upper quadrant tenderness, no masses, no pulsatile masses. [] Skin: Warm, dry, no erythema, no rash. [] Back: No tenderness, no CVA tenderness. [] Extremities: No tenderness, no cyanosis, no clubbing, ROM intact, no edema. [] Neurologic: Alert and oriented X 3, normal motor function, normal sensory function, no focal deficits noted. [] Psychologic: Affect normal, judgement normal, mood normal. [] Current Patient Data: Vital Signs: Vital Signs Date Time Temp Pulse Resp B/P (MAP) Pulse Ox O2 Delivery O2 Flow Rate FiO2 12/26/20 13:03 98.2 117 24 164/101 98 Room Air EKG: EKG: []Exam: CT abdomen/pelvis without intravenous contrast Indication: Left upper abdominal pain, history pancreatitis, stones or renal Comparison: CT abdomen pelvis 12/18/2020 Technique: Helical CT imaging performed of the abdomen and pelvis without the use of intravenous contrast. Sagittal and coronal reformats were obtained. One or more of the following individualized dose reduction techniques were utilized for this examination: 1. Automated exposure control 2. Adjustment of the mA and/or kV according to patient size 3. Use of iterative reconstruction technique. Findings: Inherently limited evaluation without intravenous contrast. Lower chest: There are bilateral breast implants. Capsular calcifications of the right implant, unchanged. There is emphysema or cystic changes in the anterior right middle lobe. Liver: Unremarkable noncontrast appearance of the liver. Gallbladder/Biliary Tree: Normal. Pancreas: The pancreas is unchanged in appearance with multiple calcifications, greatest in the pancreatic head, and mild dilation of the main pancreatic duct. A cystic lesion along the pancreatic tail in the lesser sac appears slightly smaller, now approximately 1 x 0.6 cm, previously 1.5 x 0.8 cm. No peripancreatic inflammation or new fluid collection. Spleen: Normal. Adrenal Glands: Normal Kidneys/Ureters/Bladder: Kidneys are normal size. No hydronephrosis or nephrolithiasis. Ureters unremarkable. Bladder is decompressed. Reproductive Organs: Uterus is anteverted. No adnexal mass. Stomach, small bowel, and colon: Stomach, small bowel, and colon are unremarkable. The appendix is normal. Vasculature: No aortic aneurysm. Mild calcified aortic atherosclerosis. Lymph Nodes: There is no lymphadenopathy. Peritoneum and retroperitoneum: No free fluid or free air. Bones: The bones are diffusely demineralized. There is no acute osseous abnormality. There is levoscoliosis of the lumbar spine. Impression: Findings of chronic pancreatitis. No CT evidence of acute pancreatit is. Slightly decreased cystic lesion along the pancreatic tail, likely a pseudocyst. Electronically signed by: Rebeca Cronin MD (12/26/2020 2:06 PM) [id number] Radiology/Procedures: Radiology/Procedures: [] Heart Score: C/O Chest Pain: No Risk Factors: Risk Factors: DM, Current or recent (<one month) smoker, HTN, HLP, family history of CAD, obesity. Risk Scores: Score 0 - 3: 2.5% MACE over next 6 weeks - Discharge Home Score 4 - 6: 20.3% MACE over next 6 weeks - Admit for Clinical Observation Score 7 - 10: 72.7% MACE over next 6 weeks - Early Invasive Strategies Course & Med Decision Making: Course & Med Decision Making Pertinent Labs and Imaging studies reviewed. (See chart for details) [] 55-year-old female presents with left upper quadrant pain, nausea. Patient has history of pancreatitis. Patient was discharged 2 weeks ago for same diagnosis. Patient is afebrile and hemodynamically stable. Labs are unremarkable. CT of abdomen and pelvis shows chronic pancreatitis. Patient reports that pain has improved since medication was administered. Sending patient home with hydrocodone and also Zofran. Patient will need to follow-up with her PCP tomorrow for further management. Patient given strict return precautions. Patient is hemodynamically stable upon dispo. Patient is appreciative and okay with discharge plan. Dragon Disclaimer: Conrad Disclaimer: This electronic medical record was generated, in whole or in part, using a voice recognition dictation system. Departure Departure: Impression: Primary Impression: Chronic pancreatitis Qualified Codes: K86.0 - Alcohol-induced chronic pancreatitis Additional Impression: Nausea Disposition: 01 HOME / SELF CARE / HOMELESS Condition: STABLE Referrals: DANA JULES MD (PCP) Patient Instructions: Acute Pancreatitis, [id number] Additional Instructions: You were seen in the emergency room for left upper abdominal pain and nausea. You were given nausea medication along with pain medication which improved your symptoms. All of your labs were unremarkable. CT of your abdomen showed chronic pancreatitis. Send you home with a couple of hydrocodone and Zofran to help with symptoms until you can follow-up with your PCP tomorrow. Please return to emergency room if you have worsening symptoms or concerns otherwise call PCP in the morning. EMERGENCY DEPARTMENT GENERAL DISCHARGE INSTRUCTIONS Thank you for coming to [facility] (ED) today and trusting us with you care. We trust that you had a positivie experience in our Emergency Department. If you wish to speak to the department management, you may call the director at [phone]. YOUR FOLLOW UP INSTRUCTIONS ARE FOLLOWS: 1. Do you have a private Doctor? If you do not have a private doctor, please ask for a resource list of physicians or clinics that may be able to assist you with follow up care. 2. The Emergency Physician has interpreted your x-rays. The X-Ray specialist will also review them. If there is a change in the findings, you will be notified in 48 hours when at all possible. 3. A lab test or culture has been done, your results will be reviewed and you will be notified if you need a change in treatment. ADDITIONAL INSTRUCTIONS AND INFORMATION: 1. Your care today has been supervised by a physician who is specially trained in emergency care. Many problems require more than one evaluation for a complete diagnosis a nd treatment. We recommend that you schedule your follow up appointment as recommended to ensure complete treatment of you illness or injury. If you are unable to obtain follow up care and continue to have a problem, or if your condition worsens, we recommend that you return to the ED. 2. We are not able to safely determine your condition over the phone nor are we able to give sound medical advice over the phone. For these safety reasons, if you call for medical advice we will ask you to come to the ED for further evaluation. 3. If you have any questions regarding these discharge instructions please call the ED at [phone]. SAFETY INFORMATION: In the interest of safety, wellness, and injury prevention; we encourage you to wear your sealbelt, if you smoke; quite smoking, and we encourage family to use a protective helmet for bicycling and other sporting events that present an increased risk for head injury. IF YOUR SYMPTOMS WORSEN OR NEW SYMPTOMS DEVELOP, OR YOU HAVE CONCERNS ABOUT YOUR CONDITION; OR IF YOUR CONDITION WORSENS WHILE YOU ARE WAITING FOR YOUR FOLLOW UP APPOINTMENT; EITHER CONTACT YOUR PRIMARY CARE DOCTOR, THE PHYSICIAN WHOSE NAME AND NUMBER YOU WERE GIVEN, OR RETURN TO THE ED IMMEDIATELY. Scripts Hydrocodone Bit/Acetaminophen (HYDROCODONE-APAP 5-325 ) 1 Each Tablet 1-2 TAB PO PRN Q6HRS PRN for PAIN for 2 Days, #8 TAB 0 Refills Prov: LUIZA ABEBE APRN 12/26/20 Ondansetron Hcl (ZOFRAN) 4 Mg Tablet 4 MG PO TID PRN PRN for NAUSEA for 7 Days, #9 TAB Prov: LUIZA ABEBE APRN 12/26/20 LUIZA ABEBE APRN Dec 26, 2020 13:37
--- NOTE | 2020-12-26 13:41 | EKG ---
[address] [address] Test Date: 2020-12-26 Test Time: 13:30:08 Pat Name: YUNI SCHUSTER Department: Room: Gender: F Public Information Officer: ENRIQUE : 1965 Requested By: LUIZA ABEBE Order Number: [id number] Reading MD: Measurements Intervals Aguirre Rate: 90 P: 60 MA: 142 QRS: 42 QRSD: 72 T: 62 QT: 364 QTc: 449 Interpretive Statements SINUS RHYTHM ATRIAL PREMATURE COMPLEX(ES) OTHERWISE NORMAL ECG RI6.02 No previous ECG available for comparison
[2020-12-26 13:44] LABS: BASO # 0.1 x10^3/uL (0.0-0.2); BASO % 1 % (0-3); EOS # 0.1 x10^3/uL (0.0-0.7); EOS % 1 % (0-3); LYMPH # 2.7 x10^3/uL (1.0-4.8); LYMPH % 29 % (24-48); MEAN CORPUSCULAR HEMOGLOBIN 34 pg (25-35); MEAN CORPUSCULAR HGB CONC 33 g/dL (31-37); MEAN CORPUSCULAR VOLUME 102 fL (79-100); MONO # 0.7 x10^3/uL (0.0-1.1); MONO % 7 % (0-9); NEUT % 63 % (31-73); PLATELET COUNT 403 x10^3/uL (140-400); RED BLOOD COUNT 4.14 x10^6/uL (3.50-5.40); RED CELL DISTRIBUTION WIDTH 15.1 % (11.5-14.5); WHITE BLOOD COUNT 9.5 x10^3/uL (4.0-11.0)
--- NOTE | 2020-12-26 14:08 | RAD ---
Exam: CT abdomen/pelvis without intravenous contrast Indication: Left upper abdominal pain, history pancreatitis, stones or renal Comparison: CT abdomen pelvis 12/18/2020 Technique: Helical CT imaging performed of the abdomen and pelvis without the use of intravenous cont rast. Sagittal and coronal reformats were obtained. One or more of the following individualized dose reduction techniques were utilized for this examinat ion: 1. Automated exposure control 2. Adjustment of the mA and/or kV according to patient size 3. Use of iterative reconstruction technique. Findings: Inherently limited evaluation without intravenous contrast. Lower chest: There are bilateral breast implants. Capsular calcifications of the right implant, uncha nged. There is emphysema or cystic changes in the anterior right middle lobe. Liver: Unremarkable noncontrast appearance of the liver. Gallbladder/Biliary Tree: Normal. Pancreas: The pancreas is unchanged in appearance with multiple calcifications, greatest in the pancr eatic head, and mild dilation of the main pancreatic duct. A cystic lesion along the pancreatic tail in the lesser sac appears slightly smaller, now approximately 1 x 0.6 cm, previously 1.5 x 0.8 cm. No peripancreatic inflammation or new fluid collection. Spleen: Normal. Adrenal Glands: Normal Kidneys/Ureters/Bladder: Kidneys are normal size. No hydronephrosis or nephrolithiasis. Ureters unrem arkable. Bladder is decompressed. Reproductive Organs: Uterus is anteverted. No adnexal mass. Stomach, small bowel, and colon: Stomach, small bowel, and colon are unremarkable. The appendix is no rmal. Vasculature: No aortic aneurysm. Mild calcified aortic atherosclerosis. Lymph Nodes: There is no lymphadenopathy. Peritoneum and retroperitoneum: No free fluid or free air. Bones: The bones are diffusely demineralized. There is no acute osseous abnormality. There is levosco liosis of the lumbar spine. Impression: Findings of chronic pancreatitis. No CT evidence of acute pancreatitis. Slightly decrease d cystic lesion along the pancreatic tail, likely a pseudocyst. Electronically signed by: Rebeca Cronin MD (12/26/2020 2:06 PM) [id number]
[2020-12-26 14:25] LABS: CALCIUM 8.4 mg/dL (8.5-10.1); CREATININE 0.5 mg/dL (0.6-1.0); GFR 128.1; POTASSIUM 3.7 mmol/L (3.5-5.1)
[2020-12-26 14:29] LABS: ALBUMIN 3.6 g/dL (3.4-5.0); ALBUMIN/GLOBULIN RATIO 1.1 (1.0-1.7); TOTAL BILIRUBIN 0.8 mg/dL (0.2-1.0); TOTAL PROTEIN 6.8 g/dL (6.4-8.2)
--- NOTE | 2020-12-26 14:39 | RAD ---
EXAM: AP View of the chest DATE: 12/26/2020 2:20 PM INDICATION: Reason: CHEST AND EPIGASTRIC ABD PAIN HX: BREAST CANCER-MATTHIAS MASTECTOMY / Spl. Instruction s: / History: COMPARISON: 12/07/2020 FINDINGS/ IMPRESSION: Right apical nodular opacity possibly loculated fluid collection. Calcified bilateral breast implants . Cardiomediastinal silhouette is stable. No lobar consolidation. No pleural effusion or pneumothorax. Electronically signed by: Jigar Riggins MD (12/26/2020 2:37 PM) ALLIE
[2020-12-26] MEDS ORDERED: ONDA4TAB7 PO (14:40)
[2020-12-26] MEDS ORDERED: HYDR-2155 PO (14:40)
[2020-12-26 15:03] LABS: BILIRUBIN,URINE NEG (NEG); CLARITY,URINE HAZY; COLOR,URINE YELLOW; GLUCOSE,URINE NEG (NEG); NITRITE,URINE NEG (NEG); UROBILINOGEN,URINE 0.2 mg/dL (0.2 mg/dL)
[2020-12-26 15:04] LABS: BACTERIA,URINE 0 /HPF (0-FEW); RBC,URINE RARE /HPF (0-2); SQUAMOUS EPITHELIAL CELL,UR MOD /LPF; WBC,URINE RARE /HPF (0-4)
== END 2020-12-26 15:04 | disposition home or self-care (01) ==
LOC: ER 12:43
DX: K86.0 Alcohol-induced chronic pancreatitis (principal); K21.9 Gastro-esophageal reflux disease without esophagitis; F17.210 Nicotine dependence, cigarettes, uncomplicated; J44.9 Chronic obstructive pulmonary disease, unspecified; F10.20 Alcohol dependence, uncomplicated; Z88.2 Allergy status to sulfonamides; Y90.9 Presence of alcohol in blood, level not specified
CPT/HCPCS: 36415; 71045; 74176; 80053; 81001; 83690; 85025; 87086; 93005; 96361; 96374; 96375; 99285; J2270; J2405; J7030

== ENCOUNTER 2021-04-19 14:01 | Emergency (ER) | payer MEDICAID ==
[~2021-04-19] VITALS: Ht 170.2 cm; Wt 59.1 kg
[~2021-04-19 14:01] MED LIST changes: -CYCL-331 PO; +CYCL10TA19 PO; +ONDA4TAB7 PO
--- NOTE | 2021-04-19 14:12 | PHYS DOC ---
Past History Past Medical History: Alcoholism, COPD, GERD, Pancreatitis Additional Past Medical Histor: SCOLIOSIS, DDD, KYPHOSIS, breast cancer, neuropathy Past Surgical History: No Surgical History Additional Past Surgical Histo: bilateral mastectomy Smoking: Greater than 1 pack/day Alcohol Use: None Drug Use: None Adult General Chief Complaint Chief Complaint: ABDOMINAL PAIN HPI HPI Patient is a 55-year-old female presenting via EMS for multiple complaints. States she has history of chronic pancreatitis and feels she has flared this up again. She has been more stressed at home and as a result admits she has been drinking with increased frequency. Last drink was hard liquor, approximately a pint yesterday evening. States she woke up this morning with generalized abdominal pain that is mostly midline and radiates to back similar to prior episodes of pancreatitis. She also notes she has had a productive cough and several episodes of bright red hematemesis, approximately 4 ounces in total, which is unusual for her. She states she has history of asthma and continues to smoke cigarettes daily but has been at baseline health but admits over past 3 days she has had URI symptoms with increased sputum production. She is not vaccinated against COVID-19. Denies any other significant medical issues, no recent travel or sick contacts. Review of Systems Review of Systems Fourteen body systems of review of systems have been reviewed. See HPI for pertinent positives and negative responses, other ansari all other systems are negative, non-pertinent or non-contributory Current Medications Current Medications Current Medications Medications (Trade) Dose Ordered Sig/Travis Start Time Stop Time Status Last Admin Dose Admin Sodium Chloride 1,000 ml @ 1,000 mls/hr Q1H 04/19/21 14:15 04/19/21 15:14 UNV Allergies Allergies Allergies Coded Allergies Type Severity Reaction Last Updated Verified Sulfa (Sulfonamide Antibiotics) Allergy Intermediate N/V hives 03/22/20 Yes Physical Exam Physical Exam Constitutional: Appears older than stated age, thin and appears malnourished, poor overall hygiene, nontoxic HENT: Normocephalic, atraumatic, bilateral external ears normal, oropharynx moist, no oral exudates, nose normal. Poor dentition globally Eyes: PERRLA, EOMI, conjunctiva normal, no discharge. Left lower eyelid with small sebaceous cyst present Neck: Normal range of motion, no tenderness, supple, no stridor. Cardiovascular: Heart rate regular, sinus rhythm, no murmurs rubs or gallops Lungs & Thorax: Bilateral breath sounds clear to auscultation Abdomen: Bowel sounds normal, soft, no tenderness, no masses, no pulsatile masses. Nonsurgical abdomen, no peritoneal signs Skin: Warm, dry, no erythema, no rash. Back: No tenderness, no CVA tenderness. Extremities: No tenderness, no cyanosis, no clubbing, ROM intact, no edema. Neurologic: Alert and oriented X 3, grossly normal motor & sensory function, no focal deficits noted. Psychologic: Affect normal, judgement normal, mood normal. Current Patient Data Vital Signs Vital Signs Date Time Temp Pulse Resp B/P (MAP) Pulse Ox O2 Delivery O2 Flow Rate FiO2 04/19/21 14:24 116 16 121/88 (99) 94 Room Air Vital Signs Date Time Temp Pulse Resp B/P (MAP) Pulse Ox O2 Delivery O2 Flow Rate FiO2 04/19/21 14:24 116 16 121/88 (99) 94 Room Air Lab Results Laboratory Tests Test 04/19/21 14:20 04/19/21 14:21 White Blood Count 7.4 x10^3/uL Red Blood Count 4.25 x10^6/uL Hemoglobin 13.9 g/dL Hematocrit 42.4 % Mean Corpuscular Volume 100 fL Mean Corpuscular Hemoglobin 33 pg Mean Corpuscular Hemoglobin Concent 33 g/dL Red Cell Distribution Width 21.2 % Platelet Count 287 x10^3/uL Neutrophils (%) (Auto) 59 % Lymphocytes (%) (Auto) 33 % Monocytes (%) (Auto) 7 % Eosinophils (%) (Auto) 1 % Basophils (%) (Auto) 0 % Neutrophils # (Auto) 4.4 x10^3uL Lymphocytes # (Auto) 2.4 x10^3/uL Monocytes # (Auto) 0.5 x10^3/uL Eosinophils # (Auto) 0.1 x10^3/uL Basophils # (Auto) 0.0 x10^3/uL Sodium Level 141 mmol/L Potassium Level 3.9 mmol/L Chloride Level 105 mmol/L Carbon Dioxide Level 21 mmol/L Anion Gap 15 Blood Urea Nitrogen 19 mg/dL Creatinine 0.8 mg/dL Estimated GFR (Cockcroft-Gault) 74.5 BUN/Creatinine Ratio 24 Glucose Level 91 mg/dL Calcium Level 8.7 mg/dL Total Bilirubin 0.4 mg/dL Aspartate Amino Transf (AST/SGOT) 28 U/L Alanine Aminotransferase (ALT/SGPT) 21 U/L Alkaline Phosphatase 135 U/L Troponin I High Sensitivity 6 ng/L Total Protein 7.4 g/dL Albumin 3.9 g/dL Albumin/Globulin Ratio 1.1 Lipase 943 U/L Ethyl Alcohol Level 112 mg/dL SARS-CoV-2 Antigen (Rapid) Negative Current Medications Medications (Trade) Dose Ordered Sig/Travis Route PRN Reason Start Time Stop Time Status Last Admin Dose Admin Sodium Chloride 1,000 ml @ 1,000 mls/hr Q1H IV 04/19/21 14:15 04/19/21 15:14 DC 04/19/21 14:27 Pantoprazole Sodium (Protonix Vial) 80 mg 1X ONCE IVP 04/19/21 14:15 04/19/21 14:18 DC 04/19/21 14:27 Iohexol (Omnipaque 300 Mg/ml) 75 ml 1X ONCE IV 04/19/21 14:15 04/19/21 14:16 Cancel Info (Do NOT chart on this entry -- for MONITORING) 1 each PRN DAILY PRN MC SEE COMMENTS 04/19/21 14:30 04/21/21 14:29 Iohexol (Omnipaque 350 Mg/ml) 100 ml 1X ONCE IV 04/19/21 14:30 04/19/21 14:31 DC 04/19/21 14:49 EKG EKG EKG ordered and interpreted by myself at 1415 hrs. as sinus tachycardia at 118 bpm, unremarkable intervals, no axis deviation, no obvious ischemic findings, no STEMI Radiology/Procedures Radiology/Procedures Exam: CT of chest, abdomen and pelvis with contrast INDICATION: Epigastric pain with hematemesis TECHNIQUE: Sequential axial images through the chest, abdomen and pelvis obtained following the administration of 100 mL of Isovue-370 IV contrast. Sagittal and coronal reformatted images were reconstructed from the axial data and reviewed. 3-D reformatted images were reconstructed from the axial data and reviewed. Exposure: One or more of the following in the visualized dose reduction techniques were utilized for this examination: 1. Automated exposure control 2. Adjustment of the MA and/or KV according to patient size 3. Use of iterative of reconstructive technique Comparisons: Chest x-ray same day FINDINGS: Visualized portions of the thyroid are unremarkable. No enlarged mediastinal lymph nodes are identified. Heart size is normal. No pericardial effusion. Thoracic aorta has a normal course and caliber. Pulmonary artery is not enlarged. No pulmonary embolus identified within the main, lobar or segmental pulmonary arteries. Airways are patent. Mucous plugging noted at the lower lobes bilaterally. No consolidation or pneumothorax. Moderate centrilobular emphysematous change noted the upper lungs. No pleural effusion or thickening. Diffuse hepatic steatosis. Spleen, adrenals and gallbladder are unremarkable. There is mild pancreatic ductal dilatation diffusely. Pancreatic calcifications noted particularly at the pancreatic head. No perinephric inflammation or hydronephrosis. No renal or ureteral calculi are identified. Bladder is partially distended and not well evaluated. Uterus is nonenlarged. No abnormal adnexal mass. Moderate amount of stool is noted throughout the colon. Appendix is is not identified. No free intra-abdominal air or fluid. No obstruction. Abdominal aorta has normal course and caliber. Abdominal vasculature is patent. No enlarged intra-abdominal lymph nodes are identified. No suspicious osseous lesions or acute fractures. IMPRESSION: 1. No pulmonary embolus identified within the main, lobar or segmental pulmonary arteries. 2. Moderate amount of stool noted in the colon, correlate for constipation. 3. Diffuse hepatic steatosis. 4. Pancreatic ductal dilatation, which appears similar compared to prior exams, may relate to sequela of chronic pancreatitis. 5. Emphysematous change noted throughout the lungs. Correlate with patient's risk factors to determine the appropriateness for annual lung cancer screening. https://www.uspreventiveservicestaskforce.org/uspstf/recommendation/lung-cancer- screening Electronically signed by: Janette Delgado MD (04/19/2021 3:12 PM) [facility] Heart Score C/O Chest Pain: No HEART Score for Chest Pain: HEART Score for Chest Pain Response (Comments) Value History Slighlty/Non-Suspicious 0 ECG Normal 0 Age >45 - < 65 1 Risk Factors 1 or 2 Risk Factors 1 Troponin < Normal Limit 0 Total 2 Risk Factors: Risk Factors: DM, Current or recent (<one month) smoker, HTN, HLP, family history of CAD, obesity. Risk Scores: Risk Factors: DM, Current or recent (<one month) smoker, HTN, HLP, family history of CAD, obesity. Course & Med Decision Making Course & Med Decision Making Airway patent, breathing unlabored, IV access and vitals obtained concerning for tachycardia only HPI physical exam comprehensive ER work-up nonconcerning for any emergent or surgical issues Patient symptoms improved with administered IV fluid, IV Protonix and 100 mcg fentanyl administered by EMS prior to arrival I disclosed entirety of ER findings with patient. I discussed findings of likely chronic pancreatitis due to ongoing alcohol abuse. Also disclosed finding of moderate constipation likely due to ongoing narcotic use. Patient unvaccinated and PUI Covid Discussed patient's symptoms likely due to ongoing alcohol dependence and NSAID abuse is she reports ongoing chronic pain and utilizes 800 mg ibuprofen at numerous frequencies daily. States she is likely suffering from alcoholic gastritis versus other I disclosed this might be an acute presentation more concerning pathology but patient reports feeling better and wanted to go home. I requested urine sample but patient deferred As such, joint decision made to discharge home with new prescription for PPI and instructions to completely stop NSAID use and cut back alcohol use Dragon Disclaimer Dragon Disclaimer This electronic medical record was generated, in whole or in part, using a voice recognition dictation system. Departure Departure: Impression: Primary Impression: Abdominal pain Additional Impressions: Chronic pancreatitis Alcohol dependence Constipation Disposition: HOME / SELF CARE / HOMELESS Condition: STABLE Referrals: DANA JULES MD (PCP) Additional Instructions: You were seen for abdominal pain. We are putting you on a medication to reduce your stomach acid levels. You should avoid alcohol, spicy foods, or NSAIDs as these can exacerbate your symptoms. You should also start a daily stool softener given your constipation that is likely due to diet in fact that you take some medications that predispose you to constipation. You should follow up with the medicine clinic or your primary medical doctor for further evaluation and treatment. Return to the ED if you develop worsening pain, fever, black or bloody stools, or any other new or concerning symptoms. The medicine we started you on can take a few days to work fully. Scripts Pantoprazole Sodium (PROTONIX) 40 Mg Tablet. 1 TAB PO DAILY for stomach issues, #30 TAB 0 Refills Prov: SISI RAMIRES DO 04/19/21 Problem Qualifiers SISI RAMIRES DO Apr 19, 2021 14:12
[2021-04-19] MEDS ORDERED: PANTOPRAZOLE IV 40 MG VIAL. IVP ONE (14:15)
[2021-04-19] MEDS ORDERED: IOHEXOL 300 MG/ML 75 ML VIAL. IV ONE (14:15)
[2021-04-19] MEDS ORDERED: IV NORMAL SALINE 1,000ML 1,000 ML IV SCH (14:15)
[2021-04-19] MEDS ORDERED: CONTRAST GIVEN. MC PRN (14:30)
[2021-04-19] MEDS ORDERED: IOHEXOL 350 MG/ML 100 ML VIAL. IV ONE (14:30)
[2021-04-19 14:45] LABS: BASO % 0 % (0-3); EOS # 0.1 x10^3/uL (0.0-0.7); EOS % 1 % (0-3); HEMATOCRIT 42.4 % (36.0-47.0); HEMOGLOBIN 13.9 g/dL (12.0-15.5); LYMPH # 2.4 x10^3/uL (1.0-4.8); LYMPH % 33 % (24-48); MEAN CORPUSCULAR HEMOGLOBIN 33 pg (25-35); MEAN CORPUSCULAR HGB CONC 33 g/dL (31-37); MEAN CORPUSCULAR VOLUME 100 fL (79-100); MONO # 0.5 x10^3/uL (0.0-1.1); MONO % 7 % (0-9); NEUT # 4.4 x10^3uL (1.8-7.7); NEUT % 59 % (31-73); PLATELET COUNT 287 x10^3/uL (140-400); RED BLOOD COUNT 4.25 x10^6/uL (3.50-5.40); RED CELL DISTRIBUTION WIDTH 21.2 % (11.5-14.5); WHITE BLOOD COUNT 7.4 x10^3/uL (4.0-11.0)
[2021-04-19 14:54] LABS: CALCIUM 8.7 mg/dL (8.5-10.1); CREATININE 0.8 mg/dL (0.6-1.0); GFR 74.5; POTASSIUM 3.9 mmol/L (3.5-5.1)
[2021-04-19 15:07] LABS: ALBUMIN 3.9 g/dL (3.4-5.0); ALBUMIN/GLOBULIN RATIO 1.1 (1.0-1.7); TOTAL BILIRUBIN 0.4 mg/dL (0.2-1.0); TOTAL PROTEIN 7.4 g/dL (6.4-8.2)
--- NOTE | 2021-04-19 15:14 | RAD ---
Exam: CT of chest, abdomen and pelvis with contrast INDICATION: Epigastric pain with hematemesis TECHNIQUE: Sequential axial images through the chest, abdomen and pelvis obtained following the admin istration of 100 mL of Isovue-370 IV contrast. Sagittal and coronal reformatted images were reconstru cted from the axial data and reviewed. 3-D reformatted images were reconstructed from the axial data and reviewed. Exposure: One or more of the following in the visualized dose reduction techniques were utilized for this examination: 1. Automated exposure control 2. Adjustment of the MA and/or KV according to patient size 3. Use of iterative of reconstructive technique Comparisons: Chest x-ray same day FINDINGS: Visualized portions of the thyroid are unremarkable. No enlarged mediastinal lymph nodes are identifi ed. Heart size is normal. No pericardial effusion. Thoracic aorta has a normal course and caliber. Pulmon maury artery is not enlarged. No pulmonary embolus identified within the main, lobar or segmental pulmo nary arteries. Airways are patent. Mucous plugging noted at the lower lobes bilaterally. No consolidation or pneumot horax. Moderate centrilobular emphysematous change noted the upper lungs. No pleural effusion or thickening. Diffuse hepatic steatosis. Spleen, adrenals and gallbladder are unremarkable. There is mild pancreati c ductal dilatation diffusely. Pancreatic calcifications noted particularly at the pancreatic head. No perinephric inflammation or hydronephrosis. No renal or ureteral calculi are identified. Bladder is partially distended and not well evaluated. Uterus is nonenlarged. No abnormal adnexal mas s. Moderate amount of stool is noted throughout the colon. Appendix is is not identified. No free intra- abdominal air or fluid. No obstruction. Abdominal aorta has normal course and caliber. Abdominal vasculature is patent. No enlarged intra-abdominal lymph nodes are identified. No suspicious osseous lesions or acute fractures. IMPRESSION: 1. No pulmonary embolus identified within the main, lobar or segmental pulmonary arteries. 2. Moderate amount of stool noted in the colon, correlate for constipation. 3. Diffuse hepatic steatosis. 4. Pancreatic ductal dilatation, which appears similar compared to prior exams, may relate to sequel a of chronic pancreatitis. 5. Emphysematous change noted throughout the lungs. Correlate with patient's risk factors to determi ne the appropriateness for annual lung cancer screening. https://www.uspreventiveservicestaskforce.org/uspstf/recommendation/myex-marrxk-havwohtxb Electronically signed by: Janette Delgado MD (04/19/2021 3:12 PM) [facility]
[2021-04-19] MEDS ORDERED: PANT40TA3 PO (15:37)
--- NOTE | 2021-04-19 16:18 | EKG ---
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
[2021-04-19 16:34] VITALS: BP 149/93
[2021-04-19 18:02] LABS: ANISOCYTOSIS MOD; PLT ESTIMATE ADEQUATE (ADEQUATE)
--- NOTE | 2021-04-23 11:09 | NUR ---
patient notified of covid result
== END 2021-04-19 16:34 | disposition home or self-care (01) ==
LOC: ER 14:01
DX: K86.1 Other chronic pancreatitis (principal); K59.00 Constipation, unspecified; F10.20 Alcohol dependence, uncomplicated; J44.9 Chronic obstructive pulmonary disease, unspecified; K21.9 Gastro-esophageal reflux disease without esophagitis; Z20.822 Contact with and (suspected) exposure to COVID-19; Z87.891 Personal history of nicotine dependence; Z88.2 Allergy status to sulfonamides; Y90.5 Blood alcohol level of 100-119 mg/100 ml
CPT/HCPCS: 71275; 74177; 80053; 83690; 84484; 85025; 87426; 93005; 96361; 96374; 99285; C9113; C9803; G0480; J7030; Q9967; U0003

== ENCOUNTER 2021-05-22 18:32 | Emergency (ER) | payer MEDICAID ==
[~2021-05-22] VITALS: Ht 170.2 cm; Wt 60.0 kg
[~2021-05-22 18:32] MED LIST changes: +AZIT250T6 PO; +PANT40TA3 PO
--- NOTE | 2021-05-22 19:39 | PHYS DOC ---
Past History Past Medical History: Alcoholism, COPD, GERD, Pancreatitis Additional Past Medical Histor: SCOLIOSIS, DDD, KYPHOSIS, breast cancer, neuropathy Past Surgical History: Hysterectomy Additional Past Surgical Histo: double mastectomy; breast reconstruction Smoking: Greater than 1 pack/day Alcohol Use: Occasionally Drug Use: None General Adult EDM: Chief Complaint: MULTIPLE COMPLAINTS HPI: HPI: 56-year-old female who has been Covid positive for 11 days presents with epigastric abdominal pain. The patient has a history of pancreatitis and thinks that she is having a flareup. She is unable to eat or drink without significant pain. Patient has also had a bleeding ulcer and is taking Protonix daily. She is still feels generally ill and fatigued from her Covid. She was not vaccinated. She denies any fever or chills. Review of Systems: Review of Systems: Constitutional: Denies fever or chills. Body aches, fatigue. Eyes: Denies change in visual acuity HENT: Denies nasal congestion or sore throat Respiratory: Cough without shortness of breath Cardiovascular: Denies chest pain or edema GI: Epigastric abdominal pain, nausea, vomiting. : Denies dysuria Musculoskeletal: Denies back pain or joint pain Integument: Denies rash Neurologic: Denies headache, focal weakness or sensory changes Endocrine: Denies polyuria or polydipsia Lymphatic: Denies swollen glands Psychiatric: Denies depression or anxiety Current Medications: Current Meds: Current Medications Medications (Trade) Dose Ordered Sig/[facility] Start Time Stop Time Status Last Admin Dose Admin Morphine Sulfate (Morphine 4mg Syringe) 4 mg 1X ONCE 05/22/21 19:30 05/22/21 19:31 UNV Ondansetron HCl (Zofran) 4 mg 1X ONCE 05/22/21 19:30 05/22/21 19:31 UNV Sodium Chloride 1,000 ml @ 1,000 mls/hr 1X ONCE 05/22/21 19:30 05/22/21 20:29 UNV Allergies: Allergies: Allergies Coded Allergies Type Severity Reaction Last Updated Verified Sulfa (Sulfonamide Antibiotics) Allergy Intermediate N/V hives 05/22/21 Yes Physical Exam: PE: Constitutional: Well developed, well nourished, no acute distress, non-toxic appearance. [] HENT: Normocephalic, atraumatic, bilateral external ears normal, oropharynx moist, no oral exudates, nose normal. [] Eyes: PERRLA, EOMI, conjunctiva normal, no discharge. [] Neck: Normal range of motion, no tenderness, supple, no stridor. [] Cardiovascular: Heart rate regular rhythm, no murmur [] Lungs & Thorax: Bilateral breath sounds clear to auscultation [] Abdomen: Bowel sounds normal, soft, epigastric tenderness, no masses, no pulsatile masses. [] Skin: Warm, dry, no erythema, no rash. [] Back: No tenderness, no CVA tenderness. [] Extremities: No tenderness, no cyanosis, no clubbing, ROM intact, no edema. [] Neurologic: Alert and oriented X 3, normal motor function, normal sensory function, no focal deficits noted. [] Psychologic: Affect normal, judgement normal, mood normal. [] Current Patient Data: Vital Signs: Vital Signs Date Time Temp Pulse Resp B/P (MAP) Pulse Ox O2 Delivery O2 Flow Rate FiO2 05/22/21 19:31 97.7 125 20 165/103 (123) 94 Room Air EKG: EKG: [] Radiology/Procedures: Radiology/Procedures: [] Heart Score: C/O Chest Pain: N/A Risk Factors: Risk Factors: DM, Current or recent (<one month) smoker, HTN, HLP, family history of CAD, obesity. Risk Scores: Score 0 - 3: 2.5% MACE over next 6 weeks - Discharge Home Score 4 - 6: 20.3% MACE over next 6 weeks - Admit for Clinical Observation Score 7 - 10: 72.7% MACE over next 6 weeks - Early Invasive Strategies Course & Med Decision Making: Course & Med Decision Making Pertinent Labs and Imaging studies reviewed. (See chart for details) The patient's labs are significant for an elevated lipase of 557. This is improved from some of the patient's previous lipases. X-ray is negative for acute findings. I have given her morphine and Dilaudid for her pain. I have advised that she not he did have the pain improved. She should start with clears and slowly reintroduce her diet. I do not believe she has to be admitted to the hospital. I will discharge her with hydrocodone pain medication. She is stable for discharge at this time. [] Conrad Disclaimer: Conrad Disclaimer: This electronic medical record was generated, in whole or in part, using a voice recognition dictation system. Departure Departure: Impression: Primary Impression: Acute pancreatitis Disposition: HOME / SELF CARE / HOMELESS Condition: STABLE Referrals: DANA JULES MD (PCP) Patient Instructions: Acute Pancreatitis, [id number] Scripts Hydrocodone Bit/Acetaminophen (HYDROCODONE-APAP 7.5-325 ) 1 Each Tablet 1 TAB PO PRN Q6HRS PRN for PAIN, #12 TAB 0 Refills Prov: COLT SALINAS DO 05/22/21 COLT SALINAS DO May 22, 2021 19:39
[2021-05-22] MEDS ORDERED: IV NORMAL SALINE 1,000ML 1,000 ML IV ONE (20:00)
[2021-05-22] MEDS ORDERED: ONDANSETRON PF 4 MG/2 ML VIAL. IVP ONE (20:00)
[2021-05-22] MEDS ORDERED: MORPHINE SULFATE 4 MG/ML DISP.SYRIN. IV ONE (20:00)
[2021-05-22 20:22] LABS: BASO % 1 % (0-3); EOS # 0.1 x10^3/uL (0.0-0.7); EOS % 1 % (0-3); HEMATOCRIT 41.1 % (36.0-47.0); HEMOGLOBIN 13.5 g/dL (12.0-15.5); LYMPH # 1.9 x10^3/uL (1.0-4.8); LYMPH % 27 % (24-48); MEAN CORPUSCULAR HEMOGLOBIN 35 pg (25-35); MEAN CORPUSCULAR HGB CONC 33 g/dL (31-37); MEAN CORPUSCULAR VOLUME 105 fL (79-100); MONO # 0.6 x10^3/uL (0.0-1.1); MONO % 9 % (0-9); NEUT # 4.4 x10^3uL (1.8-7.7); NEUT % 62 % (31-73); PLATELET COUNT 431 x10^3/uL (140-400); RED BLOOD COUNT 3.92 x10^6/uL (3.50-5.40); RED CELL DISTRIBUTION WIDTH 20.4 % (11.5-14.5)
[2021-05-22 20:45] LABS: PLT ESTIMATE INCREASED (ADEQUATE)
[2021-05-22 20:46] LABS: ANISOCYTOSIS SLIGHT
[2021-05-22 20:55] LABS: ALBUMIN 3.2 g/dL (3.4-5.0); CALCIUM 8.5 mg/dL (8.5-10.1); CREATININE 0.6 mg/dL (0.6-1.0); GFR 103.4; TOTAL BILIRUBIN 0.5 mg/dL (0.2-1.0); TOTAL PROTEIN 6.5 g/dL (6.4-8.2)
[2021-05-22] MEDS ORDERED: HYDROmorphone PF 1 MG/ML DISP.SYRIN IVP ONE (21:45)
[2021-05-22] MEDS ORDERED: HYDR-2765 PO (22:21)
[2021-05-22 22:28] VITALS: BP 149/99
[2021-05-22] MEDS ORDERED: HYDROcodone/APAP 7.5/325MG 1 TAB TABLET PO ONE (23:00)
--- NOTE | 2021-05-23 06:05 | RAD ---
EXAM: AP View of the chest DATE: 05/22/2021 7:42 PM INDICATION: Reason: COVID-19 / Spl. Instructions: / History: COMPARISON: 05/11/2021 12/26/2020 FINDINGS/ IMPRESSION: Cardiomediastinal silhouette is stable. Patchy ground glass opacities bilaterally, greater in the low er lungs, marginally progressed compared to 05/11/2021. Cystic area in the right upper lung is again seen. No pleural effusion or pneumothorax. Electronically signed by: Jigar Riggins MD (05/23/2021 6:02 AM) [facility]
[2021-05-23] MEDS ORDERED: CYCL10TA19 PO (20:51)
[2021-05-23] MEDS ORDERED: ACET325T9 PO (21:42)
[2021-05-23] MEDS ORDERED: MOME13HF2 INH (21:42)
== END 2021-05-22 22:45 | disposition home or self-care (01) ==
LOC: ER 18:32
DX: K85.90 Acute pancreatitis without necrosis or infection, unspecified (principal); F10.20 Alcohol dependence, uncomplicated; J44.9 Chronic obstructive pulmonary disease, unspecified; K21.9 Gastro-esophageal reflux disease without esophagitis; Z87.891 Personal history of nicotine dependence; Z90.710 Acquired absence of both cervix and uterus; Z88.2 Allergy status to sulfonamides; Y90.9 Presence of alcohol in blood, level not specified
CPT/HCPCS: 36415; 71045; 80053; 83690; 85025; 96361; 96374; 96375; 99284; J1170; J2270; J2405; J7030

== ENCOUNTER 2021-05-23 14:28 | Inpatient (IN) | payer MEDICAID ==
[~2021-05-23] VITALS: Ht 170.2 cm; Wt 59.4 kg
[~2021-05-23 14:28] MED LIST changes: +HYDR-2765 PO
[2021-05-23] MEDS ORDERED: IOHEXOL 350 MG/ML 100 ML VIAL. IV ONE (14:45)
[2021-05-23] MEDS ORDERED: MORPHINE SULFATE 4 MG/ML DISP.SYRIN. IV ONE (14:45)
[2021-05-23] MEDS ORDERED: IV NORMAL SALINE 1,000ML 1,000 ML IV SCH (14:45)
[2021-05-23] MEDS ORDERED: IOHEXOL 350 MG/ML 100 ML VIAL. ONE (14:45)
--- NOTE | 2021-05-23 14:50 | PHYS DOC ---
Past History Past Medical History: Alcoholism, COPD, GERD, Pancreatitis Additional Past Medical Histor: SCOLIOSIS, DDD, KYPHOSIS, breast cancer, neuropathy Past Surgical History: Hysterectomy Additional Past Surgical Histo: double mastectomy; breast reconstruction Smoking: Greater than 1 pack/day Alcohol Use: None Drug Use: None General Adult HPI: HPI: Patient is a 56-year-old female who presents to the emergency department for left upper quadrant pain with nausea that started 3 days ago. Patient has a history of chronic pancreatitis states that this feels like her chronic pancreatitis. Patient was seen yesterday in the emergency department did have an elevated lipase was discharged home with pain medication and diet restrictions. Patient is also Covid positive. She reports shortness of breath and a cough. It appears that they did a chest x-ray yesterday that showed mild pneumonia. Patient denies any vomiting, diarrhea, blood in her stools or vomit, fevers. Review of Systems: Review of Systems: Constitutional: see HPI Respiratory:see HPI GI: see HPI :see HPI Current Medications: Current Meds: Current Medications Medications (Trade) Dose Ordered Sig/Travis Start Time Stop Time Status Last Admin Dose Admin Info (Do NOT chart on this entry -- for MONITORING) 1 each PRN DAILY PRN 05/23/21 15:00 05/25/21 14:59 Iohexol (Omnipaque 350 Mg/ml) 100 ml STK-MED ONCE 05/23/21 14:45 05/23/21 14:45 DC Morphine Sulfate (Morphine 4mg Syringe) 4 mg 1X ONCE 05/23/21 14:45 05/23/21 14:46 DC Sodium Chloride 1,000 ml @ 1,000 mls/hr Q1H 05/23/21 14:45 05/23/21 15:44 Allergies: Allergies: Allergies Coded Allergies Type Severity Reaction Last Updated Verified Sulfa (Sulfonamide Antibiotics) Allergy Intermediate N/V hives 05/22/21 Yes Physical Exam: PE: Constitutional: Well developed, well nourished, no acute distress, non-toxic appearance. [] HENT: Normocephalic, atraumatic, bilateral external ears normal, oropharynx moist, no oral exudates, nose normal. [] Eyes: PERRL, EOMI, conjunctiva normal, no discharge. [] Neck: Normal range of motion, no tenderness, supple, no stridor. [] Cardiovascular:Heart rate regular rhythm, no murmur [] Lungs & Thorax: Bilateral breath sounds clear to auscultation [] Abdomen: Bowel sounds normal, soft, luq pain with palpation, no rebound tenderness, no rigidity or guarding, no masses, no pulsatile masses. [] Skin: Warm, dry, no erythema, no rash. [] Back: No tenderness, no CVA tenderness. [] Extremities: No tenderness, no cyanosis, no clubbing, ROM intact, no edema. [] Neurologic: Alert and oriented X 3, normal motor function, normal sensory function, no focal deficits noted. [] Psychologic: Affect normal, judgement normal, mood normal. [] Current Patient Data: Labs: Laboratory Tests Test 05/23/21 15:32 White Blood Count 7.3 x10^3/uL Red Blood Count 3.47 x10^6/uL Hemoglobin 12.1 g/dL Hematocrit 35.7 % Mean Corpuscular Volume 103 fL Mean Corpuscular Hemoglobin 35 pg Mean Corpuscular Hemoglobin Concent 34 g/dL Red Cell Distribution Width 21.0 % Platelet Count 447 x10^3/uL Neutrophils (%) (Auto) 67 % Lymphocytes (%) (Auto) 24 % Monocytes (%) (Auto) 8 % Eosinophils (%) (Auto) 1 % Basophils (%) (Auto) 1 % Neutrophils # (Auto) 4.9 x10^3uL Lymphocytes # (Auto) 1.7 x10^3/uL Monocytes # (Auto) 0.6 x10^3/uL Eosinophils # (Auto) 0.1 x10^3/uL Basophils # (Auto) 0.0 x10^3/uL Sodium Level 138 mmol/L Potassium Level 2.8 mmol/L Chloride Level 103 mmol/L Carbon Dioxide Level 27 mmol/L Anion Gap 8 Blood Urea Nitrogen 12 mg/dL Creatinine 0.5 mg/dL Estimated GFR (Cockcroft-Gault) 127.6 BUN/Creatinine Ratio 24 Glucose Level 89 mg/dL Calcium Level 8.1 mg/dL Total Bilirubin 0.4 mg/dL Aspartate Amino Transf (AST/SGOT) 31 U/L Alanine Aminotransferase (ALT/SGPT) 20 U/L Alkaline Phosphatase 121 U/L Total Protein 6.2 g/dL Albumin 2.8 g/dL Albumin/Globulin Ratio 0.8 Lipase 691 U/L Current Medications Medications (Trade) Dose Ordered Sig/Travis Route PRN Reason Start Time Stop Time Status Last Admin Dose Admin Sodium Chloride 1,000 ml @ 1,000 mls/hr Q1H IV 05/23/21 14:45 05/23/21 15:44 DC 05/23/21 15:34 Morphine Sulfate (Morphine 4mg Syringe) 4 mg 1X ONCE IV 05/23/21 14:45 05/23/21 14:46 DC 05/23/21 15:34 Iohexol (Omnipaque 350 Mg/ml) 100 ml 1X ONCE IV 05/23/21 14:45 05/23/21 14:46 DC 05/23/21 14:59 Info (Do NOT chart on this entry -- for MONITORING) 1 each PRN DAILY PRN MC SEE COMMENTS 05/23/21 15:00 05/25/21 14:59 Iohexol (Omnipaque 350 Mg/ml) 100 ml STK-MED ONCE .ROUTE 05/23/21 14:45 05/23/21 14:45 DC Potassium Chloride 100 ml @ 100 mls/hr Q1H IV 05/23/21 16:15 05/23/21 20:14 Ondansetron HCl (Zofran) 4 mg PRN Q4HRS PRN IVP NAUSEA/VOMITING 05/23/21 16:15 05/24/21 16:14 Morphine Sulfate (Morphine 2mg Syringe) 2 mg PRN Q2HR PRN IVP PAIN 05/23/21 16:15 05/24/21 16:14 05/23/21 16:44 Sodium Chloride 1,000 ml @ 100 mls/hr Q10H IV 05/23/21 16:15 05/24/21 16:14 EKG: EKG: EKG performed by ER staff at 1704 shows sinus rhythm with a heart rate of 83, QTC of 455, no STEMI read by Dr. Andrade at 1709. [] Radiology/Procedures: Radiology/Procedures: [] Heart Score: C/O Chest Pain: N/A Risk Factors: Risk Factors: DM, Current or recent (<one month) smoker, HTN, HLP, family history of CAD, obesity. Risk Scores: Score 0 - 3: 2.5% MACE over next 6 weeks - Discharge Home Score 4 - 6: 20.3% MACE over next 6 weeks - Admit for Clinical Observation Score 7 - 10: 72.7% MACE over next 6 weeks - Early Invasive Strategies Course & Med Decision Making: Course & Med Decision Making Pertinent Labs and Imaging studies reviewed. (See chart for details) [] Patient presents to the emergency department for left upper quadrant pain and nausea. Patient is also Covid positive and reporting shortness of breath and a cough. Patient did have a chest x-ray performed yesterday that showed patchy groundglass opacities. Work-up in the ER consisted of blood work, urinalysis and imaging of abdomen and pelvis. Patient was treated with IV fluids and pain medication. Patient was noted to have hypokalemia. Lipase is elevated in comparison to her lipase from yesterday. CT scan of abdomen does show pancreatitis. I discussed patient's case with Dr. Gómez who agreed to admit the patient for acute on chronic pancreatitis and hypokalemia. Nausea, pain medication ordered for patient as well as IV fluids and potassium replacement. NPO ordered. I discussed these findings with patient and she is agreeable to care plan. ER bridge orders placed 1711. Conrad Disclaimer: Conrad Disclaimer: This electronic medical record was generated, in whole or in part, using a voice recognition dictation system. Departure Departure: Impression: Primary Impression: Acute on chronic pancreatitis Additional Impression: Hypokalemia Disposition: ADMITTED INPATIENT Admitting Physician: Isela Gómez Condition: STABLE Referrals: DANA JULES MD (PCP) CORDELIA CARDOZO APRN May 23, 2021 14:50
[2021-05-23] MEDS ORDERED: CONTRAST GIVEN. MC PRN (15:00)
--- NOTE | 2021-05-23 15:33 | RAD ---
INDICATION: Reason: abdominal pain, hx pancreatitis / Spl. Instructions: / History: COMPARISON: April 19, 2021 TECHNIQUE: Axial CT images were obtained through the abdomen and pelvis with intravenous contrast. One or more of the following individualized dose reduction techniques were utilized for this examinat ion: 1. Automated exposure control; 2. Adjustment of the mA and/or kV according to patient size; 3 . Use of iterative reconstruction technique. FINDINGS: The partially visualized lung bases there is some patchy opacities. Partial visualization of calcified capsule of the right breast implant. Vascular: Multifocal plaque throughout the vasculature. Hepatobiliary: Liver is low density which can be seen with fatty infiltration. Pancreas: There is some haziness to the fat seen adjacent to the pancreatic head and uncinate process as well as the distal aspect of the stomach and proximal duodenum. Calcifications are seen at the pa ncreas. Fullness of the pancreatic head and uncinate process. There is some nodularity also seen ante rior to the pancreatic uncinate process abutting the stomach and proximal duodenum measuring up to 15 mm with central low density. Dilatation of pancreatic duct is seen. Spleen: Spleen unremarkable. Renal/Bladder: Urinary bladder is largely decompressed with minimal urine within. Prominence of the w all although limited evaluation secondary to lack of distention. No hydronephrosis. Gastrointestinal: Colonic diverticulosis. No dilated loops of bowel to suggest obstruction. Degenerative changes of left greater than right hip. Scoliotic curvature the spine. IMPRESSION: * Prominent size of the pancreatic head and uncinate process with adjacent edema to the fat. Could be from causes such as pancreatitis but would obtain a follow-up to ensure that this decreases to exc lude superimposed mass in the area. This includes a region adjacent to the pancreas and distal stomac h which could be secondary to a developing small fluid collection in the region but follow-up could b e obtained to ensure it regresses to exclude a persistent mass contributing. * There is also some edema and prominence of the wall the distal aspect of the stomach and duodenum which could be secondary to the adjacent pancreatitis but duodenitis/gastritis or ulcer is also not e xcluded. * Prominence of the pancreatic duct is seen which can be sequela of pancreatitis. There is also calc ifications at the pancreas which can be from chronic pancreatitis. * Patchy opacities at the lung bases which could be infectious in nature but attention on follow-up to exclude a persistent nodule. * Atherosclerotic disease. Electronically signed by: Roland Hawkins MD (05/23/2021 3:31 PM) [id number]
[2021-05-23 15:55] LABS: BASO % 1 % (0-3); EOS # 0.1 x10^3/uL (0.0-0.7); EOS % 1 % (0-3); HEMATOCRIT 35.7 % (36.0-47.0); HEMOGLOBIN 12.1 g/dL (12.0-15.5); LYMPH # 1.7 x10^3/uL (1.0-4.8); LYMPH % 24 % (24-48); MEAN CORPUSCULAR HEMOGLOBIN 35 pg (25-35); MEAN CORPUSCULAR HGB CONC 34 g/dL (31-37); MEAN CORPUSCULAR VOLUME 103 fL (79-100); MONO # 0.6 x10^3/uL (0.0-1.1); MONO % 8 % (0-9); NEUT # 4.9 x10^3uL (1.8-7.7); NEUT % 67 % (31-73); PLATELET COUNT 447 x10^3/uL (140-400); RED BLOOD COUNT 3.47 x10^6/uL (3.50-5.40); WHITE BLOOD COUNT 7.3 x10^3/uL (4.0-11.0)
[2021-05-23 16:06] LABS: ALBUMIN 2.8 g/dL (3.4-5.0); ALBUMIN/GLOBULIN RATIO 0.8 (1.0-1.7); CALCIUM 8.1 mg/dL (8.5-10.1); CREATININE 0.5 mg/dL (0.6-1.0); GFR 127.6; TOTAL BILIRUBIN 0.4 mg/dL (0.2-1.0); TOTAL PROTEIN 6.2 g/dL (6.4-8.2)
[2021-05-23 16:10] LABS: POTASSIUM 2.8 mmol/L (3.5-5.1)
[2021-05-23] MEDS: MORPHINE SULFATE 2 MG/ML DISP.SYRIN. IVP PRN ×4 (16:44→23:35)
[2021-05-23 17:14] LABS: BILIRUBIN,URINE NEG (NEG); CLARITY,URINE CLEAR; COLOR,URINE YELLOW; GLUCOSE,URINE NEG (NEG)
[2021-05-23] MEDS: ONDANSETRON PF 4 MG/2 ML VIAL. IVP PRN ×2 (17:14→21:34)
[2021-05-23 17:15] LABS: BACTERIA,URINE 0 /HPF (0-FEW); NITRITE,URINE NEG (NEG); RBC,URINE 0 /HPF (0-2); UROBILINOGEN,URINE 0.2 mg/dL (0.2 mg/dL); WBC,URINE 0 /HPF (0-4)
[2021-05-23] MEDS: POTASSIUM CHLORIDE 10MEQ 100 ML IV SCH ×4 (17:27→22:56)
[2021-05-23 19:28] VITALS: BP 139/96
[2021-05-23] MEDS: IV NORMAL SALINE 1,000ML 1,000 ML IV SCH (19:52)
--- NOTE | 2021-05-23 20:18 | EKG ---
[address] [address] Test Date: 2021-05-23 Test Time: 17:04:31 Pat Name: YUNI SCHUSTER Department: Room: ED HOLD 9 Gender: F Product Support Representative: : 1965 Requested By: CORDELIA CARDOZO Order Number: [id number] Reading MD: Rohan Oshea Measurements Intervals [place] Rate: 83 P: 72 NV: 158 QRS: 52 QRSD: 74 T: 59 QT: 382 QTc: 455 Interpretive Statements SINUS RHYTHM NORMAL ECG Electronically Signed On 05-26-2021 15:16:41 MODELING AGENCY MANAGER by Rohan Oshea
[2021-05-23] MEDS ORDERED: CYCL10TA19 PO (20:51)
[2021-05-23] MEDS ORDERED: MOME13HF2 INH (21:42)
[2021-05-23] MEDS ORDERED: ACET325T9 PO (21:42)
[2021-05-23 22:56] VITALS: BP 130/75
[2021-05-24 01:20] VITALS: BP 145/81
[2021-05-24] MEDS: MORPHINE SULFATE 2 MG/ML DISP.SYRIN. IVP PRN ×7 (01:47→15:24)
[2021-05-24] MEDS: ONDANSETRON PF 4 MG/2 ML VIAL. IVP PRN ×3 (04:10→15:24)
[2021-05-24 05:00] VITALS: BP 130/83
[2021-05-24] MEDS: IV NORMAL SALINE 1,000ML 1,000 ML IV SCH ×2 (06:09→13:11)
[2021-05-24 06:37] LABS: BASO % 1 % (0-3); EOS # 0.1 x10^3/uL (0.0-0.7); EOS % 1 % (0-3); HEMATOCRIT 33.6 % (36.0-47.0); HEMOGLOBIN 11.3 g/dL (12.0-15.5); LYMPH # 1.6 x10^3/uL (1.0-4.8); LYMPH % 22 % (24-48); MEAN CORPUSCULAR HEMOGLOBIN 35 pg (25-35); MEAN CORPUSCULAR HGB CONC 34 g/dL (31-37); MEAN CORPUSCULAR VOLUME 104 fL (79-100); MONO # 0.7 x10^3/uL (0.0-1.1); MONO % 9 % (0-9); NEUT # 5.1 x10^3uL (1.8-7.7); NEUT % 68 % (31-73); PLATELET COUNT 404 x10^3/uL (140-400); RED BLOOD COUNT 3.24 x10^6/uL (3.50-5.40); RED CELL DISTRIBUTION WIDTH 20.4 % (11.5-14.5); WHITE BLOOD COUNT 7.5 x10^3/uL (4.0-11.0)
[2021-05-24 06:56] LABS: ALBUMIN 2.6 g/dL (3.4-5.0); ALBUMIN/GLOBULIN RATIO 0.9 (1.0-1.7); CALCIUM 7.7 mg/dL (8.5-10.1); CREATININE 0.5 mg/dL (0.6-1.0); GFR 127.6; POTASSIUM 3.2 mmol/L (3.5-5.1); TOTAL BILIRUBIN 0.4 mg/dL (0.2-1.0); TOTAL PROTEIN 5.4 g/dL (6.4-8.2)
[2021-05-24 08:06] LABS: ANISOCYTOSIS PRESENT
[2021-05-24 08:08] LABS: MICROCYTOSIS PRESENT; POLYCHROMASIA PRESENT
[2021-05-24 08:14] LABS: PLATELET CLUMP PRESENT; PLT ESTIMATE INCREASED (ADEQUATE)
[2021-05-24] MEDS: ENOXAPARIN 40 MG/0.4 ML SYRINGE. SQ SCH (08:29)
[2021-05-24 11:55] VITALS: BP 132/78
[2021-05-24] MEDS ORDERED: PANTOPRAZOLE IV 40 MG VIAL. IVP ONE (14:45)
[2021-05-24 15:00] VITALS: BP 111/73
[2021-05-24] MEDS: POTASSIUM CL 40MEQ D5-0.45NACL 1,000 ML IV SCH (15:25)
--- NOTE | 2021-05-24 15:29 | HP ---
DATE OF SERVICE: 05/24/2021 ADMIT DATE: 05/23/2021 HISTORY OF PRESENT ILLNESS: The patient is a 56-year-old female patient who presented to the Emergency Room with a complaint of left upper quadrant pain with nausea, started about 3 days ago. The patient is known to have history of chronic pancreatitis and stated that she feels like her chronic pancreatitis. The patient was seen a day before in the Emergency Department, did have an elevated lipase, was discharged home with pain medication and diet restriction. The patient is also COVID positive. She reports shortness of breath and a cough. It appears that they did a chest x-ray that showed mild pneumonia. The patient denies any vomiting, diarrhea, blood in her stool or vomitus or fevers. She was extensively investigated in the Emergency Room and has had lab work. Her urinalysis was essentially unremarkable. Her chemistry showed she has hypokalemia as well as elevated serum lipase. She has also normochromic normocytic anemia. Her CT scan of the abdomen and pelvis with IV contrast only showed that the patient has prominent size of the pancreatic head and uncinate process with adjacent edema to the fat. It could be from causes such as pancreatitis, would obtain a followup to ensure that this decreased to exclude superimposed mass in the area, this include the region adjacent to the pancreas and the distal stomach, which could be secondary to a developing small fluid collection in the region but followup could be obtained to ensure it regressed to exclude the persistent mass contributing. There is also some edema and prominence of the wall of the distal aspect of the stomach and duodenum, which could be secondary to adjacent pancreatitis or duodenitis, gastritis or ulcer is also not excluded. Prominence of the pancreatic duct is seen, which can be sequela of pancreatitis. There is also calcification of the pancreas, which can be from chronic pancreatitis, patchy opacities at the lung bases, which could be infectious in nature with attention on followup to exclude persistent nodules and atherosclerotic disease. The patient was admitted with [id number] pancreatitis. She was started on IV fluid, pain medication and antiemetic. PAST MEDICAL HISTORY: Significant for chronic alcoholism, chronic obstructive pulmonary disease, gastroesophageal reflux disease, major depression, anxiety and recurrent pancreatitis. PAST SURGICAL HISTORY: Significant for bilateral mastectomy and surgical implant as well as tubal ligation. FAMILY HISTORY: Her mother of complication of heart disease at the age of 65. Father of COPD complications at the age of 71. SOCIAL HISTORY: She continued to drink alcohol on a daily basis. She smokes a pack a day of cigarettes and she is unemployed. ALLERGIES: SHE IS ALLERGIC TO SULFA DRUGS. REVIEW OF SYSTEMS: As per history of present illness. PHYSICAL EXAMINATION: GENERAL: On arrival to the Emergency Room, she was somewhat pale, not jaundiced or cyanosed. No lymphadenopathy, no thyromegaly, no jugular venous distention. No lower limb edema. VITAL SIGNS: Her heart rate was 97, blood pressure is 139/96, temperature was 98.2, respiratory rate was 13, and oxygen saturation was 99% on room air. HEAD, EYES, EARS, NOSE, AND THROAT: Normocephalic, atraumatic. NECK: Supple. HEART: Showed normal first and second heart sounds. No gallop or murmur. CHEST: Shows central trachea, equally reduced expansion, reduced air entry, vesicular breath sounds. No crepitation or rhonchi. ABDOMEN: Scaphoid with tenderness mostly in the epigastric area. No guarding or rigidity. No organomegaly. All hernial orifice intact. Bowel sounds normal. NEUROLOGIC: She was grossly intact. LABORATORY DATA: Her lab work on arrival showed a white cell count 7300, hemoglobin 12, hematocrit 36, MCV 103 and platelet count of 447,000. The manual differential shows 67% polymorphs, 24% lymphocytes, 8% monocytes. Her chemistry showed a serum sodium 138, potassium 2.8, chloride 103, bicarbonate 27, anion gap of 8, BUN 12, creatinine 0.5. Estimated GFR was 127 mL per minute. Her glucose was 89, calcium was 8.1. Total bilirubin, AST, ALT were normal. Alkaline phosphatase slightly elevated. Total protein 6.2, albumin was 2.8. Her lipase was 691. Urinalysis essentially unremarkable. ASSESSMENT AND PLAN: Acute on chronic, probably alcohol-induced pancreatitis. The patient was admitted, kept n.p.o., started on IV fluid, IV pain medication, antiemetic. Other medical problems include chronic obstructive pulmonary disease, chronic alcoholism, anxiety and depression. We will repeat all her lab work again and we will decide. As she always has hypokalemia, we will replenish the potassium and once her serum lipase has normalized, we can start her on clear liquid and advance diet as tolerated. ALLYSON/JADIEL/BRITTNY DR: Praveen TID: [id number]
[2021-05-24] MEDS: MORPHINE SULFATE 2 MG/ML DISP.SYRIN. IV PRN ×3 (17:59→22:17)
--- NOTE | 2021-05-24 21:18 | PN ---
DATE: 05/24/2021 SUBJECTIVE: The patient is resting, slightly propped up in bed, in no apparent distress. She continued to complain of abdominal pain, but no nausea, no vomiting, no diarrhea. No chills, rigors or fever. PHYSICAL EXAMINATION: GENERAL: When I examined her this afternoon, she looked somewhat pale, cachectic, but no jaundice, cyanosis. No lymphadenopathy, no thyromegaly, no jugular venous distention. No limb edema. VITAL SIGNS: Her heart rate was 90, blood pressure was 130/75, temperature was 98.6, respiratory rate was 13, and oxygen saturation was 96% on room air. The rest of clinical exam stable. Her intake over the last 24 hours was 1400. LABORATORY DATA: Her lab work this morning showed a white cell count of 7500, hemoglobin 11, hematocrit 33, MCV 104 and platelet count of 404,000. Her chemistry showed a serum sodium of 138, potassium 3.2, chloride 103, bicarbonate 25, anion gap of 10, BUN 5, creatinine 0.5. Estimated GFR was 127 mL per minute. Her glucose was 7.7. Total bilirubin, AST, ALT were normal. Alkaline phosphatase slightly elevated. Total protein 5.4, albumin was 2.6, serum lipase this morning was 297. ASSESSMENT: Acute on chronic, probably alcohol-induced pancreatitis. Other problems include chronic obstructive pulmonary disease, nicotine dependence, gastroesophageal reflux disease. She has kyphosis and bilateral breast cancer, status post bilateral mastectomies. PLAN: My plan is to start her on a clear liquid diet, change her IV fluid to D5 half normal with 40 mEq of potassium chloride. We will repeat all her labs again tomorrow and if the serum lipase remains stable, we can advance her diet and hopefully discharge her home. GRISEL DR: Praveen TID: [id number]
[2021-05-24 21:26] VITALS: BP 138/86
[2021-05-25] MEDS: POTASSIUM CL 40MEQ D5-0.45NACL 1,000 ML IV SCH ×3 (00:30→20:02)
[2021-05-25] MEDS: MORPHINE SULFATE 2 MG/ML DISP.SYRIN. IV PRN ×5 (00:34→11:02)
[2021-05-25 06:07] VITALS: BP 119/77
[2021-05-25 07:16] LABS: ALBUMIN 2.6 g/dL (3.4-5.0); ALBUMIN/GLOBULIN RATIO 0.8 (1.0-1.7); CALCIUM 8.3 mg/dL (8.5-10.1); CREATININE 0.5 mg/dL (0.6-1.0); GFR 127.6; TOTAL BILIRUBIN 0.3 mg/dL (0.2-1.0); TOTAL PROTEIN 5.8 g/dL (6.4-8.2)
[2021-05-25] MEDS: ENOXAPARIN 40 MG/0.4 ML SYRINGE. SQ SCH (08:16)
--- NOTE | 2021-05-25 10:23 | PN ---
DATE: 05/25/2021 ATTENDING PHYSICIANS: Dr. Gómez and Dr. Mandel. SUBJECTIVE: Still nauseated. Pain is moderate. OBJECTIVE FINDINGS: VITAL SIGNS: Blood pressure this morning is 119/77. She is afebrile. Oxygen saturation 94% on room air. Coronavirus swabs were negative on this admission. She has not been vaccinated. She has recovered from the coronavirus. HEENT: Head is without trauma. Pupils are reactive. Sclerae nonicteric. The oropharynx is clear. NECK: Supple, no bruits identified. LUNGS: Otherwise clear. CARDIOVASCULAR: Regular heart tones. ABDOMEN: Soft. Minimal guarding. EXTREMITIES: Without edema. NEUROLOGIC FINDINGS: Focally intact. Speech is fluent. PERTINENT LABORATORY STUDIES: The lipase is down to 243 and the potassium was replaced up to 4.0 mEq per liter. ASSESSMENT: 1. A 56-year-old female with recurrent alcoholic pancreatitis. According to Dr. Gómez, she is still drinking. She denied it to me. 2. Chronic obstructive pulmonary disease. 3. History of COVID and unvaccinated patient, now resolved. 4. Nausea and abdominal pain related to pancreatitis. PLAN: 1. Continue liquid sparingly. 2. Pain and nausea control. 3. Home meds continued. SANTI DR: Jacquelyn TID: [id number]
[2021-05-25 11:41] VITALS: BP 148/83
[2021-05-25] MEDS: MORPHINE SULFATE 4 MG/ML DISP.SYRIN. IV PRN ×4 (13:23→23:14)
[2021-05-25 15:48] VITALS: BP 116/78
[2021-05-25 19:00] VITALS: BP 121/79
[2021-05-25 23:00] VITALS: BP 114/78
[2021-05-26] MEDS: MORPHINE SULFATE 4 MG/ML DISP.SYRIN. IV PRN ×7 (02:15→22:10)
[2021-05-26] MEDS: POTASSIUM CL 40MEQ D5-0.45NACL 1,000 ML IV SCH ×2 (05:27→16:36)
[2021-05-26 06:04] VITALS: BP 101/69
[2021-05-26] MEDS: ENOXAPARIN 40 MG/0.4 ML SYRINGE. SQ SCH (08:00)
--- NOTE | 2021-05-26 10:38 | PN ---
DATE: 05/26/2021 ATTENDING PHYSICIAN: Dr. Mandel. SUBJECTIVE: Hungry, pain is better controlled. OBJECTIVE FINDINGS: VITAL SIGNS: Blood pressure this morning is 101/69, pulse is 80 and regular. She is afebrile. Oxygen saturation 95% on room air. HEENT: Head is without trauma. Pupils are reactive. Sclerae nonicteric. Oropharynx is clear. NECK: Supple, no bruits identified. LUNGS: Good breath sounds. CARDIOVASCULAR: Showed regular heart tones. ABDOMEN: Soft. Minimal guarding. No rebound tenderness. Bowel sounds remain hypoactive. EXTREMITIES: Show no cyanosis or edema. SKIN: Warm and dry. ASSESSMENT: 1. A 56-year-old female with recurrent alcoholic pancreatitis. 2. Chronic obstructive pulmonary disease. 3. History of COVID in unvaccinated patient, now resolved. 4. Nausea and abdominal pain, resolved. PLAN: 1. Advance diet. 2. Pain and nausea control. 3. Tentative discharge plans for tomorrow. REYNALDO/GIOVANNI DR: Jacquelyn TID: [id number]
[2021-05-26 11:02] VITALS: BP 124/82
[2021-05-26 15:07] VITALS: BP 119/85
[2021-05-26 19:35] VITALS: BP 86/57
[2021-05-26 22:06] VITALS: BP 106/66
[2021-05-27] MEDS: POTASSIUM CL 40MEQ D5-0.45NACL 1,000 ML IV SCH ×3 (00:22→21:22)
[2021-05-27 00:26] VITALS: BP 95/61
[2021-05-27] MEDS: MORPHINE SULFATE 4 MG/ML DISP.SYRIN. IV PRN ×7 (02:54→20:44)
[2021-05-27 06:04] VITALS: BP 104/69
[2021-05-27] MEDS: ENOXAPARIN 40 MG/0.4 ML SYRINGE. SQ SCH (08:28)
[2021-05-27 10:42] VITALS: BP 111/76
--- NOTE | 2021-05-27 13:34 | PN ---
DATE: 05/27/2021 ATTENDING PHYSICIAN: Dr. Mandel. SUBJECTIVE: The patient is doing better. Abdominal pain has subsided. She is eating some solids and keeping it down. Nausea is improved. OBJECTIVE FINDINGS: VITAL SIGNS: Blood pressure this morning is 104/70, her pulse is 81 and regular. She is afebrile. Oxygen saturation 95% on room air. HEENT: Head is without trauma. Pupils are reactive. Sclerae are nonicteric. The oropharynx is clear. NECK: Supple, no bruits identified. LUNGS: Clear. CARDIOVASCULAR: Regular heart tones. ABDOMEN: Soft. No guarding or rebound tenderness. Hypoactive bowel sounds. EXTREMITIES: Show no cyanosis or edema. NEUROLOGIC FINDINGS: Focally intact. ASSESSMENT: 1. A 56-year-old female with recurrent pancreatitis, most likely due to alcohol use. 2. Chronic obstructive pulmonary disease. 3. History of recent COVID infection. 4. Nausea and abdominal pain subsided. PLAN: 1. Advance diet as tolerated. 2. Continue pain control. 3. Tentative discharge plans for tomorrow. REYNALDO/DEVAN DR: REYNALDO/mercedes TID: [id number]
[2021-05-27 15:25] VITALS: BP 115/77
[2021-05-27 19:45] VITALS: BP 109/73
[2021-05-27] MEDS: MAG HYDROX/AL HYDROX/SIMETH 30 ML ORAL.SUSP PO PRN (19:53)
[2021-05-28] MEDS: MORPHINE SULFATE 4 MG/ML DISP.SYRIN. IV PRN ×7 (04:05→21:05)
[2021-05-28 06:31] VITALS: BP 106/70
[2021-05-28] MEDS: ENOXAPARIN 40 MG/0.4 ML SYRINGE. SQ SCH (08:13)
[2021-05-28] MEDS: POTASSIUM CL 40MEQ D5-0.45NACL 1,000 ML IV SCH (08:14)
--- NOTE | 2021-05-28 10:51 | PN ---
DATE: 05/28/2021 ATTENDING PHYSICIAN: Dr. Mandel. SUBJECTIVE: Still having moderate abdominal pain. She is eating better and holding it down. Nausea has improved. OBJECTIVE FINDINGS: VITAL SIGNS: Blood pressure this morning is 106/70, pulse is 85 and regular. She is afebrile. Oxygen saturation 95% on room air. HEENT: Head is without trauma. Pupils are reactive. Sclerae nonicteric. Oropharynx is clear. NECK: Supple, no bruits. LUNGS: Otherwise clear. CARDIOVASCULAR: Regular heart tones. ABDOMEN: Diffuse tenderness. No guarding. EXTREMITIES: Without edema. NEUROLOGIC FINDINGS: Focally intact. ASSESSMENT: A 56-year-old female with, 1. Recurrent pancreatitis, most likely with alcohol use. 2. Chronic obstructive pulmonary disease. 3. Recent COVID infection, resolved. 4. Nausea and abdominal pain, improved. PLAN: 1. Advance diet. 2. Discontinue IV fluids. 3. Pain control. 4. Tentative discharge plans for tomorrow. JHONNY DR: Jacquelyn TID: [id number]
[2021-05-28 10:58] VITALS: BP 94/59
[2021-05-28] MEDS: MAG HYDROX/AL HYDROX/SIMETH 30 ML ORAL.SUSP PO PRN ×2 (11:44)
[2021-05-28 15:04] VITALS: BP 92/60
[2021-05-28 19:47] VITALS: BP 95/67
[2021-05-29] MEDS: MAG HYDROX/AL HYDROX/SIMETH 30 ML ORAL.SUSP PO PRN
[2021-05-29] MEDS: MORPHINE SULFATE 4 MG/ML DISP.SYRIN. IV PRN ×3 (03:43→06:32)
[2021-05-29 06:00] VITALS: BP 92/64
[2021-05-29] MEDS: ENOXAPARIN 40 MG/0.4 ML SYRINGE. SQ SCH (08:00)
[2021-05-29] MEDS ORDERED: OXYC1TAB22 PO (08:26)
--- NOTE | 2021-05-29 08:47 | DS ---
DATE OF DISCHARGE: 05/29/2021 ATTENDING PHYSICIAN: Dr. Mandel. FINAL DISCHARGE DIAGNOSES: 1. Recurrent pancreatitis, most likely alcohol related. 2. Chronic alcoholism. 3. Chronic obstructive pulmonary disease. 4. Recent COVID infection. 5. Nausea and abdominal pain, resolved. HISTORY AND PHYSICAL: The patient is a 56-year-old female, known alcoholic. Unfortunately, she continues to drink. This is per Dr. Gómez's record. She tells me that she has stopped drinking. Whether or not this is true remains to be seen. In any event, she had recurrent abdominal pain, nausea and clinical evidence of pancreatitis. PHYSICAL EXAMINATION: Please see the dictated note. PERTINENT LABORATORY AND X-RAY STUDIES: Admission hemoglobin was 11.3 g/dL. The mean cell volume was 104, suggesting chronic alcohol use. White count is 7500. Potassium was 2.8 mEq, replaced, 2 days later was up to 4.0 mEq per liter, sodium 137. Her admission lipase was 691, repeated was down to 297 and 243 respectively. Creatinine is normal at 0.5 mg/dL. COURSE IN THE HOSPITAL: The patient was admitted. She was kept n.p.o. Diet gradually advanced. We managed her pain and nausea control. She improved and was able to hold solid foods down. By the sixth hospital day, her vital signs were stable. Abdominal pain resolved. Her blood pressure was adequate at 92/64. She was not symptomatic. Pulse and heart rate were normal. She was afebrile. Oxygen saturation 93% on room air. Therefore, I discharged her home. I did electronically sent a prescription for Percocet 10/325 one every 6 hours p.r.n. pain, #30 with no refills. In addition, strong encouragement to avoid further tobacco and alcohol use, whether or not she will quit drinking or smoking remains to be seen. She was discharged then from our hospital in stable condition with explicit drug and followup care. Total discharge time spent [address]: Jacquelyn TID: [id number] CC: DANA JULES MD
== END 2021-05-29 10:35 | disposition home or self-care (01) | DRG 440 ==
LOC: ER 14:28 → ER HOLD 20:07 → 1 SOUTH 05-24 01:12
PROVIDERS: ADMIT Internal Medicine; ATTEND Internal Medicine
DX: K85.20 Alcohol induced acute pancreatitis without necrosis or infection (principal); J44.9 Chronic obstructive pulmonary disease, unspecified; D64.9 Anemia, unspecified; E87.6 Hypokalemia; F10.20 Alcohol dependence, uncomplicated; F17.210 Nicotine dependence, cigarettes, uncomplicated; F32.A Depression, unspecified; F41.9 Anxiety disorder, unspecified; K21.9 Gastro-esophageal reflux disease without esophagitis; K86.1 Other chronic pancreatitis; M41.9 Scoliosis, unspecified; Z82.5 Family history of asthma and other chronic lower respiratory diseases; Z85.3 Personal history of malignant neoplasm of breast; Z90.13 Acquired absence of bilateral breasts and nipples; Z90.710 Acquired absence of both cervix and uterus; F32.9 Major depressive disorder, single episode, unspecified; Z88.2 Allergy status to sulfonamides; Z20.822 Contact with and (suspected) exposure to COVID-19; Z28.3 Underimmunization status
CPT/HCPCS: 36415; 74177; 80053; 81001; 83690; 85025; 87426; 93005; 96361; 96365; 96366; 96375; C9113; J1650; J2270; J2405; J3480; J7042; Q9967; U0003; 99285-25; J7030

== ENCOUNTER 2021-08-13 08:55 | Emergency (ER) | payer MEDICAID ==
[~2021-08-13] VITALS: Ht 170.2 cm; Wt 58.6 kg
[~2021-08-13 08:55] MED LIST changes: +ACET325T9 PO; +MOME13HF2 INH; +OXYC1TAB22 PO
[2021-08-13] MEDS ORDERED: IV NORMAL SALINE 1,000ML 1,000 ML IV ONE (09:15)
[2021-08-13] MEDS ORDERED: ONDANSETRON PF 4 MG/2 ML VIAL. IV ONE (09:15)
[2021-08-13] MEDS ORDERED: MORPHINE SULFATE 4 MG/ML DISP.SYRIN. IV ONE (09:30)
[2021-08-13] MEDS ORDERED: CONTRAST GIVEN. MC PRN (09:30)
[2021-08-13] MEDS ORDERED: IOHEXOL 300 MG/ML 75 ML VIAL. IV ONE (09:30)
[2021-08-13 09:58] LABS: CALCIUM 9.7 mg/dL (8.5-10.1); CREATININE 0.8 mg/dL (0.6-1.0); GFR 74.2; POTASSIUM 3.7 mmol/L (3.5-5.1)
[2021-08-13 10:03] LABS: ALBUMIN 4.4 g/dL (3.4-5.0); ALBUMIN/GLOBULIN RATIO 1.3 (1.0-1.7); TOTAL BILIRUBIN 1.2 mg/dL (0.2-1.0); TOTAL PROTEIN 7.9 g/dL (6.4-8.2)
--- NOTE | 2021-08-13 10:43 | PHYS DOC ---
Past History Past Medical History: Alcoholism, COPD, GERD, Pancreatitis Additional Past Medical Histor: SCOLIOSIS, DDD, KYPHOSIS, breast cancer, neuropathy Past Surgical History: Other Additional Past Surgical Histo: double mastectomy; breast reconstruction Smoking: Greater than 1 pack/day Alcohol Use: Sober Drug Use: None Adult General Chief Complaint Chief Complaint: MULTIPLE COMPLAINTS [facility] HPI Patient is a 56-year-old female presents emergency department for evaluation of epigastric abdominal pain that started 2 days ago after starting drinking 3 days ago and she suspects that she has acute pancreatitis as she has had pancreatitis in the past related to her alcohol abuse. Patient says the pain does not radiate but it does cause her nausea and vomiting. The emesis has been nonbloody nonbilious and she denies any associated diarrhea constipation dysuria hematuria vaginal bleeding or vaginal discharge. She says she still has her gallbladder. She is in no acute distress with normal vital signs. Review of Systems Review of Systems Constitutional: Denies fever or chills [] Eyes: Denies change in visual acuity, redness, or eye pain [] HENT: Denies nasal congestion or sore throat [] Respiratory: Denies cough or shortness of breath [] Cardiovascular: No additional information not addressed in HPI [] GI: + abdominal pain, nausea, vomiting. No bloody stools or diarrhea [] : Denies dysuria or hematuria [] Musculoskeletal: Denies back pain or joint pain [] Integument: Denies rash or skin lesions [] Neurologic: Denies headache, focal weakness or sensory changes [] All other systems were reviewed and found to be within normal limits, except as documented in this note. Current Medications Current Medications Current Medications Medications (Trade) Dose Ordered Sig/Travis Start Time Stop Time Status Last Admin Dose Admin Info (Do NOT chart on this entry -- for MONITORING) 1 each PRN DAILY PRN 08/13/21 09:30 08/15/21 09:29 Iohexol (Omnipaque 300 Mg/ml) 75 ml 1X ONCE 08/13/21 09:30 08/13/21 09:31 DC 08/13/21 09:30 75 ML Morphine Sulfate (Morphine 4mg Syringe) 4 mg 1X ONCE 08/13/21 09:30 08/13/21 09:31 DC 08/13/21 09:37 4 MG Ondansetron HCl (Zofran) 4 mg 1X ONCE 08/13/21 09:15 08/13/21 09:16 DC 08/13/21 09:34 4 MG Sodium Chloride 1,000 ml @ 1,000 mls/hr 1X ONCE 08/13/21 09:15 08/13/21 10:14 DC 08/13/21 09:33 1,000 MLS/HR Allergies Allergies Allergies Coded Allergies Type Severity Reaction Last Updated Verified Sulfa (Sulfonamide Antibiotics) Allergy Intermediate N/V hives 08/13/21 Yes ibuprofen Allergy Unknown 08/13/21 Yes Physical Exam Physical Exam Constitutional: Well developed, well nourished, no acute distress, non-toxic appearance. [] HENT: Normocephalic, atraumatic, bilateral external ears normal, oropharynx moist, no oral exudates, nose normal. [] Eyes: PERRLA, EOMI, conjunctiva normal, no discharge. [] Neck: Normal range of motion, no tenderness, supple, no stridor. [] Cardiovascular:Heart rate regular rhythm, no murmur [] Lungs & Thorax: Bilateral breath sounds clear to auscultation [] Abdomen: Bowel sounds normal, soft, positive epigastric and bilateral upper quadrant tenderness to palpation with no rebound or guarding. Skin: Warm, dry, no erythema, no rash. [] Back: No tenderness, no CVA tenderness. [] Extremities: No tenderness, no cyanosis, no clubbing, ROM intact, no edema. [] Neurologic: Alert and oriented X 3, normal motor function, normal sensory function, no focal deficits noted. [] Psychologic: Affect normal, judgement normal, mood normal. [] Current Patient Data Vital Signs Vital Signs Date Time Temp Pulse Resp B/P (MAP) Pulse Ox O2 Delivery O2 Flow Rate FiO2 08/13/21 09:40 100 18 121/83 (96) 96 Room Air 08/13/21 09:08 98.1 Lab Results Laboratory Tests Test 08/13/21 09:35 Sodium Level 138 mmol/L (136-145) Potassium Level 3.7 mmol/L (3.5-5.1) Chloride Level 96 mmol/L (98-107) L Carbon Dioxide Level 26 mmol/L (21-32) Anion Gap 16 (6-14) H Blood Urea Nitrogen 13 mg/dL (7-20) Creatinine 0.8 mg/dL (0.6-1.0) Estimated GFR (Cockcroft-Gault) 74.2 BUN/Creatinine Ratio 16 (6-20) Glucose Level 106 mg/dL (70-99) H Calcium Level 9.7 mg/dL (8.5-10.1) Total Bilirubin 1.2 mg/dL (0.2-1.0) H Aspartate Amino Transferase (AST) 25 U/L (15-37) Alanine Aminotransferase (ALT) 23 U/L (14-59) Alkaline Phosphatase 136 U/L (46-116) H Total Protein 7.9 g/dL (6.4-8.2) Albumin 4.4 g/dL (3.4-5.0) Albumin/Globulin Ratio 1.3 (1.0-1.7) Lipase 75 U/L (73-393) Ethyl Alcohol Level < 10 mg/dL (0-10) EKG EKG [] Radiology/Procedures Radiology/Procedures [] Heart Score C/O Chest Pain: No Risk Factors: Risk Factors: DM, Current or recent (<one month) smoker, HTN, HLP, family history of CAD, obesity. Risk Scores: Risk Factors: DM, Current or recent (<one month) smoker, HTN, HLP, family history of CAD, obesity. Course & Med Decision Making Course & Med Decision Making Patient has epigastric pain but her lipase is normal. I will check a CT. I suspect this may be more of an alcoholic gastritis or ulcer than acute pancrea titis at this point. Patient's CT did show findings of chronic pancreatitis but it was improved from a prior CT. no acute surgical pathology found on the CT scan. All incidental findings on labs and imaging were discussed and the need for follow-up. Isha handy's repeat abdominal exam is benign with no focal tenderness rebound or guarding. She is able to tolerate fluids by mouth with no difficulty. Patient was told to avoid drinking alcohol and taking a liquid diet over the next 36 hours. Patient will be discharged in stable condition prescribe supportive medications and told to follow with primary care provider as an outpatient w breanna 2 to 3 days for recheck and come back to emergency department sooner with worsening pain fevers vomiting or other general concerns. Patient aware and agreeable with plan and verbalized understanding of the above instructions. Dragon Disclaimer Dragon Disclaimer This electronic medical record was generated, in whole or in part, using a voice recognition dictation system. Departure Departure: Impression: Primary Impression: Chronic pancreatitis Additional Impressions: Abdominal pain Nausea & vomiting Disposition: 01 HOME / SELF CARE / HOMELESS Condition: STABLE Referrals: DANA JULES MD (PCP) Patient Instructions: Acute Pancreatitis, [id number] Scripts Ondansetron (ONDANSETRON ODT) 4 Mg Tab.rapdis 1 TAB PO PRN Q6-8HRS, #16 TAB Prov: DANAE BARNETT DO 08/13/21 Hydrocodone Bit/Acetaminophen (HYDROCODONE-APAP 5-325 ) 1 Each Tablet 1 TAB PO PRN Q6HRS PRN for PAIN, #10 TAB 0 Refills Prov: DANAE BARNETT DO 08/13/21 Problem Qualifiers Primary Impression: Chronic pancreatitis Pancreatitis type: alcohol induced Qualified Codes: K86.0 - Alcohol- induced chronic pancreatitis DANAE BARNETT DO Aug 13, 2021 10:43
[2021-08-13 10:48] LABS: BASO % 1 % (0-3); EOS % 1 % (0-3); HEMATOCRIT 46.4 % (36.0-47.0); HEMOGLOBIN 15.5 g/dL (12.0-15.5); LYMPH # 1.3 x10^3/uL (1.0-4.8); LYMPH % 19 % (24-48); MEAN CORPUSCULAR HEMOGLOBIN 35 pg (25-35); MEAN CORPUSCULAR HGB CONC 33 g/dL (31-37); MEAN CORPUSCULAR VOLUME 105 fL (79-100); MONO # 0.6 x10^3/uL (0.0-1.1); MONO % 9 % (0-9); NEUT # 4.7 x10^3uL (1.8-7.7); NEUT % 71 % (31-73); PLATELET COUNT 522 x10^3/uL (140-400); RED BLOOD COUNT 4.41 x10^6/uL (3.50-5.40); WHITE BLOOD COUNT 6.7 x10^3/uL (4.0-11.0)
--- NOTE | 2021-08-13 10:48 | RAD ---
INDICATION: Reason: upper abd pain, h/o pancreatitis / Spl. Instructions: / History: COMPARISON: May 2021 TECHNIQUE: Axial CT images were obtained through the abdomen and pelvis with intravenous contrast. One or more of the following individualized dose reduction techniques were utilized for this examinat ion: 1. Automated exposure control; 2. Adjustment of the mA and/or kV according to patient size; 3 . Use of iterative reconstruction technique. FINDINGS: Vascular: Moderate atherosclerotic disease Hepatobiliary: Liver prominent in size. Pancreas: Dilated pancreatic duct is again seen. Repeat demonstration of numerous calcifications thro ughout the pancreas which can be from chronic pancreatitis. Mild fullness of the pancreatic head and uncinate process but interval improvement in the previously identified edema in the area. Either atul g the anterior aspect or adjacent to the pancreatic head there is mixed density region identified wit h central low density component with the central low density component measuring approximately 6 mm. This is in the region of previously identified inflammation, nodularity and low density and overall a ppears decreased. Spleen: Spleen unremarkable. Renal/Bladder: bladder has minimal urine within it. No significant hydronephrosis. Gastrointestinal: No periappendiceal inflammatory changes. There are some scattered mildly distended loops of small bowel. No high-grade transition point to suggest obstruction. Portion of small bowel w all appears prominent in thickness including at left upper quadrant. Degenerative changes the spine with scoliotic curvature and multilevel central canal and neural jammie inal stenosis. IMPRESSION: * Repeat demonstration of dilation of the pancreatic duct with fullness of the head and uncinate pr ocess and calcifications scattered throughout the pancreas which can be seen with chronic pancreatiti s. There has been interval decrease in edema when compared to prior examination which could be from i mprovement of the patient's previously identified pancreatitis. There is regional low density seen ei ther adjacent to or within the anterior aspect of the pancreatic head but this also appears slightly decreased from prior. Could be associated with the patient's history pancreatitis from causes such as pseudocyst but attention on prior to ensure no growth. * There are some scattered prominent loops of small bowel but no high-grade transition point to sugg est obstruction. There is some prominence the wall of a couple of small bowel loops with inflammation from causes such as enteritis not excluded. Electronically signed by: Roland Hawkins MD (08/13/2021 10:46 AM) [id number]
[2021-08-13 11:40] LABS: BACTERIA,URINE 0 /HPF (0-FEW); CLARITY,URINE HAZY; COLOR,URINE YELLOW; GLUCOSE,URINE NEG (NEG); HYALINE CASTS, URINE FEW /HPF; NITRITE,URINE NEG (NEG); SQUAMOUS EPITHELIAL CELL,UR MANY /LPF; UROBILINOGEN,URINE 0.2 mg/dL (0.2 mg/dL)
[2021-08-13] MEDS ORDERED: HYDR-2155 PO (12:21)
[2021-08-13] MEDS ORDERED: ONDA4TAB12 PO (12:21)
[2021-08-13] MEDS ORDERED: HYDROmorphone PF 1 MG/ML DISP.SYRIN IVP ONE (12:30)
[2021-08-13 13:08] VITALS: BP 122/77
== END 2021-08-13 13:08 | disposition home or self-care (01) ==
LOC: ER 08:55
DX: K86.1 Other chronic pancreatitis (principal); J44.9 Chronic obstructive pulmonary disease, unspecified; K21.9 Gastro-esophageal reflux disease without esophagitis; F10.20 Alcohol dependence, uncomplicated; F17.200 Nicotine dependence, unspecified, uncomplicated; Z88.2 Allergy status to sulfonamides; Z88.6 Allergy status to analgesic agent; Y90.0 Blood alcohol level of less than 20 mg/100 ml
CPT/HCPCS: 36415; 74177; 80053; 81001; 83690; 85025; 96361; 96374; 96375; 99285; G0480; J1170; J2270; J2405; J3010; J7030; Q9967

== ENCOUNTER 2021-10-12 20:35 | Emergency (ER) | payer MEDICAID ==
[~2021-10-12] VITALS: Ht 170.2 cm; Wt 58.6 kg
--- NOTE | 2021-10-12 22:10 | PHYS DOC ---
Past History Past Medical History: Alcoholism, COPD, GERD, Pancreatitis Additional Past Medical Histor: SCOLIOSIS, DDD, KYPHOSIS, breast cancer, neuropathy Past Surgical History: Other Additional Past Surgical Histo: double mastectomy; breast reconstruction Smoking: Greater than 1 pack/day Alcohol Use: Sober Drug Use: None General Adult EDM: Chief Complaint: ABDOMINAL PAIN HPI: HPI: ".. I think my pancreatitis.. is flaring up again... ".. " The pain here in epigastic.. but some lower pain.. " Patient is a 56 year old female who presents with above hx and complaints of generalized abdomen pain. Patient does have rebound to epigastric area. Patient relates this to her pancreatitis episodes. Patient denies any recent travel or specific ill contacts. No history of trauma. No history of bad food intake. Patient did have COVID in May. Has not gotten COVID vaccination or flu vaccination. Patient has past medical history of chronic alcoholism, COPD, GERD, depression, anxiety, and recurrent pancreatitis. Patient has significant medical history of bilateral mastectomy, implants and tubal ligation.. Patient does smoke approximately 40 pack years. Review of Systems: Review of Systems: Constitutional: Denies fever or chills Eyes: Denies change in visual acuity HENT: Denies nasal congestion or sore throat Respiratory: Denies cough or shortness of breath Cardiovascular: Denies chest pain or edema GI: Complains of abdominal pain, nausea,. Denies vomiting, bloody stools or diarrhea : Denies dysuria Musculoskeletal: Denies back pain or joint pain Integument: Denies rash Neurologic: Denies headache, focal weakness or sensory changes Endocrine: Denies polyuria or polydipsia Lymphatic: Denies swollen glands Psychiatric: Denies depression or anxiety Family History: Family History: There is family history of heart disease-with mother who of complications of heart disease age 65. Mother of COPD complications age 71. Allergies: Allergies: Allergies Coded Allergies Type Severity Reaction Last Updated Verified Sulfa (Sulfonamide Antibiotics) Allergy Intermediate N/V hives 08/13/21 Yes ibuprofen Allergy Unknown 08/13/21 Yes Physical Exam: PE: Constitutional: Moderate acute distress, non-toxic appearance. [] HENT: Normocephalic, atraumatic, bilateral external ears normal, oropharynx moist, no oral exudates, nose normal. [] Eyes: PERRLA, EOMI, conjunctiva normal, no discharge. [] Neck: Normal range of motion, no tenderness, supple, no stridor. Kyphosis Cardiovascular:Heart rate regular rhythm, no murmur [], PMI to the left. Bedside monitor shows sinus rhythm Lungs & Thorax: Bilateral breath sounds equal apex with scattered wheezes auscultation [] Abdomen: Bowel sounds creased, soft, dentalized tenderness, no masses, no pulsatile masses. [] Rebound to epigastric Skin: Warm, dry, no erythema, no rash. Poor turgor Back: No tenderness, no CVA tenderness. Kyphosis Extremities: No tenderness, no cyanosis, no clubbing, ROM intact, no edema. Arthritic changes. No cording Neurologic: Alert and oriented X 3, moves all extremities on request, has distal sensory,, no focal deficits noted. [] Psychologic: Affect anxious judgement normal, mood normal. [] EKG: EKG: My interpretation EKG shows sinus rhythm at 73 bpm. Does have bimodal P waves. Low voltage throughout. Some nonspecific T waves. No findings acute STEMI or contralateral changes. Time of EKG is 2242 hrs. [] Radiology/Procedures: Radiology/Procedures: []VICI CT OF THE ABDOMEN AND PELVIS WITH IV CONTRAST. History: Reason: OMNI 240, 30 ML PO.Abd PAIN.Hx pancreatitis.Possible ileus? / Spl. Instructions: / History: Comparison:None. Procedure: Contiguous axial images of the abdomen and pelvis were performed after the administration of Omnipaque 240 IV contrast. Oral contrast: Yes. Findings: The appendix is normal. The gallbladder is normal. Liver: Unremarkable Spleen: Unremarkable Pancreas: There is calcifications Adrenal Glands: Unremarkable Kidneys: Unremarkable There is no mass or lymphadenopathy. There is no free air. There is no free fluid. The urinary bladder appears normal. Impression: 1. Calcifications within the pancreas consistent with prior pancreatitis. 2. No acute findings. End Impression PQRS Compliance Statement: One or more of the following individualized dose reduction techniques were utilized for this examination: 1. Automated exposure control 2. Adjustment of the mA and/or kV according to patient size 3. Use of iterative reconstruction technique Electronically signed by: Adele Ely III, MD (10/13/2021 1:12 AM) [facility] DICTATED AND SIGNED BY: ADELE ELY III, MD DATE: 10/13/21107 CC: MARIO JIMENEZ MD; DANA JULES MD ~ [place] [id number] IMAGING REPORT Signed PATIENT: YUNI SCHUSTER ACCOUNT: [id number] : 1965 LOCATION: ER AGE: 56 SEX: F EXAM STATUS: REG ER ORD. PHYSICIAN: MARIO JIMENEZ MD REASON: hx. pancreatitis,abd pain, chest pain PROCEDURE: ACUTE ABDOMEN SERIES Acute Abdominal Series: Technique: PA view of the chest and supine and upright views of the abdomen were obtained. History: Pain. Comparison: Pancreatitis and abdominal pain. Findings: The heart is normal size. The pulmonary vessels appear normal. There is bilateral breast implants. There is chronic changes in the lungs. There is S-shaped scoliosis of the thoracolumbar spine. There is air scattered throughout large and small bowel. There are loops of bowel on the left which are somewhat spaced apart with minimal thumbprinting. There is no free air. Impression: Abnormal bowel gas pattern and signs of bowel wall edema on the left. This is likely an ileus and could be secondary to inflammatory or infectious enteritis or colitis. Electronically signed by: Adele Ely III, MD (10/12/2021 11:28 PM) [facility] DICTATED AND SIGNED BY: ADELE ELY III, MD DATE: 10/12/21 1030 CC: MARIO JIMEENZ MD; DANA JULES MD ~ Heart Score: C/O Chest Pain: No HEART Score for Chest Pain: HEART Score for Chest Pain Response (Comments) Value History Moderately Suspicious 1 ECG Nonspecific Repolarizatio 1 Age >45 - < 65 1 Risk Factors 1 or 2 Risk Factors 1 Total 4 Risk Factors: Risk Factors: DM, Current or recent (<one month) smoker, HTN, HLP, family history of CAD, obesity. Risk Scores: Score 0 - 3: 2.5% MACE over next 6 weeks - Discharge Home Score 4 - 6: 20.3% MACE over next 6 weeks - Admit for Clinical Observation Score 7 - 10: 72.7% MACE over next 6 weeks - Early Invasive Strategies Course & Med Decision Making: Course & Med Decision Making Pertinent Labs and Imaging studies reviewed. (See chart for details) Patient follow-up with primary care. Take Tylenol for pain. Resume prior GI meds. Return if any concerns. Impression: 1. Abdomen Pain 2. Chronic pancreatitis 3. History of COPD 4. GERD 5. History of anxiety 6. History history of chronic alcoholism 7. Hx.COVID 2021 8. Macrocytic indices MCV 102 [] Dragon Disclaimer: Dragon Disclaimer: This electronic medical record was generated, in whole or in part, using a voice recognition dictation system. Departure Departure: Referrals: DANA JULES MD (PCP) Conrad Disclaimer This chart was dictated in whole or in part using Voice Recognition software in a busy, high-work load, and often noisy Emergency Department environment. It may contain unintended and wholly unrecognized errors or omissions. Dragon Disclaimer This chart was dictated in whole or in part using Voice Recognition software in a busy, high-work load, and often noisy Emergency Department environment. It may contain unintended and wholly unrecognized errors or omissions. MARIO JIMENEZ MD October 12, 2021 22:10
[2021-10-12] MEDS ORDERED: IV RINGERS SOLUTION,LACTATED 1,000 ML IV SCH (22:45)
[2021-10-12] MEDS ORDERED: KETOROLAC 30 MG/ML VIAL. IVP ONE (22:45)
[2021-10-12] MEDS ORDERED: SUCRALFATE 1 GM TABLET. PO ONE ×2 (22:45→22:54)
[2021-10-12] MEDS ORDERED: ONDANSETRON PF 4 MG/2 ML VIAL. IVP ONE (22:45)
[2021-10-12] MEDS ORDERED: FAMOTIDINE 20 MG/2 ML VIAL IVP ONE (22:45)
[2021-10-12] MEDS ORDERED: MAGNESIUM HYDROXIDE 2,400 MG/30 ML ORAL.SUSP. PO ONE (22:45)
[2021-10-12 22:49] LABS: BASO % 1 % (0-3); EOS # 0.1 x10^3/uL (0.0-0.7); EOS % 1 % (0-3); HEMATOCRIT 39.5 % (36.0-47.0); HEMOGLOBIN 13.1 g/dL (12.0-15.5); LYMPH # 2.5 x10^3/uL (1.0-4.8); LYMPH % 39 % (24-48); MEAN CORPUSCULAR HEMOGLOBIN 34 pg (25-35); MEAN CORPUSCULAR HGB CONC 33 g/dL (31-37); MEAN CORPUSCULAR VOLUME 102 fL (79-100); MONO # 0.5 x10^3/uL (0.0-1.1); MONO % 8 % (0-9); NEUT # 3.3 x10^3uL (1.8-7.7); NEUT % 52 % (31-73); PLATELET COUNT 309 x10^3/uL (140-400); RED BLOOD COUNT 3.89 x10^6/uL (3.50-5.40); RED CELL DISTRIBUTION WIDTH 16.7 % (11.5-14.5); WHITE BLOOD COUNT 6.5 x10^3/uL (4.0-11.0)
[2021-10-12 22:52] LABS: BARBITURATES NEG (NEG); BENZODIAZEPINES NEG (NEG); CANNABINOIDS NEG (NEG); COCAINE NEG (NEG); METHADONE NEG (NEG); OPIATES NEG (NEG); PHENCYCLIDINE NEG (NEG)
[2021-10-12 22:53] LABS: AMPHETAMINE/METHAMPHETAMINE NEG (NEG)
[2021-10-12] MEDS ORDERED: ONDANSETRON PF 4 MG/2 ML VIAL. ONE (22:53)
[2021-10-12] MEDS ORDERED: MAGNESIUM HYDROXIDE 2,400 MG/30 ML ORAL.SUSP. ONE (22:53)
[2021-10-12] MEDS ORDERED: FAMOTIDINE 20 MG/2 ML VIAL ONE (22:54)
[2021-10-12] MEDS ORDERED: KETOROLAC 30 MG/ML VIAL. ONE (22:54)
[2021-10-12 22:56] LABS: CALCIUM 9.2 mg/dL (8.5-10.1); CREATININE 0.9 mg/dL (0.6-1.0); GFR 64.8; POTASSIUM 4.3 mmol/L (3.5-5.1)
[2021-10-12 23:01] LABS: BACTERIA,URINE FEW /HPF (0-FEW); CLARITY,URINE CLEAR; COLOR,URINE YELLOW; GLUCOSE,URINE NEG (NEG); NITRITE,URINE NEG (NEG); RBC,URINE 0 /HPF (0-2); SQUAMOUS EPITHELIAL CELL,UR MOD /LPF; UROBILINOGEN,URINE 0.2 mg/dL (0.2 mg/dL)
[2021-10-12 23:01] LABS: ALBUMIN 3.7 g/dL (3.4-5.0); DIRECT BILIRUBIN 0.1 mg/dL (0.0-0.2); TOTAL BILIRUBIN 0.4 mg/dL (0.2-1.0); TOTAL PROTEIN 6.6 g/dL (6.4-8.2)
--- NOTE | 2021-10-12 23:30 | RAD ---
Acute Abdominal Series: Technique: PA view of the chest and supine and upright views of the abdomen were obtained. History: Pain. Comparison: Pancreatitis and abdominal pain. Findings: The heart is normal size. The pulmonary vessels appear normal. There is bilateral breast implants. Th ere is chronic changes in the lungs. There is S-shaped scoliosis of the thoracolumbar spine. There is air scattered throughout large and small bowel. There are loops of bowel on the left which a re somewhat spaced apart with minimal thumbprinting. There is no free air. Impression: Abnormal bowel gas pattern and signs of bowel wall edema on the left. This is likely an ileus and cou ld be secondary to inflammatory or infectious enteritis or colitis. Electronically signed by: Robbie Barker III, MD (10/12/2021 11:28 PM) [facility]
[2021-10-12] MEDS ORDERED: MORPHINE SULFATE 10 MG/ML SYRINGE. SQ ONE (23:45)
[2021-10-12] MEDS ORDERED: IOHEXOL 240 MG/ML 50ML VIAL. ONE (23:51)
[2021-10-13 00:21] LABS: INFLUENZA A PATIENT NEGATIVE (NEGATIVE); INFLUENZA B PATIENT NEGATIVE (NEGATIVE)
--- NOTE | 2021-10-13 01:14 | RAD ---
CT OF THE ABDOMEN AND PELVIS WITH IV CONTRAST. History: Reason: OMNI 240, 30 ML PO.Abd PAIN.Hx pancreatitis.Possible ileus? / Spl. Instructions: / History: Comparison:None. Procedure: Contiguous axial images of the abdomen and pelvis were performed after the administration of Omnipaq ue 240 IV contrast. Oral contrast: Yes. Findings: The appendix is normal. The gallbladder is normal. Liver: Unremarkable Spleen: Unremarkable Pancreas: There is calcifications Adrenal Glands: Unremarkable Kidneys: Unremarkable There is no mass or lymphadenopathy. There is no free air. There is no free fluid. The urinary bladder appears normal. Impression: 1. Calcifications within the pancreas consistent with prior pancreatitis. 2. No acute findings. End Impression PQRS Compliance Statement: One or more of the following individualized dose reduction techniques were utilized for this examinat ion: 1. Automated exposure control 2. Adjustment of the mA and/or kV according to patient size 3. Use of iterative reconstruction technique Electronically signed by: Robbie Barker III, MD (10/13/2021 1:12 AM) [facility]
[2021-10-13 02:00] VITALS: BP 143/86
[2021-10-14] MEDS ORDERED: ONDA4TAB12 PO (14:54)
[2021-10-14] MEDS ORDERED: HYDR-2759 PO (14:54)
== END 2021-10-13 02:15 | disposition home or self-care (01) ==
LOC: ER 20:35
DX: K86.1 Other chronic pancreatitis (principal); K21.9 Gastro-esophageal reflux disease without esophagitis; J44.9 Chronic obstructive pulmonary disease, unspecified; F41.9 Anxiety disorder, unspecified; D53.9 Nutritional anemia, unspecified; F10.20 Alcohol dependence, uncomplicated; F17.200 Nicotine dependence, unspecified, uncomplicated; Z86.16 Personal history of COVID-19; Z20.822 Contact with and (suspected) exposure to COVID-19; Z88.2 Allergy status to sulfonamides; Z88.6 Allergy status to analgesic agent; Y90.0 Blood alcohol level of less than 20 mg/100 ml
CPT/HCPCS: 36415; 74022; 74176; 80048; 80076; 80307; 81001; 82150; 82550; 83690; 84484; 85025; 85610; 85730; 87428; 93005; 96361; 96372; 96374; 96375; 99285; C9803; G0480; J1885; J2270; J2405; J3490; J7120; U0003

== ENCOUNTER 2021-10-14 11:55 | Emergency (ER) | payer MEDICAID ==
[~2021-10-14] VITALS: Ht 170.2 cm; Wt 61.4 kg
[2021-10-14] MEDS ORDERED: ONDANSETRON PF 4 MG/2 ML VIAL. IVP ONE (12:30)
[2021-10-14] MEDS ORDERED: IV NORMAL SALINE 1,000ML 1,000 ML IV SCH (12:30)
--- NOTE | 2021-10-14 13:17 | RAD ---
Exam: CT abdomen/pelvis without intravenous contrast Indication: Left upper quadrant pain, nausea Comparison: CT abdomen pelvis 10/12/2021 Technique: Helical CT imaging performed of the abdomen and pelvis without the use of intravenous cont rast. Sagittal and coronal reformats were obtained. One or more of the following individualized dose reduction techniques were utilized for this examinat ion: 1. Automated exposure control 2. Adjustment of the mA and/or kV according to patient size 3. Use of iterative reconstruction technique. Findings: Inherently limited evaluation without intravenous contrast. Lower chest: Lung bases are clear. The heart is normal in size. There are bilateral breast implants, incompletely visualized Liver: Normal noncontrast appearance of the liver. Gallbladder/Biliary Tree: Normal. Pancreas: Unchanged appearance of the pancreas with multiple calcifications and mild atrophy. No main duct dilation. Spleen: Normal. Adrenal Glands: Normal. Kidneys/Ureters/Bladder: Kidneys are normal in size. No nephrolithiasis. Ureters are normal. The blad [place] is decompressed. Reproductive Organs: Uterus is anteverted. No adnexal mass. Stomach, small bowel, and colon: The stomach, small bowel, appendix, and colon are normal. Vasculature: No aortic aneurysm. Mild calcified atherosclerosis. Lymph Nodes: No lymphadenopathy. Peritoneum and retroperitoneum: No free fluid or free air. Bones: No acute osseous abnormality. There is levoscoliosis. Miscellaneous: None. IMPRESSION: 1. No acute abnormality. 2. Unchanged appearance of chronic pancreatitis. Electronically signed by: Rebeca Cronin MD (10/14/2021 1:14 PM) [id number]
[2021-10-14 13:27] LABS: BACTERIA,URINE FEW /HPF (0-FEW); CLARITY,URINE CLEAR; COLOR,URINE YELLOW; GLUCOSE,URINE NEG (NEG); NITRITE,URINE NEG (NEG); RBC,URINE 0 /HPF (0-2); SQUAMOUS EPITHELIAL CELL,UR MOD /LPF; UROBILINOGEN,URINE 0.2 mg/dL (0.2 mg/dL); WBC,URINE OCC /HPF (0-4)
--- NOTE | 2021-10-14 13:47 | PHYS DOC ---
Past History Past Medical History: Alcoholism, COPD, GERD, Pancreatitis Additional Past Medical Histor: breast cancer, kyphosis, scoliosis, DDD, PUD Past Surgical History: Other Additional Past Surgical Histo: double mastectomy; breast reconstruction Smoking: Greater than 1 pack/day Alcohol Use: Sober Drug Use: None General Adult EDM: Chief Complaint: ABDOMINAL PAIN HPI: HPI: Patient is a 56-year-old female presents with abdominal pain. Patient states that she has a history of chronic pancreatitis and her symptoms are similar to her attacks. Denies nausea or vomiting. Denies fever. Patient reports taking Tylenol at home with no relief. Patient has a history of alcoholism. Patient reports that she quit drinking alcohol 2 months ago. Denies chest pain, shortness of breath. History of COPD, alcoholism, anxiety, depression, pancreatitis. Review of Systems: Review of Systems: ROS At least 10 ROS systems have been reviewed and are negative except as documented in the HPI. General: Negative except as outlined in HPI above. Skin: Negative except as outlined in HPI above. HEENT: Negative except as outlined in HPI above. Neck: Negative except as outlined in HPI above. Respiratory: Negative except as outlined in HPI above.. Cardiovascular: Negative except as outlined in HPI above. Abdomen: Negative except as outlined in HPI above. : Negative except as outlined in HPI above. Back/MSK: Negative except as outlined in HPI above. Neuro: Negative except as outlined in HPI above. Psych: Negative except as outlined in HPI above. Current Medications: Current Meds: Current Medications Medications (Trade) Dose Ordered Sig/Travis Start Time Stop Time Status Last Admin Dose Admin Fentanyl Citrate (Fentanyl 2ml Vial) 25 mcg 1X ONCE 10/14/21 12:30 10/14/21 12:48 DC 10/14/21 13:28 25 MCG Ondansetron HCl (Zofran) 4 mg 1X ONCE 10/14/21 12:30 10/14/21 12:48 DC 10/14/21 13:28 4 MG Sodium Chloride 1,000 ml @ 1,000 mls/hr Q1H 10/14/21 12:30 10/14/21 13:29 DC 10/14/21 13:28 1,000 MLS/HR Allergies: Allergies: Allergies Coded Allergies Type Severity Reaction Last Updated Verified Sulfa (Sulfonamide Antibiotics) Allergy Intermediate N/V hives 08/13/21 Yes ibuprofen Allergy Unknown 08/13/21 Yes Physical Exam: PE: Constitutional: Well developed, well nourished, no acute distress, non-toxic appearance, tearful HENT: Normocephalic, atraumatic, bilateral external ears normal, oropharynx moist, no oral exudates, nose normal. [] Eyes: PERRLA, EOMI, conjunctiva normal, no discharge. [] Neck: Normal range of motion, no tenderness, supple, no stridor. [] Cardiovascular:Heart rate regular rhythm, no murmur [] Lungs & Thorax: Bilateral breath sounds clear to auscultation [] Abdomen: Bowel sounds normal, soft, left-sided tenderness Skin: Warm, dry, no erythema, no rash. [] Back: No tenderness, no CVA tenderness. [] Extremities: No tenderness, no cyanosis, no clubbing, ROM intact, no edema. [] Neurologic: Alert and oriented X 3, normal motor function, normal sensory function, no focal deficits noted. [] Psychologic: Affect normal, judgement normal, mood normal. [] Current Patient Data: Labs: Laboratory Tests Test 10/14/21 12:42 Urine Collection Type Clean catch Urine Color Yellow Urine Clarity Clear Urine pH 6.0 Urine Specific Sterling 1.015 Urine Protein Neg (NEG-TRACE) Urine Glucose (UA) Neg mg/dL (NEG) Urine Ketones (Stick) Neg mg/dL (NEG) Urine Blood Neg (NEG) Urine Nitrite Neg (NEG) Urine Bilirubin Neg (NEG) Urine Urobilinogen Dipstick 0.2 mg/dL (0.2 mg/dL) Urine Leukocyte Esterase Trace (NEG) Urine RBC 0 /HPF (0-2) Urine WBC Occ /HPF (0-4) Urine Squamous Epithelial Cells Mod /LPF Urine Bacteria Few /HPF (0-FEW) Vital Signs: Vital Signs Date Time Temp Pulse Resp B/P (MAP) Pulse Ox O2 Delivery O2 Flow Rate FiO2 10/14/21 12:35 98.4 75 16 136/78 (97) 100 Room Air EKG: EKG: [] Radiology/Procedures: Radiology/Procedures: []Exam: CT abdomen/pelvis without intravenous contrast Indication: Left upper quadrant pain, nausea Comparison: CT abdomen pelvis 10/12/2021 Technique: Helical CT imaging performed of the abdomen and pelvis without the use of intravenous contrast. Sagittal and coronal reformats were obtained. One or more of the following individualized dose reduction techniques were utilized for this examination: 1. Automated exposure control 2. Adjustment of the mA and/or kV according to patient size 3. Use of iterative reconstruction technique. Findings: Inherently limited evaluation without intravenous contrast. Lower chest: Lung bases are clear. The heart is normal in size. There are bilateral breast implants, incompletely visualized Liver: Normal noncontrast appearance of the liver. Gallbladder/Biliary Tree: Normal. Pancreas: Unchanged appearance of the pancreas with multiple calcifications and mild atrophy. No main duct dilation. Spleen: Normal. Adrenal Glands: Normal. Kidneys/Ureters/Bladder: Kidneys are normal in size. No nephrolithiasis. Ureters are normal. The bladder is decompressed. Reproductive Organs: Uterus is anteverted. No adnexal mass. Stomach, small bowel, and colon: The stomach, small bowel, appendix, and colon are normal. Vasculature: No aortic aneurysm. Mild calcified atherosclerosis. Lymph Nodes: No lymphadenopathy. Peritoneum and retroperitoneum: No free fluid or free air. Bones: No acute osseous abnormality. There is levoscoliosis. Miscellaneous: None. IMPRESSION: 1. No acute abnormality. 2. Unchanged appearance of chronic pancreatitis. Electronically signed by: Rebeca Cronin MD (10/14/2021 1:14 PM) [id number] Heart Score: C/O Chest Pain: No Risk Factors: Risk Factors: DM, Current or recent (<one month) smoker, HTN, HLP, family history of CAD, obesity. Risk Scores: Score 0 - 3: 2.5% MACE over next 6 weeks - Discharge Home Score 4 - 6: 20.3% MACE over next 6 weeks - Admit for Clinical Observation Score 7 - 10: 72.7% MACE over next 6 weeks - Early Invasive Strategies Course & Med Decision Making: Course & Med Decision Making Pertinent Labs and Imaging studies reviewed. (See chart for details) [] 56-year-old female presents with left-sided abdominal pain. Patient has a history of chronic pancreatitis. Patient reports that her pain feels similar to past acute episodes. Work-up in ER consist of CBC, CMP, lipase, CT abdomen and pelvis. All labs unremarkable. CT abdomen pelvis shows unchanged chronic pancreatitis. Patient's pain and nausea was treated while in the emergency room. Patient states that pain had improved but is now returning. I discussed discharging patient home with pain medication. Patient agrees with discharge plan and thinks that she is able to manage her discomfort at home with p.o. meds. Discussed return precautions in length. Patient verbalizes understanding of discharge instructions. Patient currently sees Dr. Jules and is going to follow-up with him next week for pain management appointment. Conrad Disclaimer: Conrad Disclaimer: This electronic medical record was generated, in whole or in part, using a voice recognition dictation system. Departure Departure: Impression: Primary Impression: Chronic pancreatitis Qualified Codes: K86.1 - Other chronic pancreatitis Disposition: HOME / SELF CARE / HOMELESS Condition: STABLE Referrals: DANA JULES MD (PCP) Patient Instructions: Acute Pancreatitis, [id number] Additional Instructions: You are seen emergency room for abdominal pain. I am sending you home with pain and nausea medication. Please follow-up with Dr. Jules next week for further management and pain management referral. Return to the ER if you have worsening symptoms or concerns such as uncontrolled vomiting, fever, uncontrolled pain. EMERGENCY DEPARTMENT GENERAL DISCHARGE INSTRUCTIONS Thank you for coming to [facility] (ED) today and trusting us with you care. We trust that you had a positivie experience in our Emergency Department. If you wish to speak to the department management, you may call the director at [phone]. YOUR FOLLOW UP INSTRUCTIONS ARE FOLLOWS: 1. Do you have a private Doctor? If you do not have a private doctor, please ask for a resource list of physicians or clinics that may be able to assist you with follow up care. 2. The Emergency Physician has interpreted your x-rays. The X-Ray specialist will also review them. If there is a change in the findings, you will be notified in 48 hours when at all possible. 3. A lab test or culture has been done, your results will be reviewed and you will be notified if you need a change in treatment. ADDITIONAL INSTRUCTIONS AND INFORMATION: 1. Your care today has been supervised by a physician who is specially trained in emergency care. Many problems require more than one evaluation for a complete diagnosis and treatment. We recommend that you schedule your follow up appointment as recommended to ensure complete treatment of you illness or injury. If you are unable to obtain follow up care and continue to have a problem, or if your condition worsens, we recommend that you return to the ED. 2. We are not able to safely determine your condition over the phone nor are we able to give sound medical advice over the phone. For these safety reasons, if you call for medical advice we will ask you to come to the ED for further evaluation. 3. If you have any questions regarding these discharge instructions please call the ED at [phone]. SAFETY INFORMATION: In the interest of safety, wellness, and injury prevention; we encourage you to wear your sealbelt, if you smoke; quite smoking, and we encourage family to use a protective helmet for bicycling and other sporting events that present an increased risk for head injury. IF YOUR SYMPTOMS WORSEN OR NEW SYMPTOMS DEVELOP, OR YOU HAVE CONCERNS ABOUT YOUR CONDITION; OR IF YOUR CONDITION WORSENS WHILE YOU ARE WAITING FOR YOUR FOLLOW UP APPOINT MENT; EITHER CONTACT YOUR PRIMARY CARE DOCTOR, THE PHYSICIAN WHOSE NAME AND NUMBER YOU WERE GIVEN, OR RETURN TO THE ED IMMEDIATELY. Scripts Ondansetron (ONDANSETRON ODT) 4 Mg Tab.rapdis 1 TAB PO PRN Q6-8HRS PRN for NAUSEA/VOMITING for 7 Days, #16 TAB 0 Refills Prov: LUIZA ABEBE APRN 10/14/21 Hydrocodone/Acetaminophen (Hydrocodone-Acetamin 5-325 mg) 1 Each Tablet 1-2 EACH PO Q4-6HRS PRN for PAIN for 3 Days, #12 TAB Prov: LUIZA ABEBE APRN 10/14/21 LUIZA ABEBE APRN October 14, 2021 13:47
[2021-10-14 14:01] LABS: BASO % 1 % (0-3); EOS # 0.1 x10^3/uL (0.0-0.7); EOS % 2 % (0-3); HEMATOCRIT 39.9 % (36.0-47.0); HEMOGLOBIN 13.4 g/dL (12.0-15.5); LYMPH # 2.1 x10^3/uL (1.0-4.8); LYMPH % 31 % (24-48); MEAN CORPUSCULAR HEMOGLOBIN 34 pg (25-35); MEAN CORPUSCULAR HGB CONC 34 g/dL (31-37); MEAN CORPUSCULAR VOLUME 102 fL (79-100); MONO # 0.4 x10^3/uL (0.0-1.1); MONO % 6 % (0-9); NEUT # 4.1 x10^3uL (1.8-7.7); NEUT % 61 % (31-73); PLATELET COUNT 296 x10^3/uL (140-400); RED BLOOD COUNT 3.93 x10^6/uL (3.50-5.40); RED CELL DISTRIBUTION WIDTH 16.6 % (11.5-14.5); WHITE BLOOD COUNT 6.7 x10^3/uL (4.0-11.0)
[2021-10-14 14:07] LABS: CALCIUM 9.4 mg/dL (8.5-10.1); CREATININE 0.7 mg/dL (0.6-1.0); GFR 86.6; POTASSIUM 4.9 mmol/L (3.5-5.1)
[2021-10-14 14:13] LABS: ALBUMIN 3.7 g/dL (3.4-5.0); ALBUMIN/GLOBULIN RATIO 1.1 (1.0-1.7); TOTAL BILIRUBIN 0.4 mg/dL (0.2-1.0); TOTAL PROTEIN 7.1 g/dL (6.4-8.2)
[2021-10-14] MEDS ORDERED: ONDA4TAB12 PO (14:54)
[2021-10-14] MEDS ORDERED: HYDR-2759 PO (14:54)
[2021-10-14] MEDS ORDERED: HYDROcodone/APAP 5/325MG 1 TAB TABLET PO ONE (15:00)
[2021-10-14 15:15] VITALS: BP 121/75
== END 2021-10-14 15:28 | disposition home or self-care (01) ==
LOC: ER 11:55
DX: K86.1 Other chronic pancreatitis (principal); F10.20 Alcohol dependence, uncomplicated; Y90.9 Presence of alcohol in blood, level not specified; J44.9 Chronic obstructive pulmonary disease, unspecified; K21.9 Gastro-esophageal reflux disease without esophagitis; F17.200 Nicotine dependence, unspecified, uncomplicated; Z88.2 Allergy status to sulfonamides; Z88.6 Allergy status to analgesic agent
CPT/HCPCS: 36415; 74176; 80053; 81001; 83690; 85025; 87086; 93005; 96361; 96374; 96375; 99285; J2405; J3010; J7030

== ENCOUNTER 2021-10-15 15:16 | Inpatient (IN) | payer MEDICAID ==
[~2021-10-15] VITALS: Ht 170.2 cm; Wt 61.0 kg
[2021-10-15] MEDS ORDERED: ONDANSETRON PF 4 MG/2 ML VIAL. IVP ONE (15:30)
[2021-10-15] MEDS ORDERED: IV RINGERS SOLUTION,LACTATED 1,000 ML IV ONE (15:30)
--- NOTE | 2021-10-15 15:30 | PHYS DOC ---
Past History Past Medical History: Alcoholism, COPD, GERD, Pancreatitis Additional Past Medical Histor: breast cancer, kyphosis, scoliosis, DDD, PUD Past Surgical History: Other Additional Past Surgical Histo: double mastectomy; breast reconstruction Smoking: Greater than 1 pack/day Alcohol Use: Sober Drug Use: None General Adult EDM: Chief Complaint: ABDOMINAL PAIN HPI: HPI: Patient is a 56-year-old female coming into the department for epigastric abdominal pain, vomiting diarrhea. Patient has had sips of water today. States her diarrhea is dark and blackish in color, no bright blood. This is patient's fourth emergency department visit in 4 days. Patient is a history of chronic pancreatitis. Patient states she has not had any alcohol in 2 months and 5 days. She has a history of gastric ulcers, and has not been taking any NSAIDs. Has been taking Tylenol for pain. No fevers or cough. Review of Systems: Review of Systems: All other systems within normal limits except for as noted in the HPI Current Medications: Current Meds: Current Medications Medications (Trade) Dose Ordered Sig/Travis Start Time Stop Time Status Last Admin Dose Admin Fentanyl Citrate (Fentanyl 2ml Vial) 75 mcg 1X ONCE 10/15/21 15:30 10/15/21 15:31 UNV Lactated Ringer's 1,000 ml @ 1,000 mls/hr 1X ONCE 10/15/21 15:30 10/15/21 16:29 UNV Ondansetron HCl (Zofran) 4 mg 1X ONCE 10/15/21 15:30 10/15/21 15:31 UNV Allergies: Allergies: Allergies Coded Allergies Type Severity Reaction Last Updated Verified Sulfa (Sulfonamide Antibiotics) Allergy Intermediate N/V hives 08/13/21 Yes ibuprofen Allergy Unknown 08/13/21 Yes Physical Exam: PE: Constitutional: Well developed, well nourished, no acute distress, non-toxic appearance. [] HENT: Normocephalic, atraumatic, bilateral external ears normal, nose normal. [] Eyes: PERRLA, conjunctiva normal, no discharge. [] Neck: No rigidity, supple, no stridor. [] Cardiovascular: tachycardic, regular rhythm, brisk cap refill [] Lungs & Thorax: Non labored symmetric respirations, no tachypnea or respiratory distress [] Abdomen: Soft, nondistended, epigastric tenderness. Skin: Warm, dry, no erythema, no rash. [] Back: Unremarkable Extremities: No deformities, range of motion grossly intact, no lower extremity edema [] Neurologic: Alert and oriented X 3, no focal deficits noted. [] Psychologic: Affect normal, judgement normal, mood normal. [] EKG: EKG: Sinus tachycardia, heart rate 122 bpm, normal axis, no ischemic changes, no ectopy, borderline QT prolongation. [] Radiology/Procedures: Radiology/Procedures: [] Heart Score: C/O Chest Pain: No Risk Factors: Risk Factors: DM, Current or recent (<one month) smoker, HTN, HLP, family history of CAD, obesity. Risk Scores: Score 0 - 3: 2.5% MACE over next 6 weeks - Discharge Home Score 4 - 6: 20.3% MACE over next 6 weeks - Admit for Clinical Observation Score 7 - 10: 72.7% MACE over next 6 weeks - Early Invasive Strategies Course & Med Decision Making: Course & Med Decision Making Pertinent Labs and Imaging studies reviewed. (See chart for details) Patient with fourth visit to emergency department for same complaints 4 days. Patient is not able to keep up with outpatient treatment for chronic pancreatitis. Patient admission accepted by Dr. Mandel [] Conrad Disclaimer: Conrad Disclaimer: This electronic medical record was generated, in whole or in part, using a voice recognition dictation system. Departure Departure: Impression: Primary Impression: Acute on chronic pancreatitis Disposition: ADMITTED INPATIENT Admitting Physician: Raul Mandel Condition: STABLE Referrals: DANA JULES MD (PCP) SHANKAR MONAE MD October 15, 2021 15:30
[2021-10-15 15:50] LABS: BASO # 0.1 x10^3/uL (0.0-0.2); BASO % 1 % (0-3); EOS % 0 % (0-3); HEMOGLOBIN 15.1 g/dL (12.0-15.5); LYMPH # 2.2 x10^3/uL (1.0-4.8); LYMPH % 20 % (24-48); MEAN CORPUSCULAR HEMOGLOBIN 33 pg (25-35); MEAN CORPUSCULAR HGB CONC 33 g/dL (31-37); MEAN CORPUSCULAR VOLUME 101 fL (79-100); MONO # 0.5 x10^3/uL (0.0-1.1); MONO % 4 % (0-9); NEUT # 8.5 x10^3uL (1.8-7.7); NEUT % 75 % (31-73); PLATELET COUNT 357 x10^3/uL (140-400); RED BLOOD COUNT 4.54 x10^6/uL (3.50-5.40); RED CELL DISTRIBUTION WIDTH 16.5 % (11.5-14.5); WHITE BLOOD COUNT 11.3 x10^3/uL (4.0-11.0)
[2021-10-15 16:03] LABS: CALCIUM 9.8 mg/dL (8.5-10.1); CREATININE 0.8 mg/dL (0.6-1.0); GFR 74.2; POTASSIUM 4.5 mmol/L (3.5-5.1)
[2021-10-15 16:13] LABS: ALBUMIN 4.1 g/dL (3.4-5.0); ALBUMIN/GLOBULIN RATIO 1.1 (1.0-1.7); MAGNESIUM 1.9 mg/dL (1.8-2.4); PHOSPHORUS 4.5 mg/dL (2.6-4.7); TOTAL BILIRUBIN 0.5 mg/dL (0.2-1.0)
[2021-10-15] MEDS ORDERED: ONDANSETRON PF 4 MG/2 ML VIAL. IVP PRN (17:15)
[2021-10-15] MEDS ORDERED: ACETAMINOPHEN 325 MG TABLET PO PRN (17:15)
[2021-10-15 17:30] LABS: FECAL OB PT NEGATIVE (NEG)
[2021-10-15 18:37] VITALS: BP 87/63
[2021-10-15] MEDS: IV RINGERS SOLUTION,LACTATED 1,000 ML IV SCH (20:30)
[2021-10-15] MEDS: NICOTINE 21MG PATCH. TD SCH (21:24)
[2021-10-15] MEDS: DIPHENOXYLATE/ATROPINE TABLET. PO PRN (21:25)
[2021-10-15 23:09] VITALS: BP 92/64
[2021-10-16 02:29] LABS: BARBITURATES NEG (NEG); BENZODIAZEPINES NEG (NEG); CANNABINOIDS NEG (NEG); COCAINE NEG (NEG); METHADONE NEG (NEG); OPIATES POS (NEG); PHENCYCLIDINE NEG (NEG)
[2021-10-16 02:30] LABS: BACTERIA,URINE FEW /HPF (0-FEW); CLARITY,URINE CLEAR; COLOR,URINE YELLOW; GLUCOSE,URINE NEG (NEG); NITRITE,URINE NEG (NEG); RBC,URINE 0 /HPF (0-2); SQUAMOUS EPITHELIAL CELL,UR OCC /LPF; UROBILINOGEN,URINE 0.2 mg/dL (0.2 mg/dL)
[2021-10-16 02:33] LABS: AMPHETAMINE/METHAMPHETAMINE NEG (NEG)
[2021-10-16 05:20] VITALS: BP 100/69
[2021-10-16 06:52] LABS: CALCIUM 8.7 mg/dL (8.5-10.1); CREATININE 0.7 mg/dL (0.6-1.0); GFR 86.6; POTASSIUM 4.1 mmol/L (3.5-5.1)
[2021-10-16 06:53] LABS: BASO % 1 % (0-3); EOS # 0.2 x10^3/uL (0.0-0.7); EOS % 3 % (0-3); HEMATOCRIT 37.6 % (36.0-47.0); HEMOGLOBIN 12.5 g/dL (12.0-15.5); LYMPH % 29 % (24-48); MEAN CORPUSCULAR HEMOGLOBIN 34 pg (25-35); MEAN CORPUSCULAR HGB CONC 33 g/dL (31-37); MEAN CORPUSCULAR VOLUME 102 fL (79-100); MONO # 0.5 x10^3/uL (0.0-1.1); MONO % 8 % (0-9); NEUT # 4.1 x10^3uL (1.8-7.7); NEUT % 60 % (31-73); PLATELET COUNT 259 x10^3/uL (140-400); RED BLOOD COUNT 3.69 x10^6/uL (3.50-5.40); RED CELL DISTRIBUTION WIDTH 16.5 % (11.5-14.5); WHITE BLOOD COUNT 6.9 x10^3/uL (4.0-11.0)
--- NOTE | 2021-10-16 08:31 | HP ---
DATE OF SERVICE: 10/16/2021 ADMIT DATE: 10/15/2021 ATTENDING PHYSICIAN: Dr. Mandel. CHIEF COMPLAINT: Epigastric and abdominal pain. HISTORY OF PRESENT ILLNESS: The patient is a 56-year-old female with known chronic pancreatitis. She has been to the ER every day for the last 3 days. She has had diarrhea, no blood. She feels a little weak. She has chronic pancreatitis. She has not drank any alcohol for the last 2 months. Workup showed gastroenteritis on CT. There is no obstruction. Pancreatic issues are chronic in nature. She is admitted then with probably a self-limiting gastroenteritis and treatment of symptoms and pain. PAST MEDICAL HISTORY: Alcoholic pancreatitis, COPD, gastroesophageal reflux disease, history of breast cancer with bilateral mastectomies, degenerative arthritis, breast reconstruction. SOCIAL HISTORY: She quit drinking 2 months ago. She has been sober since. Still smokes a pack and a half of cigarettes daily. FAMILY HISTORY: Noncontributory. REVIEW OF SYSTEMS: Significant for the GI symptoms. No fevers, no cough or congestion. All other systems reviewed and turned to be negative. PHYSICAL EXAMINATION: GENERAL: When I saw her, this is an alert, middle-aged female. VITAL SIGNS: Showed a blood pressure of 100/69, her pulse is 80 and regular. She was afebrile, oxygen saturation 93% on room air. HEENT: Head is without trauma. Pupils are reactive. Sclerae nonicteric. Oropharynx clear. NECK: Supple. LUNGS: Clear to auscultation. Bilateral mammary augmentation identified. ABDOMEN: Soft. No guarding. No rebound tenderness. Hypoactive bowel sounds. EXTREMITIES: Without edema. NEUROLOGIC: Function focally intact. Speech is fluent. LABORATORY DATA: Hemoglobin 15.1 g/dL, white count 11,300. Transaminases are normal. Lipase was 64. Liver panel was normal. ASSESSMENT: 1. A 56-year-old female with gastroenteritis self-limiting. 2. Chronic pancreatitis without any acute flareup at this time. 3. Chronic obstructive pulmonary disease. 4. History of breast cancer. PLAN: 1. Admit to the inpatient unit. 2. Gentle IV hydration. 3. Pain and nausea control. 4. Advance diet as tolerated. REYNALDO/REINA DR: Jacquelyn TID: [id number] CC: Zacarias Ornelas MD
[2021-10-16] MEDS: NICOTINE 21MG PATCH. TD SCH (08:40)
[2021-10-16] MEDS ORDERED: NICOTINE 21MG PATCH. TD SCH (09:00)
[2021-10-16] MEDS: IV RINGERS SOLUTION,LACTATED 1,000 ML IV SCH ×2 (10:22→22:37)
[2021-10-16 11:48] VITALS: BP 101/70
[2021-10-16 15:38] VITALS: BP 107/77
[2021-10-16 19:30] VITALS: BP 105/68
[2021-10-16 22:49] VITALS: BP 97/64
[2021-10-17 05:52] VITALS: BP 127/79
[2021-10-17] MEDS: NICOTINE 21MG PATCH. TD SCH (08:07)
[2021-10-17] MEDS: DIPHENOXYLATE/ATROPINE TABLET. PO PRN (08:09)
--- NOTE | 2021-10-17 11:59 | DS ---
DATE OF DISCHARGE: 10/17/2021 ATTENDING PHYSICIAN: Dr. Mandel. FINAL DISCHARGE DIAGNOSES: 1. Gastroenteritis, most likely due to poorly controlled peptic ulcer disease. 2. Chronic pancreatitis without evidence of acute pancreatitis at this time. 3. Chronic obstructive pulmonary disease. 4. History of breast cancer. HISTORY AND PHYSICAL: The patient is age 56. Six months ago she was diagnosed with peptic ulcer disease. She was scheduled to have an endoscopy. This never went through. She was prescribed Protonix, but she rarely takes it. In talking to her, she skips doses and takes it sporadically. She had nausea, vomiting, diarrhea. Pancreatitis is a chronic issue, but no active disease. CT of the abdomen shows no acute pancreatitis. She was admitted for further treatment and evaluation. PHYSICAL EXAMINATION: Please see the dictated note. PERTINENT LABORATORY AND X-RAY STUDIES: Her admission hemoglobin was 15.1 grams, repeated with hydration was down to 12.5 grams. MCV is 102 suggesting a significant alcohol use. Chemistry is within normal range. COURSE IN THE HOSPITAL: The patient was admitted. She was started on IV hydration, serial chemistries. MCV is suggestive of continued alcohol use. She states she has stopped drinking. Whether or not this is true remains to be seen. She continues to smoke heavily and she has been noncompliant with her meds. On the third hospital day, her vital signs were stable. She was eating, she was doing better. I wrote her a script for Protonix 40 mg p.o. daily. She has a followup visit this coming with Dr. Ornelas. Strong encouragement to avoid further alcohol and to avoid tobacco use, whether or not she will quit smoking and refrain from alcohol use remains to be seen. She was discharged then from our hospital in stable condition with explicit drug and followup care. Total discharge time spent 39 minutes. REYNALDO/REINA DR: REYNALDO/mercedes TID: [id number] CC: Zacarias Ornelas MD
== END 2021-10-17 09:10 | disposition home or self-care (01) | DRG 384 ==
LOC: ER 15:16 → ER HOLD 17:14 → 1 SOUTH 17:46
PROVIDERS: ADMIT Hospitalist; ATTEND Hospitalist
DX: K27.9 Peptic ulcer, site unspecified, unspecified as acute or chronic, without hemorrhage or perforation (principal); K86.1 Other chronic pancreatitis; J44.9 Chronic obstructive pulmonary disease, unspecified; K52.9 Noninfective gastroenteritis and colitis, unspecified; F17.200 Nicotine dependence, unspecified, uncomplicated; M41.9 Scoliosis, unspecified; Z85.3 Personal history of malignant neoplasm of breast; Z87.11 Personal history of peptic ulcer disease; Z90.13 Acquired absence of bilateral breasts and nipples; Z91.14 Patient's other noncompliance with medication regimen; F10.20 Alcohol dependence, uncomplicated; K21.9 Gastro-esophageal reflux disease without esophagitis; M19.90 Unspecified osteoarthritis, unspecified site; Z20.822 Contact with and (suspected) exposure to COVID-19
CPT/HCPCS: 36415; 80048; 80053; 80307; 81001; 82274; 83690; 83735; 84100; 84484; 85025; 87086; 87493; 93005; 96374; 99406; G0480; J2405; J3010; J7120; U0003; 99285-25